=== PATIENT | female | born 1995 | race Caucasian/White ===

== ENCOUNTER → 2017-06-24 09:34 | Outpatient (CLI) | payer MEDICAID, SELFPAY ==
--- NOTE | 2017-06-24 09:39 | US_ITS ---
STUDY: SECOND AND THIRD TRIMESTER OBSTETRICAL ULTRASOUND REASON FOR EXAM: Female, 22 years old. Routine survey. LMP: February 10, 2017. TECHNIQUE: Transabdominal PRIOR ULTRASOUND: Comparison is made with prior study dated May 23, 2017. FINDINGS: There is a single intrauterine fetus. The fetus is in a variable presentation. There is demonstrated cardiac activity with a heart rate of 155 bpm. There is a normal amniotic fluid volume. The largest amniotic fluid pocket measures 5.5 cm x 5.4 cm. The placenta is anterior and fundal in location and is not low lying. There are Grade 0 placental changes. The cervix measures 3.4 cm in length. The adnexal regions are not visualized. BIOMETRY: BPD: 4.26 cm: 19 weeks, 0 days HC: 15.86 cm: 18 weeks, 6 days AC: 13.62 cm: 19 weeks, 1 days FL: 2.62 cm: 8 weeks, 0 days CI: 80% FL/BPD: 62% FL/HC: FL/AC: 19% HC/AC: 1.16 age by current US: 18 weeks, 6 days. DARCIE by current US: November 19, 2017. Estimated weight: 247 grams, +/- 36 grams, 17 %. age by prior US: 18 weeks, 6 days. DARCIE by prior US: November 19, 2017. Age by LMP: 19 weeks, 1 days. DARCIE by LMP: November 17, 2017. ANATOMY: Gender: Male Cranium: Normal lateral ventricles. Normal choroid plexus. Normal cerebellum. Normal cisterna magna. Normal face, nose and lips. Chest: Normal 4-chamber heart. Abdomen/Pelvis: Normal diaphragm. Normal stomach. Normal abdominal wall. Normal cord insertion. Normal 3 vessel cord. Normal kidneys. Normal bladder. Spine: Normal cervical spine. Normal thoracic spine. Normal lumbar spine. Normal sacrum. Extremities: Normal bilateral upper extremities. Normal bilateral lower extremities. US/OB Anatomy Scan IMPRESSION: There is a single live intrauterine gestation with a mean gestational age of 18 weeks and 6 days. The measurements obtained today fall within the normal expected range. Electronically Signed: Chas Covarrubias MD at 12:35 EST Tel [phone], Service support ,
== END ==
PROVIDERS: Visit Provider Nurse Practitioner Women's Health
DX: Z34.02 Encounter for supervision of normal first pregnancy, second trimester (principal)
CPT/HCPCS: 76805

== ENCOUNTER 2017-07-06 23:41 | Emergency (ER) | payer MEDICAID, SELFPAY ==
[2017-07-06 23:42] VITALS: BP 116/63; PULSE 103; RESP 15; TEMP 35.9; BMI 27.3
[2017-07-07] MEDS: 0.9% Normal Saline 1,000 ML 1000 ML IV (00:12)
[2017-07-07] MEDS: Ondansetron 4 MG/2 ML Vial IV (00:13)
[2017-07-07 00:36] LABS: Anion Gap 9 (5-15); BUN 8 mg/dL (7-18); BUN/Creat Ratio 16.5 RATIO (10-20); Calcium,Total 8.5 mg/dL (8.5-10.1); Chloride 107 mmol/L (98-107); Creatinine, Serum 0.48 mg/dL (0.55-1.02); EST Glomerular Filtration Rate 170 mL/min (>60); Est Glom Filt Rate - Afr Amer 206 mL/min (>60); Estimated Creatinine Clearance 178.49 ml/min; Glucose 93 mg/dL (74-106); Potassium 3.4 mmol/L (3.5-5.1); Sodium Level 140 mmol/L (136-145)
--- NOTE | 2017-07-07 01:35 | ED.DCSUM_ITS ---
- ER Visit Summary Date of Service: 07/07/17 Chief Complaint: Vomiting and diarrhea History of Present Illness: The patient is a [address] Adrian Avalos and Dr. Kim. She is a at 21 weeks and 0 days . She reports she has vomiting and diarrhea that began yesterday. Said 7-8 episodes of diarrhea. She had 2 episodes of emesis. There is been no blood in either. No black stools. She reports that she has cramping lower abdominal pain is 8 out of 10 at worst and 510 currently. Is worsened by nothing relieved by nothing. She does reports that decreased movement. She denies any vaginal bleeding discharge. Patient denies sick contacts. Has not been camping out of the country. No possible bad food exposure. Does not drink well water. Patient reports that she is on antibiotic last month for a facial abscess. She does not remember the name of this. Physical Examination: Vitals: Stable. Afebrile. General: Well-nourished and well-developed. Head: Normocephalic atraumatic. Neck: Supple, no lymphadenopathy. No JVD. Nontender. Cardiovascular: Regular rate and rhythm. No murmurs. Respiratory: No respiratory distress. Clear to auscultation bilaterally. Abdominal: Soft, mild left lower quadrant tenderness to palpation, nondistended , normal bowel sounds. No guarding, rebound, or peritoneal signs. Gravid uterus. Back: Nontender. Extremities: Nontender, no edema. Skin: Normal color, no rash. Neurologic: Alert and oriented ?3. Cranial nerves II through XII are intact. Normal strength and sensation. Psych: Normal affect. Test Results: Chem-7 is marked for potassium at 3.4 and creatinine 0.48. Emergency Department Course and Treatment: The heart tones were 167. The patient was treated with Zofran IV. She was given a liter normal saline. She has had no vomiting or diarrhea while here. Treatment Plan: Patient was discussed with Dr. Cain. At this time there is no need for her to go to OB for monitoring. She will be discharged with Zofran instructed follow-up her primary care physician 1-2 days not improving. Disposition: To home in improved and stable condition. Impression: 1. Vomiting/diarrhea. 2. Second trimester . This note was generated with [employer] software. It may contain incorrect words, spelling, and punctuation that were not noted in review of the chart prior to signing ED Disposition - Plan for ED Patient: Disposition: Home or Assisted Living Chief Complaint: Nausea/Vomiting/Diarrhea Instructions: ED Vomiting Diarrhea Nonspecific Ad Prescriptions: Ondansetron [Zofran Odt] 4 mg PO Q8H PRN PRN #10 tablet PRN Reason: Nausea Referrals: Doctor,Your [STAFF PHYSICIAN] - 1-2 Days if not improving
[2017-07-07] MEDS: Ondansetron ODT 4 MG Tablet PO (01:45)
[2017-07-07 01:46] VITALS: BP 106/69; PULSE 110; RESP 15; O2SAT 100
== END 2017-07-07 01:54 | disposition home or self-care (01) ==
PROVIDERS: Emergency Provider Emergency Medicine; PCP Nurse Practitioner Family
DX: O21.9 Vomiting of pregnancy, unspecified (principal); O99.89 Other specified diseases and conditions complicating pregnancy, childbirth and the puerperium; R19.7 Diarrhea, unspecified; O99.332 Smoking (tobacco) complicating pregnancy, second trimester; Z3A.21 21 weeks gestation of pregnancy
CPT/HCPCS: 80048; 96361; 96374; 99283; J7030; J2405

== ENCOUNTER → 2017-08-27 14:33 | Outpatient (CLI) | payer MEDICAID, SELFPAY ==
[2017-08-27 15:34] LABS: Absolute Lymphocyte Count 1.65 X10^3/ul (0.83-4.51); Absolute Neutrophil Count 10.3 X10^3/uL (2.0-7.7); Basophil# 0.01 X10^3/uL; Basophil% 0.1 % (0-1); Eosinophils% 0.8 % (0-5); Hemoglobin 9.6 g/dl (12.0-15.0); Lymphocyte # 1.65 X10^3/ul (4.0); Lymphocyte % 12.9 % (19-41); Mean Corp Hgb Conc 33.1 g/gl (32-36); Mean Corpuscular Hgb 31.4 pg (27.0-32.0); Mean Corpuscular Volume 94.8 fL (81-99); Mean Platelet Vol. 9.8 fl (6.2-12.0); Monocyte# 0.71 X10^3/uL; Monocyte% 5.5 % (0-10); Neutrophil # 10.31 X10^3/uL (2.7-7.7); Neutrophil % 80.3 % (47-70); Platelet Count 307 K/mm3 (150-450); RBC Distribution Width CV 13.9 % (11.6-14.6); Red Blood Count 3.06 M/mm3 (4.2-5.4); White Blood Count 12.8 K/mm3 (4.4-11.0)
[2017-08-27 15:54] LABS: Glucose Challenge Gest 1H 50g 126 mg/dL (70-140)
[2017-08-27 16:11] LABS: POSITIVE COUNT NO; POSITIVE DIFFERENTIAL NO; POSITIVE MORPHOLOGY NO
[2017-08-28 09:25] LABS: HIV - WCH Non-Reactive (Nonreactive)
== END ==
PROVIDERS: Visit Provider Nurse Practitioner Women's Health
DX: O09.91 Supervision of high risk pregnancy, unspecified, first trimester (principal); Z3A.00 Weeks of gestation of pregnancy not specified
CPT/HCPCS: 36415; 82950; 85025; 86703; 86850; 86900

== ENCOUNTER → 2017-09-12 17:18 | Outpatient (CLI) | payer MEDICAID, SELFPAY ==
[2017-09-12 17:53] LABS: Amphetamine Urine VISTA NEGATIVE (<1000 ng/mL); Barbiturate Urine VISTA NEGATIVE (< 200 ng/mL); Benzodiazepine Urine VISTA NEGATIVE (< 200 ng/mL); Cocaine Urine VISTA NEGATIVE (< 300 ng/mL); Ecstacy Urine VISTA NEGATIVE (< 500 ng/mL); Methadone Urine VISTA NEGATIVE (< 300 ng/mL); PCP Urine VISTA NEGATIVE (< 25 ng/mL); THC Urine VISTA NEGATIVE (< 50 ng/mL); Vista UDS pH Range 7
== END ==
PROVIDERS: Visit Provider Nurse Practitioner Women's Health
DX: Z87.898 Personal history of other specified conditions (principal)
CPT/HCPCS: 80307

== ENCOUNTER → 2017-09-24 13:38 | Outpatient (CLI) | payer MEDICAID, SELFPAY | PROVIDERS: Visit Provider Obstetrics & Gynecology | DX: O99.019 Anemia complicating pregnancy, unspecified trimester (principal); Z3A.00 Weeks of gestation of pregnancy not specified | CPT/HCPCS: 36415 ==

== ENCOUNTER → 2017-09-26 15:10 | Outpatient (CLI) | payer MEDICAID, SELFPAY ==
[2017-09-26 16:34] LABS: Absolute Lymphocyte Count 2.04 X10^3/ul (0.83-4.51); Absolute Neutrophil Count 9.5 X10^3/uL (2.0-7.7); Basophil# 0.01 X10^3/uL; Basophil% 0.1 % (0-1); Eosinophil# 0.15 X10^3/uL; Eosinophils% 1.2 % (0-5); Hematocrit 30.1 % (37-47); Hemoglobin 9.8 g/dl (12.0-15.0); Lymphocyte # 2.04 X10^3/ul (4.0); Lymphocyte % 16.6 % (19-41); Mean Corp Hgb Conc 32.6 g/gl (32-36); Mean Corpuscular Hgb 30.8 pg (27.0-32.0); Mean Corpuscular Volume 94.7 fL (81-99); Monocyte# 0.58 X10^3/uL; Monocyte% 4.7 % (0-10); Neutrophil # 9.47 X10^3/uL (2.7-7.7); Neutrophil % 76.8 % (47-70); POSITIVE COUNT NO; POSITIVE DIFFERENTIAL NO; POSITIVE MORPHOLOGY NO; Platelet Count 317 K/mm3 (150-450); RBC Distribution Width CV 14.1 % (11.6-14.6); RBC Distribution Width SD 48.6 fl (35.1-43.9); Red Blood Count 3.18 M/mm3 (4.2-5.4); White Blood Count 12.3 K/mm3 (4.4-11.0)
== END ==
PROVIDERS: Visit Provider Nurse Practitioner Women's Health
DX: O99.019 Anemia complicating pregnancy, unspecified trimester (principal); Z3A.00 Weeks of gestation of pregnancy not specified
CPT/HCPCS: 85025

== ENCOUNTER → 2017-10-22 15:13 | Outpatient (CLI) | payer MEDICAID, SELFPAY ==
[2017-10-22 16:23] LABS: Group B Strep DNA By PCR Negative (Negative); Internal Control PASS; Probe Check PASS; Specimen Processing Control PASS
== END ==
PROVIDERS: Visit Provider Nurse Practitioner Women's Health
DX: Z34.90 Encounter for supervision of normal pregnancy, unspecified, unspecified trimester (principal); Z3A.36 36 weeks gestation of pregnancy
CPT/HCPCS: 87081; 87653

== ENCOUNTER 2017-10-24 21:52 | Outpatient (CLI) | payer MEDICAID, SELFPAY ==
[2017-10-24 22:29] VITALS: BMI 31.4
[2017-10-24 22:56] LABS: ROM Internal Control Test YES-OK TO RESULT pt. (Internal QC); ROM Patient Test Negative (Negative)
--- NOTE | 2017-10-25 07:14 | OB.TRI.NOTE ---
- Problem List (1) False labor Status: Acute History of Present Illness Date of Service: 10/24/17 Was patient seen by the physician?: No Reason For Visit: R/O LABOR Date of Service: 10/24/17 History of Present Illness: false labor questionable lof Allergies No Known Allergies Allergy (Verified 10/24/17 22:32) - Pertinent Past Medical History Medical History: Past Medical History (Last Reviewed 10/22/17 @ 13:28 by Carol Dela Cruz) Anxiety and depression Surgical History: Past Surgical History (Last Reviewed 10/22/17 @ 13:28 by Carol Dela Cruz) gallbladder surgery NST - FHR Rate Baby A Baseline: 140-150 Variability:: Moderate Accelerations:: 15 x 15 Decelerations:: None NST Reactive:: Yes FHR Category:: Category I Uterine Activity:: irregular Impression/Plan false labor dc home labor precautions kick counts
== END 2017-10-24 23:18 | disposition home or self-care (01) ==
LOC: WPOUT 22:13 → WP 22:14
PROVIDERS: Visit Provider Obstetrics & Gynecology
DX: O47.9 False labor, unspecified (principal); Z3A.00 Weeks of gestation of pregnancy not specified
CPT/HCPCS: 59025; 59050; 84112; 99218; G0378

== ENCOUNTER 2017-10-25 19:50 | Outpatient (CLI) | payer MEDICAID, SELFPAY ==
[2017-10-25 21:05] VITALS: BMI 31.3
--- NOTE | 2017-10-25 22:40 | OB.TRI.NOTE ---
- Problem List (1) Decreased movement Status: Acute (2) False labor Status: Acute History of Present Illness Date of Service: 10/25/17 Was patient seen by the physician?: Yes Reason For Visit: NST Date of Service: 10/25/17 Final DARCIE: 11/17/17 Gestational age: 36 Weeks and 5 Days History of Present Illness: 22 yo @ 36 weeks presents with decreased movement and follow up from last night, lower pelvic pain. she co some contractions, and feels some movememnt but less. denie sany vaginal bleeding or lof today Allergies No Known Allergies Allergy (Verified 10/25/17 21:26) - Pertinent Past Medical History Medical History: Past Medical History (Last Reviewed 10/22/17 @ 13:28 by Carol Dela Cruz) Anxiety and depression Surgical History: Past Surgical History (Last Reviewed 10/22/17 @ 13:28 by Carol Dela Cruz) gallbladder surgery Physical Exam General: Alert, Cooperative, No apparent distress HEENT: Atraumatic, Normocephalic. Negative for: Thyromegaly, Lymphadenopathy Cardiovascular: Regular rate Lungs: Normal air movement Abdomen: Soft, Non Tender, Gravid Neurological: Deep Tendon Reflexes 2+/4 and Symmetrical, Neuro grossly intact. Negative for: Clonus SOFTWARE QUALITY ASSURANCE SPECIALIST: Normal external genitalia. Negative for: Vulvar lesions Estimated gestational size: Appropriate for gestational size Presentation: Cephalic NST - FHR Rate Baby A Baseline: 150-160 Variability:: Minimal, Moderate Accelerations:: 15 x 15 Decelerations:: Variable NST Reactive:: Yes FHR Category:: Category I Uterine Activity:: irregular Impression/Plan 36 weeks false labor decreased movement limited US doen at bedside- josué 12 cm and 8/8 bpp. reassuring status, extended monitoring and dc home kick counts
--- NOTE | 2017-10-25 22:43 | OB.TRI.HP_ITS ---
- Problem List (1) Decreased movement Status: Acute (2) False labor Status: Acute History of Present Illness Date of Service: 10/25/17 Was patient seen by the physician?: Yes Reason For Visit: NST Date of Service: 10/25/17 Final DARCIE: 11/17/17 Gestational age: 36 Weeks and 5 Days History of Present Illness: 22 yo @ 36 weeks presents with decreased movement and follow up from last night, lower pelvic pain. she co some contractions, and feels some movememnt but less. denie sany vaginal bleeding or lof today Allergies No Known Allergies Allergy (Verified 10/25/17 21:26) - Pertinent Past Medical History Medical History: Past Medical History (Last Reviewed 10/22/17 @ 13:28 by Carol Dela Cruz) Anxiety and depression Surgical History: Past Surgical History (Last Reviewed 10/22/17 @ 13:28 by Carol Dela Cruz) gallbladder surgery Physical Exam General: Alert, Cooperative, No apparent distress HEENT: Atraumatic, Normocephalic. Negative for: Thyromegaly, Lymphadenopathy Cardiovascular: Regular rate Lungs: Normal air movement Abdomen: Soft, Non Tender, Gravid Neurological: Deep Tendon Reflexes 2+/4 and Symmetrical, Neuro grossly intact. Negative for: Clonus ENTRY ANALYST: Normal external genitalia. Negative for: Vulvar lesions Estimated gestational size: Appropriate for gestational size Presentation: Cephalic NST - FHR Rate Baby A Baseline: 150-160 Variability:: Minimal, Moderate Accelerations:: 15 x 15 Decelerations:: Variable NST Reactive:: Yes FHR Category:: Category I Uterine Activity:: irregular Impression/Plan 36 weeks false labor decreased movement limited US doen at bedside- josué 12 cm and 8/8 bpp. reassuring status, extended monitoring and dc home kick counts
== END 2017-10-25 22:07 | disposition home or self-care (01) ==
LOC: WPOUT 20:29 → WP 20:30
PROVIDERS: Visit Provider Obstetrics & Gynecology
DX: O36.8130 Decreased fetal movements, third trimester, not applicable or unspecified (principal); O47.03 False labor before 37 completed weeks of gestation, third trimester; Z3A.36 36 weeks gestation of pregnancy
CPT/HCPCS: 59025; 59050; 76815; 99218; G0378

== ENCOUNTER → 2017-11-05 14:49 | Outpatient (CLI) | payer MEDICAID, SELFPAY ==
[2017-11-05 15:33] LABS: Amphetamine Urine VISTA NEGATIVE (<1000 ng/mL); Barbiturate Urine VISTA NEGATIVE (< 200 ng/mL); Benzodiazepine Urine VISTA NEGATIVE (< 200 ng/mL); Cocaine Urine VISTA NEGATIVE (< 300 ng/mL); Ecstacy Urine VISTA NEGATIVE (< 500 ng/mL); Methadone Urine VISTA NEGATIVE (< 300 ng/mL); PCP Urine VISTA NEGATIVE (< 25 ng/mL); THC Urine VISTA NEGATIVE (< 50 ng/mL); Vista UDS pH Range 7
[2017-11-05 17:47] LABS: Absolute Lymphocyte Count 1.73 X10^3/ul (0.83-4.51); Absolute Neutrophil Count 10.6 X10^3/uL (2.0-7.7); Basophil# 0.02 X10^3/uL; Basophil% 0.1 % (0-1); Eosinophils% 0.7 % (0-5); Hematocrit 32.1 % (37-47); Hemoglobin 10.4 g/dl (12.0-15.0); Lymphocyte # 1.73 X10^3/ul (4.0); Lymphocyte % 12.8 % (19-41); Mean Corp Hgb Conc 32.4 g/gl (32-36); Mean Corpuscular Hgb 30.1 pg (27.0-32.0); Mean Corpuscular Volume 92.8 fL (81-99); Mean Platelet Vol. 10.3 fl (6.2-12.0); Monocyte# 0.97 X10^3/uL; Monocyte% 7.2 % (0-10); Neutrophil # 10.64 X10^3/uL (2.7-7.7); Neutrophil % 78.6 % (47-70); Platelet Count 405 K/mm3 (150-450); RBC Distribution Width CV 14.6 % (11.6-14.6); RBC Distribution Width SD 48.6 fl (35.1-43.9); Red Blood Count 3.46 M/mm3 (4.2-5.4); White Blood Count 13.5 K/mm3 (4.4-11.0)
[2017-11-05 18:00] LABS: Differential Comment SCANNED; Differential Indicated SCAN CRITERIA MET; POSITIVE COUNT NO; POSITIVE DIFFERENTIAL NO; POSITIVE MORPHOLOGY YES
== END ==
PROVIDERS: Visit Provider Obstetrics & Gynecology
DX: O99.019 Anemia complicating pregnancy, unspecified trimester (principal); Z87.898 Personal history of other specified conditions; Z3A.00 Weeks of gestation of pregnancy not specified
CPT/HCPCS: 36415; 80307; 85025

== ENCOUNTER 2017-11-10 02:10 | Outpatient (CLI) | payer MEDICAID, SELFPAY ==
[2017-11-10 02:33] VITALS: BMI 32.3
[2017-11-10 03:49] LABS: ROM Internal Control Test YES-OK TO RESULT pt. (Internal QC); ROM Patient Test Negative (Negative)
--- NOTE | 2017-11-10 13:04 | OB.TRI.NOTE ---
History of Present Illness Date of Service: 11/10/17 Was patient seen by the physician?: No Reason For Visit: R/O LABOR Date of Service: 11/10/17 History of Present Illness: co ctx Allergies No Known Allergies Allergy (Verified 11/10/17 03:07) - Pertinent Past Medical History Medical History: Past Medical History (Last Reviewed 11/05/17 @ 13:32 by Vijyaa Ellison) Anxiety and depression Surgical History: Past Surgical History (Last Reviewed 11/05/17 @ 13:32 by Vijaya Ellison) gallbladder surgery NST - FHR Rate Baby A Baseline: 150 Variability:: Moderate Accelerations:: 15 x 15 Decelerations:: None NST Reactive:: Yes FHR Category:: Category I Uterine Activity:: q2-5 minutes but irregular, no cervical change Impression/Plan no cervical change, false labor, dc home precautions
== END 2017-11-10 04:35 | disposition home or self-care (01) ==
LOC: WPOUT 02:46 → WP 02:57
PROVIDERS: Visit Provider Obstetrics & Gynecology
DX: O47.9 False labor, unspecified (principal); O99.340 Other mental disorders complicating pregnancy, unspecified trimester; F32.9 Major depressive disorder, single episode, unspecified; F41.9 Anxiety disorder, unspecified; Z3A.00 Weeks of gestation of pregnancy not specified
CPT/HCPCS: 59025; 59050; 84112; 99218; G0378

== ENCOUNTER 2017-11-13 05:30 | Inpatient (IN) | payer MEDICAID, SELFPAY ==
[2017-11-13 06:00] VITALS: BMI 32.5
[2017-11-13] MEDS: Lactated Ringers 1,000 ML 50 ML IV ×4 (06:05→10:51)
[2017-11-13 06:23] LABS: Hematocrit 30.4 % (37-47); Mean Corp Hgb Conc 32.9 g/gl (32-36); Mean Corpuscular Hgb 29.9 pg (27.0-32.0); Mean Platelet Vol. 9.7 fl (6.2-12.0); Platelet Count 343 K/mm3 (150-450); RBC Distribution Width CV 14.6 % (11.6-14.6); RBC Distribution Width SD 48.3 fl (35.1-43.9); Red Blood Count 3.34 M/mm3 (4.2-5.4); White Blood Count 16.4 K/mm3 (4.4-11.0)
[2017-11-13 06:25] LABS: Scan Indicated on CBC? Y/N NO
[2017-11-13] MEDS: Ondansetron 4 MG/2 ML Vial IV (08:12)
[2017-11-13] MEDS: Amnioinfusion- 0.9% NS 1,000 ML IV.SOLN. 200 ML INTRA-UTER (10:00)
[2017-11-13] MEDS: Oxytocin 30 units/NS 500 ml 30 UNITS/500 ML IV.SOLN 334 UNITS IV (11:20)
[2017-11-13] MEDS: Oxytocin 30 units/NS 500 ml 30 UNITS/500 ML IV.SOLN 167 UNITS IV (11:50)
[2017-11-13 17:09] VITALS: BP 108/66; PULSE 105; RESP 16; TEMP 38.1; O2SAT 98
[2017-11-13] MEDS: Acetaminophen 500 MG Tablet 1000 MG PO (17:17)
--- NOTE | 2017-11-13 20:05 | PCM.HP.OB ---
- Problem List (1) Anemia affecting Status: Acute Qualifiers: Comment: Fe started. 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 recommend random drug screening. History Date of Admission: 11/13/17 Final DARCIE: 11/17/17 Gestational age: 39 Weeks and 3 Days History of this : This is a 22 year-old, at 39 weeks gestational age presents IAL 5 cm dilated. she has had an uncomplicated Medical History: Medical History (Last Reviewed 11/12/17 @ 14:24 by Carol Dela Cruz) Anxiety and depression F41.8 Surgical History: Surgical History (Last Reviewed 11/12/17 @ 14:24 by Carol Dela Cruz) gallbladder surgery Allergies No Known Allergies Allergy (Verified 11/13/17 06:02) Home Medications: Home Medications vitamin,calcium,ohqkamnx-xiud-fmcfh acid tablet 1 tab PO QDAY 06/17/17 ferrous sulfate 325 mg (65 mg iron) tablet 325 mg PO QDAY tab 09/12/17 Citalopram Hydrobromide [Citalopram HBr] 20 mg PO QDAY 10/24/17 Smoking Status: Light Smoker (<10/day) Alcohol: None Number of Fetus(es): 1 Heart Tracin-160 moderate viarbaility reactive no decels TOCO Analysis: q2-3 History Past Pregnancies: Past Pregnancies Delivery Date Name GA/Weeks Outcome Route Weight Infant Gender Labor Length Anesthesia Delivery Location Provider FOB frida 39 Labs: Mom's Labs & Results 11/13/17 11/13/17 06:05 06:05 WBC 16.4 H RBC 3.34 L Hgb 10.0 L Hct 30.4 L MCV 91.0 MCH 29.9 MCHC 32.9 RDW 14.6 RDW Differential 48.3 H Plt Count 343 MPV 9.7 Blood Type O POSITIVE Antibody Screen NEGATIVE Course Did the patient receive Yes care? Labs Blood Type: O RH: POSITIVE RPR/VDRL/Syphilis Nonreactive Rubella status Immune HbSAg Negative Date Done: 06/20/17 Chlamydia Negative Gonorrhea Negative HIV/AIDS Non-Reactive Group B Strep: Negative Current Obstetrical History Gestational Diabetes No Incompetent Cervix No Infertility No IUGR No Macrosomia No Hypertension/Pre-eclampsia No Placenta Previa/Abruption No PTL/PROM No Uterine anomaly No Oligohydramnios No Polyhydramnios No Multiple gestation No Past Medical History Asthma No Diabetes No Hypertension No Heart disease No Mitral valve prolapse No Neurologic/Seizure disorder/ No Migraines Kidney disease No Liver disease No Varicosities No Clotting disorders/Hx of DVT No Thyroid Dysfunction No Other medical diseases No Psychiatric disorders Yes: anxiety, depression Major trauma No Abnormal PAP smear No Sleep apnea No Mammogram in the last 2 years No Social History Marital Status: SINGLE Alleged father Richard Glass Hx Smoking Yes Smoking Status Light Smoker (<10/day) How long have you used n/a substances (years)? What date/time did you last n/a use any of the above? Have you had any previous n/a inpatient or outpatient treatment Expected Delivery Method: Spontaneous Vaginal Review of Systems Constitutional: Denies: Fever, Malaise Eyes: Denies: Blurred vision, Vision Change HEENT: Denies: Head Aches, Visual Changes Cardiovascular: Denies: Chest Pain, Palpitations Respiratory: Denies: Cough, Shortness of Breath, Wheezing Gastrointestinal: Denies: Abdominal Pain, Diarrhea, Nausea, Vomiting Genitourinary: Denies: Dysuria, Hematuria Musculoskeletal: Denies: Joint Pain, Muscle pain Skin: Denies: Lesions, Rash Neurological: Denies: Blurred vision, Focal weakness, Headaches Psychiatric: Denies: Anxiety, Depression Endocrine: Denies: Heat/ Cold Intolerance Hematologic/ Lymphatic: Denies: Easy Bruising, Easy Bleeding Physical Exam Vitals: Vital Signs Temp Pulse Resp BP Pulse Ox 100.6 F H 105 H 16 108/66 98 11/13/17 17:09 11/13/17 17:09 11/13/17 17:09 11/13/17 17:09 11/13/17 17:09 General: Alert, Cooperative, No apparent distress HEENT: Atraumatic, Normocephalic. Negative for: Thyromegaly, Lymphadenopathy Cardiovascular: Regular rate Lungs: Normal air movement Abdomen: Soft, Non Tender, Gravid Neurological: Deep Tendon Reflexes 2+/4 and Symmetrical, Neuro grossly intact. Negative for: Clonus DRAWING IN MACHINE TENDER HELPER: Normal external genitalia. Negative for: Vulvar lesions Estimated gestational size: Appropriate for gestational size Presentation: Cephalic Cervix Dilation (cm): 3 Assessment/Plan All Active Problems (Last Reviewed 11/12/17 @ 14:24 by Carol Dela Cruz) False labor (Acute) Decreased movement (Acute) Anemia affecting (Acute) Tobacco use affecting in second trimester, antepartum (Acute) Anxiety with depression (Acute) Supervision of high risk in first trimester (Acute) History of drug abuse in remission (Acute) This is a 22 year-old, at 39 weeks gestational age presetns IAL epidural exp management gbs neg
--- NOTE | 2017-11-13 20:08 | PCM.OB.VAG ---
- Problem List (1) Anemia affecting Status: Acute Qualifiers: Comment: Fe started. 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 recommend random drug screening. Vaginal Delivery Maternal Presentation: Active Labor 22 yo @ 39w3d IAL Amniotic Membrane Rupture Type: Artificial Amniotic Fluid Description: Clear Final DARCIE: 11/17/17 Gestational age: 39 Weeks and 3 Days Date of Procedure: 11/13/17 Pre-Operative Diagnosis: ial Post-Operative Diagnosis: ial Surgery/ Procedure Performed: Spontaneous Vaginal Delivery Type of Anesthesia: Epidural Description of Procedure: Patient began pushing and delivered the head in the DAYANA presentation. The head was delivered atraumatically and a loose nuchal cord ?1 was identified and easily reduced over the infant's head. The anterior and posterior shoulders delivered without complication followed by the rest of the and the infant was placed on the maternal abdomen. Delayed cord clamping was employed for approximately 60 seconds. Cord was clamped and cut and gentle traction was applied to the cord and the placenta delivered spontaneously immediately following it was noted to be intact with three-vessel cord. The perineum and vagina were inspected and noted to have no laceration. EBL was 200 cc. Patient and tolerated delivery well. Presentation: DAYANA Placental Delivery Description: Spontaneous Placenta Disposition: [facility] Cord Vessel Description: 3 Vessels Nuchal Cord Compression: With compression Cord Entanglement: Around neck x 1, loose Estimated Blood Loss: 200 A gender: Male Episiotomy Description: None Laceration: None Medications given after delivery: IV Pitocin Complications: None
[2017-11-13 20:12] VITALS: BP 113/54; PULSE 84; RESP 16; TEMP 36.8; O2SAT 99
[2017-11-13] MEDS: Naproxen 250 MG Tablet PO (20:20)
[2017-11-14 00:15] VITALS: BP 113/60; PULSE 92; RESP 18; TEMP 36.7; O2SAT 99
[2017-11-14 04:10] VITALS: BP 110/56; PULSE 78; RESP 16; TEMP 37
[2017-11-14 08:00] VITALS: BP 109/48; PULSE 70; RESP 16; TEMP 36.5
[2017-11-14 14:00] VITALS: BP 104/62; PULSE 66; RESP 16; TEMP 36.8; O2SAT 99
--- NOTE | 2017-11-14 14:02 | CASEMGMT ---
Social Work Note Labor and Delivery Unit Consult received per the ambulance mechanic and noted for maternal history of depression, anxiety; remote history of drug abuse 3 years ago. Medical record has been reviewed. Plan: Will see patient/mother of baby for assessment and provision of resources as indicated in the morning, tomorrow 11-15-17. -OSIEL Boateng, OCCUPATIONAL THERAPY DEPARTMENT CHAIR
[2017-11-14 20:10] VITALS: BP 112/66; PULSE 73; RESP 16; TEMP 37.2
[2017-11-15 02:15] VITALS: BP 111/51; PULSE 73; RESP 16; TEMP 37.1
[2017-11-15 08:45] VITALS: BP 113/59; PULSE 74; RESP 16; TEMP 37.1; O2SAT 99
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
--- NOTE | 2017-11-15 12:30 | CASEMGMT ---
Social Work Note Labor and Delivery Spoke with patient/mother of baby (MOB) primary nurse Eder today. Let RN know that MOB is interested in restarting Celexa at discharge. RN agrees to let OBGYN know when discharge rounds are made. Spoke with Raina in [facility] of MOB having some question about nicotine and how this is passed through breast milk, whether MOB can pump and dump similarly to alcohol. Raina will talk with MOB questions. No other services requested or indicated. See social work assessment documented earlier this date for details of social work interactions with MOB and resources provided. -OSIEL Boateng, PLAY THERAPIST
--- NOTE | 2017-11-15 12:47 | PCM.PN.OB ---
Subjective: doing well no complaints - Physical Exam General: Alert, Oriented x3 Vital Signs Temp Pulse Resp BP Pulse Ox 98.8 F 74 16 113/59 L 99 11/15/17 08:45 11/15/17 08:45 11/15/17 08:45 11/15/17 08:45 11/15/17 08:45 Oxygen Delivery Method Room Air Weight: 161 lb 6.4 oz Body Mass Index (BMI) 32.5 Intake and Output for Last 24 Hours 11/13/17 11/14/17 11/15/17 23:59 23:59 23:59 Intake Total 500 / 500 Balance 500 / 500 Medical Necessity - Tobacco Use Smoking Status: Light Smoker (<10/day) Assessment/Plan All Active Problems (Last Reviewed 11/12/17 @ 14:24 by Carol Dela Cruz) False labor (Acute) Decreased movement (Acute) Anemia affecting (Acute) Tobacco use affecting in second trimester, antepartum (Acute) Anxiety with depression (Acute) Supervision of high risk in first trimester (Acute) 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
--- NOTE | 2017-11-15 12:50 | PCM.DCVAG ---
Discharge Diet: No Restrictions Discharge Activity: Return to Normal Activity, May not drive while taking narcotic pain medications., May Shower May resume sexual activity in: 4-6 weeks Call your doctor if your incision/area has: Continuous Slow Oozing, Sudden Increased Bleeding, Increased Pain/ Swelling, Increased Redness, Foul Smelling Discharge Additional Instructions: If you experience any of the following, contact your healthcare provider. Bleeding that soaks a pad every hour for 2 hours Fever 100.4 or higher Unrelieved incision or abdominal pain Swelling, redness, discharge or bleeding from your incision or episiotomy site Your incision begins to separate Problems urinating (including inability to urinate or burning while urinating). Visual changes Severe headache Flu-like symptoms Pain or redness in one of both of your breasts Pain, warmth, tenderness or swelling in your legs, especially the calf area Frequent nausea and vomiting Symptoms of depression or anxiety If you experience any of the following, call 911 or go to the nearest Emergency Room. Chest pain Problems breathing Seizure activity Partial or complete paralysis of a body part, slurred speech, weakness or drooping of the face, or a sudden inability to walk or hold your balance Allergies/Adverse Reactions: Allergies No Known Allergies Allergy (Verified 11/13/17 06:02) Medications to take at Discharge vitamin,calcium,uodjuqjc-fflr-kbfaw acid tablet 1 tab PO QDAY 06/17/17 ferrous sulfate 325 mg (65 mg iron) tablet 325 mg PO QDAY tab 09/12/17 Citalopram Hydrobromide [Citalopram HBr] 20 mg PO QDAY 10/24/17 Please Follow Up With: Padmini Cain MD - [phone] When: Call to make an appointment with your doctor in 6 weeks. If you had elevated Blood pressure or 4th degree laceration you will need to be seen in 2 weeks. Primary Care Physician: Care Physician,No Primary [Primary Care Provider] -
--- NOTE | 2017-11-15 12:51 | DCINST_ITS ---
Discharge Diet: No Restrictions Discharge Activity: Return to Normal Activity, May not drive while taking narcotic pain medications., May Shower May resume sexual activity in: 4-6 weeks Call your doctor if your incision/area has: Continuous Slow Oozing, Sudden Increased Bleeding, Increased Pain/ Swelling, Increased Redness, Foul Smelling Discharge Additional Instructions: If you experience any of the following, contact your healthcare provider. * Bleeding that soaks a pad every hour for 2 hours * Fever 100.4 or higher * Unrelieved incision or abdominal pain * Swelling, redness, discharge or bleeding from your incision or episiotomy site * Your incision begins to separate * Problems urinating (including inability to urinate or burning while urinating) . * Visual changes * Severe headache * Flu-like symptoms * Pain or redness in one of both of your breasts * Pain, warmth, tenderness or swelling in your legs, especially the calf area * Frequent nausea and vomiting * Symptoms of depression or anxiety If you experience any of the following, call 911 or go to the nearest Emergency Room. * Chest pain * Problems breathing * Seizure activity * Partial or complete paralysis of a body part, slurred speech, weakness or drooping of the face, or a sudden inability to walk or hold your balance Allergies/Adverse Reactions: Allergies No Known Allergies Allergy (Verified 11/13/17 06:02) Medications to take at Discharge vitamin,calcium,tpjsrkdh-aosg-izwuo acid tablet 1 tab PO QDAY 06/17/17 ferrous sulfate 325 mg (65 mg iron) tablet 325 mg PO QDAY tab 09/12/17 Citalopram Hydrobromide [Citalopram HBr] 20 mg PO QDAY 10/24/17 Please Follow Up With: Padmini Cain MD - [phone] When: Call to make an appointment with your doctor in 6 weeks. If you had elevated Blood pressure or 4th degree laceration you will need to be seen in 2 weeks. Primary Care Physician: Care Physician,No Primary [Primary Care Provider] -
[2017-11-15 13:03] VITALS: BP 124/85; PULSE 78; RESP 16; TEMP 37.1; O2SAT 99
== END 2017-11-15 14:40 | disposition home or self-care (01) | DRG 373 ==
PROVIDERS: Admitting Provider Obstetrics & Gynecology; Visit Provider Obstetrics & Gynecology
DX: O69.1XX0 Labor and delivery complicated by cord around neck, with compression, not applicable or unspecified (principal); O99.02 Anemia complicating childbirth; D64.9 Anemia, unspecified; O99.334 Smoking (tobacco) complicating childbirth; F17.210 Nicotine dependence, cigarettes, uncomplicated; O99.344 Other mental disorders complicating childbirth; F11.21 Opioid dependence, in remission; F32.9 Major depressive disorder, single episode, unspecified; F41.8 Other specified anxiety disorders; Z3A.39 39 weeks gestation of pregnancy; Z37.0 Single live birth
CPT/HCPCS: 59025; 59050; 84112; 85027; 86850; 86900; 99218; J7030; J7120; G0378; J2405

== ENCOUNTER 2017-11-18 18:35 | Outpatient (CLI) | payer MEDICAID, SELFPAY | END 2017-11-18 19:40 | disposition home or self-care (01) | LOC: WPOUT 18:41 → WP 18:41 | PROVIDERS: Visit Provider Obstetrics & Gynecology | DX: Z39.1 Encounter for care and examination of lactating mother (principal) | CPT/HCPCS: 96152 ==

== ENCOUNTER → 2017-12-25 17:05 | Outpatient (CLI) | payer MEDICAID, SELFPAY ==
[2017-12-25 18:45] LABS: Chlamydia Trachomatis by PCR Negative (Negative); Neisserai gonorrhoeae by PCR Negative (Negative); Probe Check PASS; Sample Adequacy Control PASS; Specimen Processing Control PASS
[2018-01-01 11:44] LABS: HPV APTIMA, High Risk Negative (Negative)
[2018-01-03 14:07] LABS: HPV Reflexed? NOT INDICATED
== END ==
PROVIDERS: Visit Provider Nurse Practitioner Women's Health
DX: Z11.3 Encounter for screening for infections with a predominantly sexual mode of transmission (principal); Z12.4 Encounter for screening for malignant neoplasm of cervix
CPT/HCPCS: 87491; 87591; 88175; G0145

== ENCOUNTER 2019-02-11 10:33 | Emergency (ER) | payer MEDICAID, SELFPAY ==
[2019-02-11 10:34] VITALS: BP 124/74; PULSE 106; RESP 17; TEMP 36.8; O2SAT 98; BMI 29.0
--- NOTE | 2019-02-11 10:42 | NURSING ---
NO OLD EKGS
--- NOTE | 2019-02-11 11:03 | CT_ITS ---
STUDY: CT BRAIN WITHOUT CONTRAST REASON FOR EXAM: Female, 23 years old. Headaches, syncope and nausea. RADIATION DOSAGE (If Supplied By Facility): CTDIvol = ( 44.99 ) mGy, DLP = ( 694.87 ) mGycm TECHNIQUE: Transaxial CT imaging of the brain was performed without administration of intravenous contrast material. Individualized dose optimization techniques were used for this CT. COMPARISON: No relevant priors. FINDINGS: Normal soft tissue structures. Normal calvarium. Normal size ventricles and extra-axial spaces for the patient's age. Normal white matter tracts of the cerebral hemispheres. Normal basal ganglia and thalami. Normal brainstem. Normal cerebellum. There is no intracranial hemorrhage. There are no findings of an acute ischemic infarction. Normal visualized paranasal sinuses. CT/Brain/Head without Contrast IMPRESSION: Normal unenhanced CT scan of the brain. Electronically Signed: Chas Covarrubias, at 12:29 EDT , Service support ,
[2019-02-11 11:12] VITALS: BP 110/78; PULSE 71; RESP 14; O2SAT 99
[2019-02-11] MEDS: 0.9% Normal Saline 1,000 ML 1000 ML IV (11:22)
[2019-02-11] MEDS: Ketorolac 30 MG/ML Syringe IV (11:23)
[2019-02-11] MEDS: Metoclopramide 10 MG/2 ML Vial IV (11:23)
[2019-02-11] MEDS: DiphenhydrAMINE 50 MG/ML Syringe 25 MG IV (11:24)
[2019-02-11 11:44] LABS: Internal QC Validated? YES +Cl - CLEAR BKGD; Pregnancy, Serum, hCG Quali. NEGATIVE Negative
--- NOTE | 2019-02-11 11:59 | ED.DCSUM_ITS ---
- ER Visit Summary Date of Service: 02/11/19 Chief Complaint: [Syncope,headache] History of Present Illness: The patient is a 23 F [presents to the emergency department with complaint of a syncopal episode that occurred yesterday around 1 PM. Patient remembers being in the kitchen cleaning up and then the next thing she remembered was she was on the floor and her young child was crawling over her. Patient does not have a history of syncope. She denies any chest pain or palpitations. Patient states that subsequently around 1 AM she developed a headache while at work because she works third shift. She complained of photophobia and nausea. Patient states that she gets migraine headaches intermittently. Patient states that she did not have a headache immediately after the syncope or prior to the syncope. Her headache only developed about 12 hours later. She denies any significant neck pain although she is had some mild soreness in her right shoulder and right trapezius.] Patient takes the Depakote shot as a contraceptive. She cannot remember when her last menstrual period was. Physical Examination: [HEENT-PERRLA, EOMI. Cranial nerves II through XII grossly intact. TMs clear. Mucous membranes moist. No adenopathy. No C-spine tenderness on palpation. Patient has some mild tenderness over the right cervical paraspinal musculature into the right trapezius. Cardiovascular-regular rate and rhythm without murmur or ectopy Lungs-clear to auscultation, chest wall stable without crepitus or subcu emphysema Abdomen-normoactive bowel sounds, soft, nontender, no rebound or rigidity, no peritoneal signs. Neuro ezzq-kdruvu-azsd and heel fuentes testing within normal limits, negative Romberg, negative pronator, fundi benign. Extremities-intact ?4, normal range of motion, normal pulses, atraumatic] Test Results: [CT scan of the brain without contrast was unremarkable. hCG was negative.] Emergency Department Course and Treatment: [Was given Reglan, Benadryl, Toradol as well as a liter normal same fluid bolus. Patient's headache mostly resolved.] Treatment Plan: [Follow-up with primary care physician as needed.] Disposition: [Discharged home in stable condition.] Impression: [Syncope-suspect vasovagal Migrainous cephalgia-resolved] This note was generated with [employer] software. It may contain incorrect words, spelling, and punctuation that were not noted in review of the chart prior to signing ED Disposition - Plan for ED Patient: Referrals: Care Physician,No Primary [Primary Care Provider] -
--- NOTE | 2019-02-11 12:03 | ED.DEP ---
ED Disposition - Plan for ED Patient: Instructions: SYNCOPE, Vasovagal, ED, Migraine (Classical) Referrals: Care Physician,No Primary [Primary Care Provider] - Miranda Hobbs MD [STAFF PHYSICIAN] - 3-5 Days
== END 2019-02-11 13:05 | disposition home or self-care (01) ==
PROVIDERS: Emergency Provider Emergency Medicine
DX: R55 Syncope and collapse (principal); G43.909 Migraine, unspecified, not intractable, without status migrainosus; M25.511 Pain in right shoulder; R05 Cough; Z72.0 Tobacco use
CPT/HCPCS: 70450; 84703; 96361; 96374; 96375; 99282; J7030; A4216

== ENCOUNTER 2019-04-28 21:56 | Emergency (ER) | payer MEDICAID, SELFPAY ==
[2019-04-28 21:56] VITALS: BP 114/85; PULSE 127; RESP 20; TEMP 37.1; O2SAT 97; BMI 30.1
--- NOTE | 2019-04-28 22:37 | ED.VISSUMM ---
- ER Visit Summary Date of Service: 04/28/19 Chief Complaint: Cough History of Present Illness: The patient is a 23 F who presents emergency department with a cough that began 5 days ago. She notes associated rhinorrhea. She denies any fevers. She notes her son has the same type of illness but with fevers and her daughter had similar symptoms last week but lasted a couple days and she got over it. No rashes. No vomiting diarrhea. Physical Examination: Afebrile vital signs are stable Gen: Well-nourished well-developed Head: Normocephalic atraumatic Eyes: Perrl EOMI ENT: TMs clear + rhinorrhea moist mucous membranes Neck: Supple no lymphadenopathy no JVD nontender CVS: Regular rate rhythm no murmurs normal S1-S2 Respiratory: No distress clear to auscultation bilaterally chest nontender Abdomen: Soft nontender nondistended normal bowel sounds no masses Back: Nontender Extremity: Nontender no edema Skin: Normal color no rash Neuro: alert orientated ?3 CN II-XII intact normal strength sensation reflexes gait cerebellar Psych: Normal affect normal mood Emergency Department Course and Treatment: Patient was seen at the same time her son was seen. I believe they both have viral upper respiratory infection. Supportive care indicated at this time. Impression: 1. Upper respiratory infection This note was generated with [employer] dictation software. It may contain incorrect words, spelling, and punctuation that were not noted in review of the chart prior to signing ED Disposition - Plan for ED Patient: Disposition: Home or Assisted Living Instructions: URI, Viral, No Abx (Adult)
== END 2019-04-28 23:06 | disposition home or self-care (01) ==
LOC: ED 22:40
PROVIDERS: Emergency Provider Emergency Medicine
DX: J06.9 Acute upper respiratory infection, unspecified (principal)
CPT/HCPCS: 99282

== ENCOUNTER 2019-12-07 10:20 | Emergency (ER) | payer MEDICAID, SELFPAY ==
[2019-12-07 10:21] VITALS: BP 144/86; PULSE 113; RESP 18; TEMP 36.6; O2SAT 100; BMI 30.2
--- NOTE | 2019-12-07 10:27 | NURSING ---
NO OLD EKGS
--- NOTE | 2019-12-07 10:40 | EKG12_ITS ---
Test Reason : Blood Pressure : / mmHG Vent. Rate : 095 BPM Atrial Rate : 095 BPM P-R Int : 142 ms QRS Dur : 082 ms QT Int : 328 ms P-R-T Axes : 022 050 015 degrees QTc Int : 412 ms Normal sinus rhythm Normal ECG Confirmed by SHAKA SMITH, VALE ([id number]), non linear editor SILVIA JONES ([id number]) on 12/09/2019 1:09:28 PM Referred By: JUANITA Confirmed By:VALE MATT MD
--- NOTE | 2019-12-07 10:42 | ED.DCSUM_ITS ---
- ER Visit Summary Date of Service: 12/07/19 Chief Complaint: [Dizziness, headache, chest pain] History of Present Illness: The patient is a 24 F [presents to the emergency department with multiple complaints that started for 5 days ago. Patient states that she initially started with a headache that did not respond to ibuprofen. She describes as throbbing in the frontal portion of her head. Patient had episodes at work yesterday of feeling lightheaded and dizzy and feeling like she might pass out but did not actually pass out. She does complain of some nausea and some intermittent photophobia. She does have history of migraines. Patient also has history of frequent urinary tract infections however she is not have any symptoms at this time. She is had no fever or cough or body aches. She denies sore throat. She denies any exposures to known COVID-19 patients. Patient does work as an EMT. Patient has had similar symptoms in the past. She does have history of anemia as related to prior . She has had prior cholecystectomy. She has no primary care physician currently. Patient states that earlier this morning she started having some chest discomfort as well that she describes as some pressure over her left chest.] No family history of brain tumors or aneurysms. No family history of sudden cardiac . Physical Examination: [HEENT-PERRLA, EOMI. Cranial nerves II through XII grossly intact. TMs clear. Mucous membranes moist. No adenopathy. Cardiovascular-regular rate and rhythm without murmur or ectopy Lungs-clear to auscultation, chest wall stable without crepitus or subcu emphysema Abdomen-normoactive bowel sounds, soft, nontender, no rebound or rigidity, no peritoneal signs. Neuro gxup-qpajvp-bmfc and heel fuentes testing within normal limits, negative Romberg, negative for drift, fundi benign. Extremities-intact ?4, normal range of motion, normal pulses, atraumatic] Test Results: [EKG obtained arrival shows sinus rhythm with a ventricular rate of 95 bpm with no acute segment changes. CBC with differential was normal. Chemistries normal. hCG was negative. Chest x-ray showed nothing acute.] Emergency Department Course and Treatment: [IV line was established and patient was given a liter normal same fluid bolus. Patient given Reglan, Benadryl, and Toradol and her headache is now mostly resolved. Patient denies any chest pain currently.] Treatment Plan: [Patient advised to follow-up with her primary care physician within next 3 to 5 days. Patient advised to push fluids.] Disposition: [Discharged home in stable condition] Impression: [Dizziness Chest pain-etiology uncertain Cephalgia-suspect migraine] This note was generated with [employer] dictation software. It may contain incorrect words, spelling, and punctuation that were not noted in review of the chart prior to signing ED Disposition - Plan for ED Patient: Referrals: Care Physician,No Primary [Primary Care Provider] -
[2019-12-07 10:50] LABS: Absolute Neutrophil Count 6.2 X10^3/uL (2.0-7.7); Basophil# 0.02 X10^3/uL; Basophil% 0.2 % (0-1); Eosinophil# 0.35 X10^3/uL; Eosinophils% 3.8 % (0-5); Hemoglobin 13.6 g/dL (12.0-15.0); Lymphocyte % 23.6 % (19-41); Mean Corp Hgb Conc 33.2 g/dL (32-36); Mean Corpuscular Hgb 30.7 pg (27.0-32.0); Mean Corpuscular Volume 92.6 fL (81-99); Mean Platelet Vol. 10.2 fl (6.2-12.0); Monocyte% 5.4 % (0-10); NRBC Flagged by Analyzer 0 % (0-5); Neutrophil # 6.22 X10^3/uL (2.7-7.7); Neutrophil % 66.8 % (47-70); Platelet Count 329 K/mm3 (150-450); RBC Distribution Width CV 12.2 % (11.6-14.6); RBC Distribution Width SD 41.1 fl (35.1-43.9); Red Blood Count 4.43 M/mm3 (4.2-5.4); White Blood Count 9.3 K/mm3 (4.4-11.0)
[2019-12-07 10:58] LABS: Internal QC Validated? YES +Cl - CLEAR BKGD; Pregnancy, Serum, hCG Quali. NEGATIVE Negative
[2019-12-07 11:03] LABS: Anion Gap 4 (5-15); BUN 6 mg/dL (7-18); BUN/Creat Ratio 7.6 RATIO (10-20); Calcium,Total 8.8 mg/dL (8.5-10.1); Chloride 109 mmol/L (98-107); Creatinine, Serum 0.79 mg/dL (0.55-1.02); EST Glomerular Filtration Rate 95 mL/min (>60); Est Glom Filt Rate - Afr Amer 115 mL/min (>60); Estimated Creatinine Clearance 117.94 ml/min; Glucose 152 mg/dL (74-106); Potassium 3.6 mmol/L (3.5-5.1); Sodium Level 139 mmol/L (136-145)
--- NOTE | 2019-12-07 11:05 | RAD_ITS ---
STUDY: X-RAY CHEST REASON FOR EXAM: Female, 24 years old. PT WITH HEADACHE, Cough, chest TIGHTNESS, DIZZINESS STARTING SATURDAY, , HX DRUG ABUSE TECHNIQUE: Single AP portable view of the chest. COMPARISON: None. FINDINGS: EKG electrodes are seen. The lungs are clear and expanded. There is no demonstrated pleural abnormality. Normal size heart. Normal mediastinum and lyn. Normal visualized pulmonary arteries. Normal visualized aortic arch and descending thoracic aorta. Normal visualized thoracic spine. Normal visualized ribs, clavicles, and shoulders. There is no demonstrated abnormality of the visualized soft tissue structures of the upper abdomen. RAD/Chest 1 View (Portable) IMPRESSION: Normal x-ray examination of the chest. Electronically Signed: Chas Covarrubias, at 11:54 EDT , Service support ,
[2019-12-07] MEDS: DiphenhydrAMINE 50 MG/ML Syringe 25 MG IV (11:11)
[2019-12-07] MEDS: Metoclopramide 10 MG/2 ML Vial IV (11:12)
[2019-12-07] MEDS: 0.9% Normal Saline 1,000 ML 1000 ML IV (11:12)
[2019-12-07] MEDS: Ketorolac 30 MG/ML Syringe IV (11:12)
[2019-12-07 11:21] VITALS: BP 112/71; PULSE 91; RESP 20; TEMP 37.3; O2SAT 98
[2019-12-07 11:27] LABS: Mucous, Urine 0 SEEN /hpf (<or=2+); Red Blood Cells-Urine 0 SEEN /hpf (0-5)
[2019-12-07 11:29] LABS: Color, Urine Yellow (Yellow); Glucose, Dipstick Normal (Normal); Ketone-Dipstick Negative (Negative); Leukocyte Esterase-Dipstick 25 /ul (Negative); Nitrite-Dipstick Negative (Negative); Occult Blood-Urine Negative /ul (Negative); Protein-Dipstick Negative (Negative); Specific Gravity, Urine 1.005 (1.002-1.030); Urine Bilirubin Dipstick Negative (Negative); Urine Clarity Sl. Cloudy (Clear); Urine Urobilinogen Normal (Normal)
[2019-12-07 11:35] LABS: Bacteria 1+ /hpf (None Seen); Squamous Epithelial Cells - UA 0-5 SEEN /hpf (5-10); White Blood Cells 0-5 SEEN /hpf (0-5)
--- NOTE | 2019-12-07 11:53 | ED.DEP ---
ED Disposition - Plan for ED Patient: Instructions: ED Headache Unspecified, ED Dizziness UKO, ED Chest Pain Atypical Unkn Cause Referrals: Care Physician,No Primary [Primary Care Provider] - Washington Cross MD [STAFF PHYSICIAN] - 3-5 Days
[2019-12-07 12:18] VITALS: BP 102/74; PULSE 72; RESP 16; O2SAT 98
--- NOTE | 2019-12-07 12:18 | ED.RN ---
THIS NURSE REVIEWED D/C INSTRUCTIONS WITH PT. PT VERBALIZED UNDERSTANDING OF INSTRUCTIONS. IV D/C. IV CATHETER INTACT. PT TOLERATED WELL. PT DENIES FURTHER NEEDS OR QUESTIONS AT THIS TIME. PT AMBULATES FROM ROOM ON OWN WITHOUT ASSISTANCE FROM STAFF
== END 2019-12-07 12:20 | disposition home or self-care (01) ==
PROVIDERS: Emergency Provider Emergency Medicine
DX: R42 Dizziness and giddiness (principal); R51 Headache; R07.89 Other chest pain; Z72.0 Tobacco use
CPT/HCPCS: 71045; 80048; 81001; 84703; 85025; 93005; 96361; 96374; 96375; 99284; J7030; A4216

== ENCOUNTER → 2020-11-29 10:32 | Outpatient (CLI) | payer MEDICAID, SELFPAY ==
[2020-11-29 12:08] LABS: hCG Titer Quant., Serum < 1 mIU/mL (1-3)
== END ==
PROVIDERS: Visit Provider Nurse Practitioner Women's Health
DX: N91.2 Amenorrhea, unspecified (principal)
CPT/HCPCS: 36415; 84702

== ENCOUNTER → 2021-03-02 10:08 | Outpatient (CLI) | payer MEDICAID, SELFPAY ==
[2021-03-02 10:59] LABS: hCG Titer Quant., Serum 21 mIU/mL (1-3)
== END ==
PROVIDERS: Referring Provider Obstetrics & Gynecology; Visit Provider Obstetrics & Gynecology
DX: N91.2 Amenorrhea, unspecified (principal)
CPT/HCPCS: 36415; 84702

== ENCOUNTER → 2021-03-04 10:49 | Outpatient (CLI) | payer MEDICAID, SELFPAY ==
[2021-03-04 11:33] LABS: hCG Titer Quant., Serum 73 mIU/mL (1-3)
== END ==
PROVIDERS: Referring Provider Obstetrics & Gynecology; Visit Provider Obstetrics & Gynecology
DX: N91.2 Amenorrhea, unspecified (principal)
CPT/HCPCS: 36415; 84702

== ENCOUNTER → 2021-03-31 | Outpatient (CLI) | payer MEDICAID, SELFPAY ==
[2021-03-31 13:41] LABS: Amphetamine Urine VISTA NEGATIVE (<1000 ng/mL); Barbiturate Urine VISTA NEGATIVE (< 200 ng/mL); Benzodiazepine Urine VISTA NEGATIVE (< 200 ng/mL); Cocaine Urine VISTA NEGATIVE (< 300 ng/mL); Ecstacy Urine VISTA NEGATIVE (< 500 ng/mL); Methadone Urine VISTA NEGATIVE (< 300 ng/mL); PCP Urine VISTA NEGATIVE (< 25 ng/mL); THC Urine VISTA NEGATIVE (< 50 ng/mL); Vista UDS pH Range 5
[2021-04-02 07:07] LABS: Chlamydia By Nucleic Acid AMP Negative (Negative)
[2021-04-02 08:07] LABS: Gonococcus By Nucleic Acid AMP Negative (Negative)
[2021-04-05 14:48] LABS: HPV Reflexed? NOT INDICATED
== END | disposition home or self-care (01) ==
LOC: LABSPEC 12:32
PROVIDERS: Visit Provider Obstetrics & Gynecology
DX: O09.90 Supervision of high risk pregnancy, unspecified, unspecified trimester (principal); Z3A.00 Weeks of gestation of pregnancy not specified
CPT/HCPCS: 80307; 87086; 87088; 87491; 87591; 88175; G0145

== ENCOUNTER → 2021-04-26 11:44 | Outpatient (CLI) | payer MEDICAID, SELFPAY ==
[2021-04-26 12:44] LABS: Absolute Neutrophil Count 7.9 X10^3/uL (2.0-7.7); Basophil# 0.02 X10^3/uL; Basophil% 0.2 % (0-1); Eosinophil# 0.28 X10^3/uL; Eosinophils% 2.7 % (0-5); Hematocrit 36.1 % (37-47); Hemoglobin 12.2 g/dL (12.0-15.0); Lymphocyte % 16.5 % (19-41); Mean Corp Hgb Conc 33.8 g/dL (32-36); Mean Corpuscular Hgb 30.9 pg (27.0-32.0); Mean Corpuscular Volume 91.4 fL (81-99); Mean Platelet Vol. 10.4 fl (6.2-12.0); Monocyte# 0.43 X10^3/uL; Monocyte% 4.2 % (0-10); NRBC Flagged by Analyzer 0 % (0-5); Neutrophil # 7.85 X10^3/uL (2.7-7.7); Platelet Count 330 K/mm3 (150-450); RBC Distribution Width CV 12.4 % (11.6-14.6); RBC Distribution Width SD 41.2 fl (35.1-43.9); Red Blood Count 3.95 M/mm3 (4.2-5.4); White Blood Count 10.3 K/mm3 (4.4-11.0)
[2021-04-26 12:59] LABS: NATERA MAILED SPECIMEN
[2021-04-26 13:01] LABS: Glucose Challenge Gest 1H 50g 111 mg/dL (70-140)
[2021-04-26 13:44] LABS: HIV - WCH Non-Reactive (Nonreactive); Hepatitis B Surface Antigen Non-Reactive (Nonreactive); Hepatitis C Antibody Non-Reactive (Nonreactive); Rubella IgG Reactive (Nonreactive); Syphilis Antibodies Non-reactive
== END ==
PROVIDERS: Referring Provider Obstetrics & Gynecology; Visit Provider Obstetrics & Gynecology
DX: O09.90 Supervision of high risk pregnancy, unspecified, unspecified trimester (principal); Z3A.00 Weeks of gestation of pregnancy not specified
CPT/HCPCS: 82950; 85025; 86703; 86762; 86780; 86803; 86850; 86900; 86901; 87340

== ENCOUNTER → 2021-05-12 | Outpatient (CLI) | payer MEDICAID, SELFPAY | END | disposition home or self-care (01) | LOC: LABSPEC 16:56 | PROVIDERS: Visit Provider Obstetrics & Gynecology | DX: O26.899 Other specified pregnancy related conditions, unspecified trimester (principal); R10.2 Pelvic and perineal pain; Z3A.00 Weeks of gestation of pregnancy not specified | CPT/HCPCS: 87086; 87088 ==

== ENCOUNTER 2021-06-20 08:30 | Outpatient (RCR) | payer MEDICAID, SELFPAY ==
--- NOTE | 2021-06-20 09:10 | BH.SGPN.GN ---
Behaviors/Verbalizations/Mental Status: [] Eye contact is good. Motor activity is appropriate. Appearance is casual. Speech is Appropriate. Mood is anxious. Affect is congruent. Thoughts are linear and logical. No evidence of psychosis. Reviewed daily check in sheet and no reports of suicidal ideations or intent Client Response/Progress/Benefit: [] Pt participated at times during group discussion on on connection between thoughts, feelings, and behaviors. Pt shared that today is her first day in IOP. Introduced her self and stated that she has been struggling with significant depression, isolation, crying spells, and irritability. States that she cries all the time. Discussed recent stressors and being 17 weeks . No progress noted as this was her first day in IOP. Beneifted from group support, encouragement, and feedback. Will continue in IOP to maintain safety, increase healthy coping, and improve functioning. Narrative Note: []
--- NOTE | 2021-06-20 09:15 | BH.COMM ---
Communication Note - Communication with Client Communication Note: Consultation with Dr. Awad with order to admit to IOP level of care with dx of MDD F33.2
--- NOTE | 2021-06-20 10:10 | BH.SGPN.GN ---
Behaviors/Verbalizations/Mental Status: []Eye contact is good. Motor activity is appropriate. Appearance is neat. Speech is Appropriate. Mood is anxious and depressed. Affect is constricted. Thoughts are linear and logical. No evidence of psychosis. Client Response/Progress/Benefit: []Pt was an active participant in group discussion AEB taking notes and providing input throughout. Attentive during psychoeducation reviewing internal and external obstacles and provided examples throughout. Participated in the reflection activity in which clients radha pictures depicting their current and desired reality and shared with the group. Pt shared in current reality she feels like she's stuck in a deep hole with water filling the hole and [place] all around her. Pt stated when depressed she pushes all her support away which results in her being lonely, feeling stuck and overwhelmed. Pt reported desired reality is to have the tools to manage life stressors, allow people in her life and feel enjoyment out of life. Benefited from group by increasing current awareness and expectations for progress. Pt to continue IOP to improve daily functioning, increase healthy coping and prevent decompensation.
--- NOTE | 2021-06-20 11:08 | BH.SGPN.GN ---
Behaviors/Verbalizations/Mental Status: []Client alert and oriented, casually dressed and groomed. Eye contact good. Motor activity appropriate. Speech within normal limits. Affect congruent, mood anxious and depressed. Thoughts linear, logical, no signs of hallucinations or delusions. Client Response/Progress/Benefit: []Client first day in IOP program, reports being anxious but did well to adjust to group environment. Client was engaged during activity AEB taking on an active participant role as well as providing group with some ideas on how to cope with internal barriers that keep clients stuck from moving towards goals. Client able to identify own personal barriers to her desired reality, which included: insecurities/comparing herself to others, lack of motivation, unrealistic expectations for herself, isolation, and negative self-talk. Client reports wanting to work on reducing self-comparison by practicing reframing negative thoughts and working on focusing on her own personal positives. Reports this will aid in further improving self-esteem. Benefited from group by identifying personal obstacles and potential solutions to desired reality. Client will continue IOP tx to improve insight and ability to cope with anxiety and depression, increase healthy coping repertoire, as well as prevent decompensation. Narrative Note: []
--- NOTE | 2021-06-21 09:05 | BH.SGPN.GN ---
Behaviors/Verbalizations/Mental Status: [] Eye contact is good. Motor activity is appropriate. Appearance is disheveled. Speech is Appropriate. Mood is depressed. Affect is flat. Thoughts are linear and logical. No evidence of psychosis. Reviewed daily check in sheet and no reports of suicidal ideations or intent. Client Response/Progress/Benefit: [] Pt was an active participant in group discussion. Attentive. Provided appropriate feedback. Emotion for today is frustrated. Shared feel like I don't know what I'm doing... All I do is think and its always negative. Isolating. Was able to identify mental health wins which included increased self-care which did seem to benefit mental health. Group provided feedback on the importance on self-care and challenged common misconceptions that it is selfish which was beneficial. Limited progress noted per pt. Reports that she does benefit from group support and feeling like she is not alone. Will continue in IOP to maintain safety, increase health coping skills, and to stabilize mood. Narrative Note: []
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
[2021-06-21 12:01] VITALS: BP 146/89; PULSE 108
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
--- NOTE | 2021-06-21 12:34 | BH.DR.ITP ---
Initial Treatment Plan Patient Information Visit Information: ADMISSION DATE: EXPECTED LOS: 4-6 weeks Problems/Symptoms Problem #1:: Depression Symptom:: Sadness, crying, anhedonia, biological disruption of sleep, low energy, decreased concentration, guilt, passive thoughts of Problem #2:: Anxiety Symptom:: Worry, rumination, panic attacks, nightmares, flashbacks, avoidance
--- NOTE | 2021-06-22 09:10 | BH.SGPN.GN ---
Behaviors/Verbalizations/Mental Status: [] Eye contact is good. Motor activity is appropriate. Appearance is neat. Speech is Appropriate. Mood is depressed. Affect is flat. Thoughts are linear and logical. No evidence of psychosis. Reviewed daily check in sheet and no reports of suicidal ideations or intent. Client Response/Progress/Benefit: [] Pt was an active participant in group discussion. Attentive. Provided appropriate feedback. Mental health wins included spending quality time with her kids. Reports that her mood is stabilizing with less erratic swings. Feels that she is less frustrated and angry. Utilizing new skills to help manage anger such as stepping back and reframing thoughts. Has also seen the benefits of self-care and time spent for herself which if done consistently decreases her stress. Stressor is that her mother disclosed to her that her step-father has cancer and that it may be terminal. Tearful as step-father has been very important in her life. Her mother asked her to not disclose to step-father that she is aware which is causing anxiety as pt has to see him tomorrow. I don't know how I won't cry or break down when I see him. Overall progress noted per pt report. Benefited from group support, encouragement, and feedback. Will continue in IOP to maintain safety, increase healthy coping, and stabilize mood. Narrative Note: []
--- NOTE | 2021-06-22 10:15 | BH.SGPN.GN ---
Behaviors/Verbalizations/Mental Status: []Client alert and oriented, casually dressed and groomed. Eye contact good. Motor activity appropriate. Speech within normal limits. Affect constricted, mood anxious. Thoughts linear, logical, no signs of hallucinations or delusions. Client Response/Progress/Benefit: []Client engaged during session AEB client contributing thoughts throughout discussion and completing worksheet. Connected with discussion on crisis and how coping with external crises by using unhealthy coping skills could result in a personal crisis. Group reflected on the importance of having awareness of personal warning signs in order to prevent reaching crisis point. Group identified potential warning signs for crisis and client completed the personal warning signs worksheet. Client identified personal crisis warning signs to include: isolation, lack of motivation to do chores, lashing out and shutting down. Client benefited by increasing awareness of what leads to crisis and personal warning signs. Client will continue IOP to increase healthy coping skills, improve daily functioning, increase positive thinking and prevent decompensation.
--- NOTE | 2021-06-22 11:15 | BH.SGPN.GN ---
Behaviors/Verbalizations/Mental Status: []Client alert and oriented, casually dressed and groomed. Eye contact good. Motor activity appropriate. Speech within normal limits. Affect congruent, mood anxious. Thoughts linear, logical, no signs of hallucinations or delusions Client Response/Progress/Benefit: []Client responded well to session as evidenced by client listening attentively to others and providing strategies during discussion. Client identified warning signs for crisis and gained further awareness of earliest warning signs. Client created a crisis action plan to help client better manage warning signs for crisis. Client?s action plan for isolation, lack of motivation to do chores, lashing out and shutting down included coping skills such as: calling a friend, making small to do list, clean room by room, belly breathing, and change environment. Client appeared to benefit from creating a crisis action plan and increasing self-awareness. Client to continue IOP tx to improve daily functioning, increase emotion regulation, increase healthy coping skills and prevent decompensation.
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
--- NOTE | 2021-06-22 14:50 | BH.MTP ---
Master Treatment Plan - Patient Information Program Physician:: Dr. Awad Primary Therapist:: Carol Swartz, [facility] - Psychiatric Diagnoses Psychiatric Diagnoses:: 1. Major depressive disorder, recurrent, severe without psychosis. 2. PTSD. 3. History of polysubstance abuse disorder in full remission since age 18. 4. Alcohol use disorder in full remission for 6 months. 5. Nicotine dependence. 6. Primary support and work issues Diagnosis Code(s):: F33.2 - Estimated LOS Estimated LOS (in weeks):: 6 Problem/Goal #1 - Problem/Goal #1 Stated Goal:: Client will reduce depression and worthlessness due to Major Depressive Disorder through IOP Services. Description of Barriers: Pt's low self-esteem, negative thought patterns, limited social support, low motivation, apathy, and difficulty following through with goals could be barriers to treatment. Functional Impact: Pt has hx of depression and anxiety. Endorses feelings of depression with crying spells, irritability, mildly hopeless, feelings of worthlessness, anhedonia, low energy, low motivation, and poor concentration. Pt reports panic attacks 1-5 days per week. Pt?s mental health symptoms impacting relationship with boyfriend due to increased irritability which has caused more conflict. 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 - Objectives Objective #1 Stated Objective: Client will learn and utilize 2-3 healthy coping strategies to manage depressive symptoms. Interventions: Group and individual therapy will utilize CBT techniques to assist client with understanding the connection between thoughts, feelings and behaviors. Education will be provided on behavioral activation. Therapist will assist client in learning internal coping strategies to manage depressive symptoms, along with helping client identify triggers. Discharge Criteria: Client will have achieved this goal when can verbalize and practiced at least 2 healthy coping strategies that successfully manage depressive symptoms. Target Date: 08/01/21 Review Date: 07/18/21 Objective #2 Stated Objective: Pt will decrease depressive symptoms AEB pt?s score on the DSM 5 cross-cutting measure and improve pt?s daily functioning. Interventions: Through groups and individual therapy, pt will be provided with education on cognitive distortions, mistaken beliefs, and identifying and combating negative self-talk. Therapist will assist pt with getting back into the activities she once enjoyed as well as increasing healthy coping strategies. Discharge Criteria: Pt will have met this goal when pt?s score on the DSM 5 cross cutting measure for depression has been decreased and per pt?s report daily functioning has improved. Target Date: 08/01/21 Review Date: 07/18/21 Problem/Goal #2 - Problem/Goal #2 Stated Goal:: Client will reduce overall frequency, intensity, and duration of anxiety to improve functioning. Description of Barriers: Pt's low self-esteem, negative thought patterns, limited social support, low motivation, apathy, and difficulty following through with goals could be barriers to treatment. Functional Impact: Pt has hx of depression and anxiety. Endorses feelings of depression with crying spells, irritability, mildly hopeless, feelings of worthlessness, anhedonia, low energy, low motivation, and poor concentration. Pt reports panic attacks 1-5 days per week. Pt?s mental health symptoms impacting relationship with boyfriend due to increased irritability which has caused more conflict. 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 - Objectives Objective #1 Stated Objective: Client will learn and implement 2-3 calming skills to reduce overall anxiety and manage anxiety. Interventions: Group and individual therapy will help client increase awareness of anxiety triggers and educate client on the ways anxiety impacts overall health. Therapist will teach client various calming and mindfulness strategies to promote emotional regulation and reduction of anxiety. Therapist will encourage client to implement healthy coping skills on a regular basis. Discharge Criteria: Client will have met this goal when reports consistent utilization of at least 2 calming skills that successfully manage anxious symptoms. Target Date: 08/01/21 Review Date: 07/18/21 Objective #2 Stated Objective: Pt will decrease anxious symptoms AEB pt?s score on the DSM 5 cross-cutting measure improve pt?s daily functioning. Interventions: Through groups and individual therapy, pt will be provided education about anxiety?s impact on body and common physiological reaction to anxiety. Therapist will teach pt appropriate breathing techniques and build healthy coping skills to manage daily anxieties. Discharge Criteria: Pt will have met this goal when pt?s score on the DSM 5 cross cutting measure for anxiety has been decreased and per pt?s report daily functioning has improved. Target Date: 08/01/21 Review Date: 07/18/21
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
--- NOTE | 2021-06-26 09:00 | BH.SGPN.GN ---
Behaviors/Verbalizations/Mental Status: []Eye contact is good. Motor activity is appropriate. Appearance is casual. Speech is appropriate. Mood is anxious. Affect is congruent. Thoughts are linear and logical. No evidence of psychosis. Reviewed daily symptom tracker sheet with no reports of suicidal ideations, plan, or intent. Client Response/Progress/Benefit: []Client was engaged throughout group session. Client reported her emotion as ?hopeful?. Client discussed noticing small changes in herself since starting the program. Client reported working on housework, and that her daughter refused to clean her room, which caused her to feel frustrated. Client was able to talk with her significant other about her frustration, which helped her feel better. Client stated that she feels like she is ?letting hewitt down? with her significant other, and that their communication has improved. Client discussed her ultrasound appointment, which made her nervous for what is to come. Client appeared to benefit from group discussion of self care. Progress noted AEB client reporting improved communication with significant other. Will continue IOP treatment to increase application of self care and increase anxiety management skills. Narrative Note: []
--- NOTE | 2021-06-26 10:05 | BH.SGPN.GN ---
Behaviors/Verbalizations/Mental Status: []Client alert and oriented, casually dressed and groomed. Eye contact good. Motor activity appropriate. Speech within normal limits. Affect constricted, mood depressed. Thoughts linear, logical, no signs of hallucinations or delusions. Client Response/Progress/Benefit: []Pt was an engaged participant AEB pt listening attentively to others and providing input throughout. Attentive during psychoeducation on communication styles. Assisted group with identifying benefits of effective communication on mental health which included: getting needs met, improves relationships, maintains boundaries, and prevents additional conflict. Pt identified she most often uses passive-aggressive and aggressive communication styles. Pt stated her styles of communication she learned from her upbringing and she doesn't know how else to get her boyfriends attention. Benefited from increased awareness of different communication barriers, styles, and the importance of communicating effectively to improve mental wellness. Will continue IOP tx to improve emotion regulation, increase healthy coping and prevent decompensation.
--- NOTE | 2021-06-26 11:05 | BH.SGPN.GN ---
Behaviors/Verbalizations/Mental Status: []Client alert and oriented, casually dressed and groomed. Eye contact good. Motor activity appropriate. Speech within normal limits. Affect constricted, mood dysthymic. Thoughts linear, logical, no signs of hallucinations or delusions. Client Response/Progress/Benefit: []Pt was an active participant in group discussion. Attentive during psychoeducation on communication styles (Passive, Passive-Aggressive, Aggressive, and Assertive) and benefits/disadvantages to each style. Pt reflected on how her passive-aggressive and aggressive communication styles have impacted her mental health and relationships. Participated in the group activity and learned DEAR MAN skill. Pt reports wanting to work on the mindfulness component of this skill by focusing on one issue at a time and not getting side-tracked. Benefited from learning DEAR MAN and setting a goal to improve communication. Will continue IOP tx to prevent decompensation, increase self-awareness, and improve mood stability. Narrative Note: []
== END 2021-06-26 23:59 | disposition home or self-care (01) ==
LOC: BHIOP 08:30
PROVIDERS: Visit Provider Psychiatry & Neurology Psychiatry
DX: F33.2 Major depressive disorder, recurrent severe without psychotic features (principal); F43.10 Post-traumatic stress disorder, unspecified; Z72.89 Other problems related to lifestyle; F17.210 Nicotine dependence, cigarettes, uncomplicated; Z79.899 Other long term (current) drug therapy
CPT/HCPCS: 90792; H2012; H2020; T1002

== ENCOUNTER 2021-06-27 07:31 | Outpatient (RCR) | payer MEDICAID, SELFPAY ==
[2021-06-27 00:50] VITALS: BP 146/89; PULSE 108
--- NOTE | 2021-06-27 09:00 | BH.SGPN.GN ---
Behaviors/Verbalizations/Mental Status: []Eye contact is good. Motor activity is appropriate. Appearance is casual. Speech is Appropriate. Mood is anxious. Affect is congruent. Thoughts are linear and logical. No evidence of psychosis. Reviewed daily check in sheet and no reports of suicidal ideations or intent. Client Response/Progress/Benefit: []Pt was an active participant in group discussion. Attentive. Provided appropriate feedback. Pt identified she was stressed yesterday when her family wanted her to make the decision for dinner. Pt stated this decision makes her anxious because her daughter becomes easily upset when doesn't like the food options. Pt reported she did ask for help from her boyfriend to manage the stress. Pt stated mental health positive as engaging in self-care by having boyfriend watch the kids while she took a bath. Pt stated additional mental health win as getting some of the dishes done. Identified current stressor as not knowing the state of her house when she gets home. Benefited from group support and encouragement. Pt to continue IOP to increase self-care, increase healthy coping skills and prevent decompensation. Narrative Note: []
--- NOTE | 2021-06-27 10:07 | BH.SGPN.GN ---
Behaviors/Verbalizations/Mental Status: [] Client alert and oriented, casually dressed and groomed. Eye contact good. Motor activity appropriate. Speech within normal limits, quiet. Affect constricted, mood anxious and depressed. Thoughts linear, logical, no signs of hallucinations or delusions. Client Response/Progress/Benefit: [] Pt continues to appear anxious about being in the group setting, however is displaying progress with increased engagement. Pt was taking notes, listening attentively, and providing some input when prompted throughout. Attentive during psychoeducation and discussed the importance of goal-setting with the group. Pt indicated ?Goals cause you to have to step outside your comfort zone?. Group identified potential benefits of having goals to include: they motivate, increase self-esteem, provide a sense of accomplishment, help feel more positive, lead to personal growth, and provide a sense of purpose. Group also worked together to identify barriers to goal-setting which included; negative self-talk, lack of motivation, fear of failure, unrealistic expectation, and past negative experiences. Pt identified personal barrier to include lack of motivation and self-doubt. Benefited from increased awareness of benefits and barriers to goal-setting. Pt will continue in IOP to prevent decompensation, increase self-care and mood management, as well as further improve daily functioning. Narrative Note: []
--- NOTE | 2021-06-27 11:13 | BH.SGPN.GN ---
Behaviors/Verbalizations/Mental Status:[] Client alert, oriented, casually dressed and groomed. Eye contact good. Motor activity appropriate. Speech within normal limits. Affect constricted, mood depressed and anxious. Thoughts linear, logical, no signs of hallucinations or delusions. Client Response/Progress/Benefit: [] Pt was a active participant in group discussions and activities. Engaged in activity. Was willing to complete the goal setting worksheet provided. Pt identified a SMART goal for the next week is: Take 10 minutes for self-care each night before bed daily for the next week. Pt reported this would benefit her by improving self-esteem, feeling less exhausted, and improve her thinking patterns. Identified her children?s needs/schedules and lack of motivation as potential barriers. Pt able to identify several solutions that can help overcome identified barriers such as: thought challenging, using her significant other for accountability, and opposite action. Benefited from group by being able to utilize SMART formula to create a goal. Pt to continue IOP to stabilize moods, increase healthy coping skills and self-care, challenge negative core beliefs, and prevent decompensation. Narrative Note: []
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
--- NOTE | 2021-06-28 10:10 | BH.SGPN.GN ---
Behaviors/Verbalizations/Mental Status: []Eye contact is good. Motor activity is appropriate. Appearance is casual. Speech is Appropriate. Mood is dysthymic. Affect is constricted. Thoughts are linear and logical. No evidence of psychosis. Client Response/Progress/Benefit: []Engaged in experiential activity with peers. Attentive during psychoeducation on what is social support, the benefits of social support, and the things that keep us from utilizing social support for mental wellness. Attentive during interaction discussion and feedback from peers on these subjects AEB head nodding and note-taking. Pt identified social support can provide a healthy distraction at times. Able to see connection between experiential activity and group topic. Benefited from increased awareness of the benefits of social support in maintain mental health. Will continue in IOP to continue use of healthy coping skills, challenge negative thinking, continue use of behavioral activation to decrease depressive symptoms and prevent decompensation. Narrative Note: []
--- NOTE | 2021-06-28 11:10 | BH.SGPN.GN ---
Behaviors/Verbalizations/Mental Status: []Client alert and oriented, casually dressed and groomed. Eye contact good. Motor activity appropriate. Speech within normal limits. Affect congruent, mood euthymic. Thoughts linear, logical, no signs of hallucinations or delusions. Client Response/Progress/Benefit: []Client was an active participant throughout AEB contributing to discussion, providing personal examples, and taking notes. Client did well to relate group topic and activity back to own experiences. Client provided input during discussion on the types of support our supports can provide. Client reports wanting to work on increasing social supports, noting this will help improve motivation, reduce isolation, and help client feel more connected to life. Client plans to improve this support area by scheduling a date night with her boyfriend once a month and reaching out to other moms to schedule play dates. Client seemed to benefit from identifying the type of support and how this support will aid in promoting overall mental wellness. Will continue IOP tx to prevent decompensation, improve emotional regulation skills, and improve functioning. Narrative Note: []
--- NOTE | 2021-06-28 11:47 | PCM.BH.PN_ITS ---
Progress Note Progress Note: History of Present Illness/Interim History: [] The patient is a 26-year-old single female who is seen in follow-up at the [facility] behavioral health IOP program. She is 20 weeks intrauterine and is being treated for depression, anxiety and PTSD. She has a history of polysubstance abuse disorder but has been sober from all drugs and alcohol for over 6 months now. I last saw the patient 1 week ago and at that time we started Effexor XR 37.5 mg. She has been taking the medication for 6 days now and is tolerating it well except she has noticed some mild nausea. She is taking it with dinner. She had an ultrasound in her infant is already engaged and she feels this may have started some mild uterine cramping. No vaginal bleeding. Patient remains somewhat depressed but states that after taking Effexor for 1 week she feels she is having less crying spells now. She is still having panic attacks but now only once a week. She denies any passive thoughts of . She denies suicidal or homicidal ideation. She denies feeling hopeless now. She denies hallucinations, delusions or symptoms of nina. Current Psychiatric Medications: [] Effexor XR 37.5 mg daily (x6 days). Vistaril up to 3 times a day but does not take it often. Mental Status Examination: [] The patient is a 26-year-old female with a 5-month intrauterine which is consistent with her appearance. She is casually dressed and groomed with good hygiene. She has no psychomotor agitation or retardation. Eye contact is good and speech is normal rate and rhythm and fluent with no pressure. Mood is depressed. Affect is constricted to full at times. Thought process is goal-directed and organized. Thought content: There is no evidence of passive thoughts of , suicidal ideation, homicidal ideation, delusions or hallucinations. She is mildly worried about her but not inordinately so. Reality testing is intact. Judgment is intact. Insight is fair. Impulsivity is moderate. Diagnoses: [] 1. Major depressive disorder, recurrent, severe without psychosis 2. PTSD 3. History of polysubstance abuse disorder in full remission since age 18 4. Alcohol use disorder in full remission for 6 months 5. Nicotine dependence Plan: [] The patient will continue the IOP program at [facility] as the structure, support, education and group therapy will hopefully prevent worsening of the patient's symptoms which might require hospitalization. She felt safe during the interview but if it anytime she does not feel safe she will let us know or go to the emergency room. The risks, options, possible complications and side effects of the medications including in and breast-feeding were again discussed with the patient and she understands and accepts these. She understands that she should continue to try to eliminate smoking cigarettes. She agrees to stay sober from all drugs. She will continue the Effexor and does not wish to increase the dose of Effexor because in the past when any dose was increased she started to feel like a zombie. So no medication changes were made today. The patient will continue to follow-up with her outpatient providers and I will see the patient in follow-up in 2 to 3 weeks or as needed.
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
--- NOTE | 2021-07-03 09:00 | BH.SGPN.GN ---
Behaviors/Verbalizations/Mental Status: []Eye contact is good. Motor activity is appropriate. Appearance is casual. Speech is appropriate. Mood is euthymic. Affect is congruent. Thoughts are linear and logical. No evidence of psychosis. Reviewed daily symptom tracker sheet with no reports of suicidal ideations, plan, or intent. Client Response/Progress/Benefit: []Client was engaged throughout group session, sharing and listening attentively to others. Client reported her emotion as ?optimistic and happy?. Discussed that she spent a lot of time with her children this weekend and was able to step back when she felt frustrated and communicate calmly with her children. Client stated that her daughter opened up to her, something that usually does not happen. Reports that her house is ?less hectic? than it had been. Appeared to benefit from supportive group environment and reflecting on skills used. Client set a goal to spend more quality time with her family this week. Progress noted AEB client report of taking a step back to allow for healthier communication with her children. Will continue IOP treatment to continue increasing emotion regulation and healthy communication skills to improve functioning. Narrative Note: []
--- NOTE | 2021-07-03 10:00 | BH.SGPN.GN ---
Behaviors/Verbalizations/Mental Status: []Eye contact is fair. Motor activity is appropriate. Appearance is casual and grooming tended to. Speech is Appropriate. Mood is dysthymic. Affect is constricted. Thoughts are linear and logical. No evidence of psychosis Client Response/Progress/Benefit: []Pt was an engaged participant AEB providing input at times during group discussion and was attentive to others comments. Pt appeared attentive AEB taking notes during psychoeducation about cognitive distortions. Pt seemed to benefit from increased awareness of cognitive distortions and the role that they play on our behaviors and emotions. Shared top three personal distortions uses the most includes: overgeneralization, personalization, and jumping to conclusions. Will continue IOP tx to increase healthy coping, improve self-confidence and prevent decompensation. Narrative Note: []
--- NOTE | 2021-07-03 10:44 | BH.COMM ---
Communication Note - Communication with Client Communication Note: Pt reported medication side effects of vomiting to IOP staff this morning. Pt has tried taking medication with food and at night and still has side effects. This therapist spoke with IOP nurse and it was recommended that pt stop her Effexor at this time. Pt will continue taking Visatril prn. Pt unable to come Saturday to see psychiatry due to issues with childcare. Suggested telehealth and pt was receptive to this. Therapist will schedule a time for pt to see psychiatry virtually on Saturday07/05/21.
--- NOTE | 2021-07-03 11:15 | BH.SGPN.GN ---
Behaviors/Verbalizations/Mental Status: []Client alert and oriented, casually dressed and groomed. Eye contact good. Motor activity appropriate. Speech within normal limits. Affect congruent, mood euthymic. Thoughts linear, logical, no signs of hallucinations or delusions. Client Response/Progress/Benefit: []Pt active throughout session. Pt was an actively engaged participant in Cognitive Distortions Jeopardy and utilized notes from psychoeducation on cognitive distortions to assist peers in correctly answering questions. Experiential activity was beneficial as it provided a way for pt to review notes and handouts during psychoeducation to answer questions for the game. Pt reflected on today?s topic and wrote that ?no matter which cognitive distortions you have you can challenge it in different ways? was her biggest take away from session. Pt was given a thought log to complete for homework. Will continue in [facility] tx to improve emotional regulation skills to improve functioning and relationships. Narrative Note: []
--- NOTE | 2021-07-04 09:05 | BH.SGPN.GN ---
Behaviors/Verbalizations/Mental Status: [] Eye contact is good. Motor activity is appropriate. Appearance is casual. Speech is Appropriate. Mood is euthymic. Affect is full. Thoughts are linear and logical. No evidence of psychosis. Reviewed daily check in sheet and no reports of suicidal ideations or intent. Client Response/Progress/Benefit: [] Pt was an active participant in group discussion. Attentive. Provided appropriate feedback. Emotion for today is happy. Mental health win includes managing her emotions at home more effectively. She shared some events that in the past would have led to overwhelming thoughts, distress, and possible outbursts however currently utilizing skills and able to manage. Asking for help from support continues to utilize self-care which have both been helpful. I'm not lashing out or holding things in. Progress noted per pt report. Benefited from group support, encouragement, and feedback. Will continue in IOP to prevent decompensation, stabilize mood, and maintain safety. Narrative Note: []
--- NOTE | 2021-07-04 10:00 | BH.SGPN.GN ---
Behaviors/Verbalizations/Mental Status: [] Eye contact is good. Motor activity is appropriate. Appearance is casual. Speech is Appropriate. Mood is dysthymic. Mood is congruent. Thoughts are linear and logical. No evidence of psychosis. Client Response/Progress/Benefit: []Pt was an engaged participant AEB pt attentively listening to others and added contributions at times to discussion.Pt was an active participant in group discussion and activity. Attentive during psychoeducation. Pt participated in group discussion in which group defined fixed mindset and provided insight on how a fixed mindset could impact mental health and result in. Engaged in group discussion about growth mindset, helping group identify impact grown mindset can have on mental health. Pt shared his fixed mindset thoughts include: I'm a mistake and no one will ever love me. Pt reported these fixed thoughts contribute to her fearing judgement and avoid challenges. Benefited from increased awareness on the role of fixed mindset on mental health. Will continue in IOP to improve self confidence, improve daily functioning and prevent decompensation.
--- NOTE | 2021-07-04 11:05 | BH.SGPN.GN ---
Behaviors/Verbalizations/Mental Status: []Client alert and oriented, casually dressed and groomed. Eye contact good. Motor activity appropriate. Speech within normal limits. Affect congruent, mood euthymic. Thoughts linear, logical, no signs of hallucinations or delusions. Client Response/Progress/Benefit: []Client engaged during activity and discussion. Client worked in small group to apply skills learned to reframe own personal fixed thoughts. Appeared to benefit from suggestions provided by peers and from providing ideas to peers in return. Client identified fixed thoughts including ?I?m a mistake? and ?I will never be successful.? Client practiced reframing these fixed thoughts using growth-mindset strategies and identifying the distortions. Reframed her thoughts and shared ?my mistakes don?t define me, and someone else?s opinion doesn?t have to define me.? Benefitted from discussing benefits of growth mindset and brainstorming strategies for prompting growth-mindset. Will continue IOP tx to combat distortions, improve emotional regulation skills, and increase self-care. Narrative Note: []
--- NOTE | 2021-07-05 11:46 | BH.COMM_ITS ---
Communication Note - Communication with Client Communication Note: Called and spoke with client at this time. Discussed that client's intolerance of Effexor was discussed with Dr. Awad and Lexapro 5mg daily was ordered instead and sent to [facility] in [place]. Client voices understanding of same and denies questions.
--- NOTE | 2021-07-06 09:05 | BH.SGPN.GN ---
Behaviors/Verbalizations/Mental Status: [] Eye contact is good. Motor activity is appropriate. Appearance is casual. Speech is Appropriate. Mood is euthymic. Affect is full. Thoughts are linear and logical. No evidence of psychosis. Reviewed daily check in sheet and no reports of suicidal ideations or intent. Client Response/Progress/Benefit: [] Pt was an active participant in group discussion. Attentive. Provided feedback when appropriate. Emotion for today is hopeful. Mental health wins included spending quality time with her children, reaching out to support, and spending time with support. She is more engaged in self-care throughout the day which is improving her relationships and decreased anger/stress. He check in was very short however mostly positive. Learning both internal and external coping skills. Benefited from group support, encouragement, and feedback. Will continue in IOP to maintain safety, prevent decompensation, and increase functioning. Narrative Note: []
--- NOTE | 2021-07-06 10:00 | BH.SGPN.GN ---
Behaviors/Verbalizations/Mental Status: Client alert and oriented, casually dressed and groomed. Eye contact good. Motor activity appropriate. Speech within normal limits. Affect congruent, mood euthymic. Thoughts linear, logical, no signs of hallucinations or delusions. Client Response/Progress/Benefit: []Client responded well to group session AEB taking notes and listening attentively to others. Group members worked together to define and provide personal examples of pitfalls. Client was a passive participant in discussion, taking notes and nodding throughout. Client participated in experiential activity, voicing her needs and aiding others in problem solving. Client appeared to benefit from increased knowledge of pitfalls and how they affect mental health. Will continue IOP treatment to continue improving application of anxiety management skills and increase boundary setting to improve daily functioning. Narrative Note: []
--- NOTE | 2021-07-06 15:07 | BH.MDN ---
Multi-Disciplinary Note - Note 30-min Individual Time Started:: 11:40 Date: 07/06/21 Purpose of session/treatment goals addressed:: Purpose of session was to address goals 1 and 2 from MTP. Eye Contact:: Good Motor Activity:: Appropriate Appearance:: Casual Speech:: Appropriate Mood:: Euthymic, Anxious Affect:: Congruent Thoughts:: Linear, Logical, No evidence of hallucinations/delusions noted Staff Interventions:: thought challenging, CBT techniques, rapport building, strengths perspective, goal setting Client Response:: Pt reported she did not complete goal from last session of identifying daily wins, however she did notice she put forth more effort to be more positive. Pt stated over the weekend she changed her approach with her daughter of talking to her daughter when she is not listening versus yelling right away. Pt reported her daughter seemed to respond well to this change in approach. Pt reported she continues to struggle with getting things done around her house. pt stated she has made a list of what needs completed but is having a hard time getting started on the list. Pt reported this weekend she might have two days without her kids so she plans to spend that time cleaning her house. Pt worked with therapist to identify strategies to help her follow through with goal. Pt stated asking her boyfriend to keep her accountable as being the most helpful strategy. Pt identified for self-care she will take a quiet bath and allow herself to sleep in. Pt reported she will continue goal she had set last week of identifying things she does get done. pt stated she thinks this will help improve confidence and challenge her typical focus on the negatives. Risks/Concerns:: Pt denies suicidal ideation, plan or intention to date. Future focused. Progress Toward Goals/Plan:: Progress noted with pt reporting being able to see more positives throughout her day. Pt stated she has always went straight to the negative and now is putting forth more effort to look at the positives. Progress noted with pt changing her parenting approach with her daughter by trying to listen versus going straight to yelling. Pt continuing to struggle with following through on her household chore goals. Pt knows what she needs to do but can't get started on the tasks. Pt to continue IOP to increase self-care, improve follow through on goals, improve daily functioning and prevent decompensation. Time Stopped:: 12:15
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
--- NOTE | 2021-07-10 10:08 | BH.SGPN.GN ---
Behaviors/Verbalizations/Mental Status: Client alert and oriented, casually dressed and groomed. Eye contact good. Motor activity appropriate. Speech within normal limits. Affect flat, mood euthymic. Thoughts linear, logical, no signs of hallucinations or delusions. [] Client Response/Progress/Benefit: [] Client responded well to session AEB listening attentively to others. Client participated in experiential activity illustrating resilience, providing feedback throughout. Client was a passive participant throughout group processing of the activity, discussion of where resilience comes from, its benefits and the barriers to building resilience. Client nodded and took notes throughout group session. Clinician provided psychoeducation on ten strategies to increase resilience. Appeared to benefit from increased knowledge of strategies to build resilience. Will continue IOP treatment to increase application of healthy coping skills to prevent decompensation. Narrative Note: []
--- NOTE | 2021-07-10 11:07 | BH.SGPN.GN ---
Behaviors/Verbalizations/Mental Status: []Client alert and oriented, casually dressed and grooming appearing disheveled. Eye contact avoidant. Motor activity appropriate. Speech within normal limits, limited input provided. Affect constricted, mood depressed and irritable. Thoughts linear, logical, no signs of hallucinations or delusions Client Response/Progress/Benefit: []Client receptive to session, though struggle to actively engaged and often appeared distracted by her own thoughts. Limited input provided, thought willing to complete the resilience worksheet provided. Client listened when prompted during the discussion of how each resiliency component can help increase personal resiliency. Client identified doing well with the resilience components of: nurture a positive view of self and take care of yourself. Went on to reflect wanting to improve in the personal resilience component of ?move toward your goals?. Client stated she wants to work on this by setting more realistic goals as well as breaking them down into small steps. Client seemed to benefit from discussing strategies for improving personal resilience. Will continue IOP tx to prevent decompensation, continue to promote application of healthy coping skills, and further improve self-care. Narrative Note: []
--- NOTE | 2021-07-11 09:10 | BH.SGPN.GN ---
Behaviors/Verbalizations/Mental Status: [] Eye contact is good. Motor activity is appropriate. Appearance is casual. Speech is Appropriate. Mood is depressed. Affect is flat. Thoughts are linear and logical. No evidence of psychosis. Reviewed daily check in sheet and no reports of suicidal ideations or intent. Client Response/Progress/Benefit: [] Pt was an active participant in group discussion. Attentive. Provided appropriate feedback. Emotion for today is nervous. Daily symptom tracker notes 2/5 for depression and 1/5 for anxiety and irritability. Mental health wins include continuing with self-care and coping skills while managing recent stressor. I have reverted back to old behaviors. Shared with the group her recent stressor involving her daughter and her daughter's father (who has been estranged for several years). Shared how this is impacting her mental health and her concerns. She asked the group for feedback on the stressor. She feels pressure to make the right decisions. Group encouraged her to consult and seek some guidance from healthy support. Group also encouraged communication and not keeping secrets from others. Group also shared that it may be an unrealistic demand to expect oneself to make the right decision every time. Sometimes we can change our minds and decisions when new information is presented. She responded well to feedback which was beneficial. Progress noted. Will continue in IOP to improve functioning, increase healthy coping, and stabilize mood. Narrative Note: []
--- NOTE | 2021-07-11 10:15 | BH.SGPN.GN ---
Behaviors/Verbalizations/Mental Status: []Client alert and oriented, casually dressed and fairly groomed. Eye contact fair. Motor activity appropriate. Speech within normal limits. Affect constricted, mood anxious. Thoughts linear, logical, no signs of hallucinations or delusions Client Response/Progress/Benefit: []Client was an engaged participant AEB providing input to discussion and taking notes throughout. Connected with group topic of perspective and the impacts of one?s perspective on mental health. Client worked with the group to identify impact of a negative perspective. Client appeared to benefit from increasing understanding of mental health benefits of a positive perspective. Client stated she is working on having a more positive perspective towards life despite the numerous stressors in her life. Client reported her kids help keep her hopeful, looking at bad moments/good moments vs bad day/good day, and reminding self she is doing the best she can. Will continue IOP tx to improve communication skills, increase self-care, and prevent decompensation.
--- NOTE | 2021-07-11 15:43 | BH.MDN_ITS ---
Multi-Disciplinary Note - Note 45-min Individual Time Started:: 11:45 Date: 07/11/21 Purpose of session/treatment goals addressed:: Purpose of session was to address goal 1 from MTP. Eye Contact:: Fair Motor Activity:: Appropriate Appearance:: Casual Speech:: Appropriate Mood:: Anxious Affect:: Congruent Thoughts:: Linear, Logical, No evidence of hallucinations/delusions noted Staff Interventions:: psychoeducation on: - healthy communication and rela tionships, CBT techniques, strengths perspective, goal setting Client Response:: Pt reported she had a difficult weekend. Pt stated she got into a fight with her boyfriend because she found out he was messaging several women behind pt's back. Pt reported her boyfriend had agreed to not talk with other women while pt was getting help trying to improve confidence and work th rough trust issues. Pt stated her boyfriend showed her the text messages and allowed her to reach out to all the women to shut the conversations down. Pt reported her boyfriend was very angry with her initially and wouldn't let her wait until he was off work on Saturday to talk about the situation. pt stated she told her boyfriend that he needs to get help with being able to manage his anger before their child is born. Pt stated she realizes they need to work on improving communication and be in a healthy place before their child is born. Pt reported she was proud of herself for not immediately blowing up when she say the messages from the other women. Pt stated in the past she would have started freaking out on her boyfriend. Pt reported she is making effort to improve the way she handles situations but recognizes if he doesn't work on his reactions then things between them won't go well. Pt reported additional stressor as her daughter's biological father reaching out this weekend asking to be involved in his daughter's life. Pt stated it seems that he has made lots of positive changes and is clean from drugs now. pt reported her daughter is open to building a relationship with her dad. Pt reported feeling anxious about daughter's reaction once has first phone call meeting today. Pt stated her focus this week will be on supporting her daughter and son with this change. Addit ional goal is to spend at least one hour everyday doing one form of self-care whether that be a bath, having alone time time, or watching a show she likes. Pt agreed with therapist she struggles with putting herself last which in the end impacts her mental health negatively. Risks/Concerns:: denies suicidal ideation, plan or intention to date. future focused. Progress Toward Goals/Plan:: Progress noted with pt reporting improved emotion regulation, coping with recent relationship stressor, and communicating more directly with her boyfriend about her needs. Pt continues to struggle with low self-esteem, inconsistent motivation levels, personal hygiene and getting chores done around the house. Pt to continue IOP to improve communication skills, increase self esteem, challenge negative thoughts and prevent decompensation. Time Stopped:: 12:35
--- NOTE | 2021-07-12 12:24 | PCM.BH.PN ---
Progress Note Progress Note: History of Present Illness/Interim History: [] The patient is a 26-year-old female who is seen in follow-up at the [facility] behavioral health IOP program. She has a 22-week intrauterine and is being treated for depression, anxiety and PTSD. She also has a history of polysubstance abuse disorder but has been sober from all drugs and alcohol for over 6 months now. I last saw the patient 2 weeks ago. 1 week ago the patient stated that she began to vomit anytime she took her Effexor XR so we discontinued this medication 1 week ago and she was changed to Lexapro 5 mg p.o. daily. She has been taking the Lexapro for 1 week and is tolerating it well. She tends to look up side effects and we discussed side effects again with particular emphasis on Lexapro and discussed the risks in and breast-feeding which are minimal. Her mood is slightly better. Her panic attacks are less severe but still are occurring once a week. She is having less crying spells now. She has been stressed recently by an argument with her boyfriend and then on the same day her daughters father contacted her after not speaking with him for 6 years and he wants to see his daughter now. He has been paying financial support. This has been stressful for the patient although she realizes that this father of her daughter is in a better place now on may be okay to see her daughter. Myah was seen by telehealth today. She denies passive thoughts of , suicidal ideation, homicidal ideation, hopelessness, hallucinations, delusions or symptoms of nina. Current Psychiatric Medications: [] Effexor XR discontinued 1 week ago. Lexapro 5 mg p.o. daily (started 1 week ago). Vistaril up to 3 times a day but does not take it often. Mental Status Examination: [] The patient is a 26-year-old female with a 22-week intrauterine who appears normal for stated age and is seen wearing a mask due to the pandemic. She is casually dressed and groomed with good hygiene. She has no psychomotor agitation or retardation. Eye contact is good and speech is normal rate and rhythm and fluent with no pressure. Mood is depressed. Affect is affect is full. Thought process is goal-directed and organized. Thought content: There is no evidence of passive thoughts of , suicidal ideation, homicidal ideation, delusions or hallucinations. She is tentative about taking medications and admits that she looks up side effects and worries about them. Judgment is intact. Insight is fair. Impulsivity is moderate. Diagnoses: [] 1. Major depressive disorder, recurrent, severe without psychosis 2. PTSD 3. History of polysubstance abuse disorder and alcohol abuse disorder. Sober from alcohol for over 6 months. Sober from other substances since age 18. 4. Nicotine dependence 5. 22-week intrauterine Plan: [] The patient will continue the IOP program at [facility] as the structure, support, education and group therapy will hopefully prevent worsening of the patient's symptoms which might require hospitalization. She felt safe during the interview but if it anytime she does not feel safe she agrees to let us know or go to the emergency room. The risks, options, possible complications and side effects of the medications were again discussed with the patient especially regarding Lexapro in and breast-feeding and she understands and accepts these. She also understands that any mild to minimal side effects of the Lexapro are less than the need for the benefit that she will obtain if she can avoid depression during . She agrees to try to eliminate smoking cigarettes and she agrees to stay sober from all drugs. The patient will continue to follow-up with her outpatient providers and I will see the patient in follow-up in 2 weeks and consider increasing Lexapro if the patient is willing and if she needs it.
--- NOTE | 2021-07-13 09:08 | BH.SGPN.GN ---
Behaviors/Verbalizations/Mental Status: []Client alert and oriented, casually dressed and groomed. Eye contact good. Motor activity appropriate. Speech within normal limits. Affect congruent, mood euthymic. Thoughts linear, logical, no signs of hallucinations or delusions. Reviewed client?s symptom tracker, client reports 2/5 for thoughts of suicided and 0/5 for risk. Client Response/Progress/Benefit: []Client responded well to session, attentive to others. Client reported feeling positive today. Client stated yesterday was the first phone call client's daughter had with her daughter's biological father. Client reported she is feeling relieved the phone call is easy and glad the interaction appeared to go very well. Client identified additional mental health positives as her children helping clean the house and this morning boyfriend gave her a compliment. Client identified current stressor is her sunroof is leaking, however reported she handled this stressor more effectively this morning compared to how she would have handled the stressor a few weeks ago. Client stated she has been being intentional to focus on the positives more often. Seemed to benefit from support from peers. Client to continue IOP to continue practicing open communication, continue use of healthy coping skills and prevent decompensation.
--- NOTE | 2021-07-13 10:05 | BH.SGPN.GN ---
Behaviors/Verbalizations/Mental Status: []Client alert and oriented, casually dressed and groomed. Eye contact good. Motor activity appropriate. Speech within normal limits. Affect congruent, mood euthymic. Thoughts linear, logical, no signs of hallucinations or delusions. Client Response/Progress/Benefit: []Client responded well to session AEB listening attentively and engaging with group members. Client was engaged throughout group discussion identifying myths about self care, with group reporting self care is selfish, has to be pampering, and is too expensive as myths. Client nodded and took notes throughout group discussion of the benefits of self care and barriers that get in the way of practicing it. Client participated in experiential activity illustrating the importance of utilizing self care. Client problem solved and provided supportive feedback to group members throughout activity. Appeared to benefit from increased knowledge of self care strategies and the importance of self care. Will continue IOP treatment to continue increasing application of self care and mood stability to increase daily functioning. Narrative Note: []
--- NOTE | 2021-07-13 11:16 | BH.SGPN.GN ---
Behaviors/Verbalizations/Mental Status: []Client alert and oriented, casually dressed and groomed. Eye contact good. Motor activity appropriate. Speech within normal limits. Affect congruent, mood euthymic and anxious. Thoughts linear, logical, no signs of hallucinations or delusions. Client Response/Progress/Benefit: []Client engaged participant AEB taking notes and providing some input throughout. Attentive during group discussion on the various areas of self-care and made connections with the activity. Client completed worksheet which identified current self-care practices and what self-care activities client wants to start using. Client shared currently doing well in self-care areas of financial and physical self-care. Client selected professional self-care as the area of self-care client would like to improve. Noted she could do so by making more connections with other parents and increasing her supports. Appeared to benefit from completing the self-care evaluation and gaining insights into current self-care practices, as well as identifying areas in which she would like to improve upon. Will continue IOP tx to increase application of healthy coping and self-care skills, further improve mood stability and distress tolerance skills, as well as prevent decompensation. Narrative Note: []
--- NOTE | 2021-07-18 09:00 | BH.SGPN.GN ---
Behaviors/Verbalizations/Mental Status: []Client alert and oriented, disheveled appearance. Eye contact good. Motor activity appropriate. Speech within normal limits. Affect congruent, mood euthymic. Thoughts linear, logical, no signs of hallucinations or delusions. Reviewed client?s symptom tracker, no risk for suicidal ideation, plan, or intent as of 07/18/21 Client Response/Progress/Benefit: []Client responded well to session, attentive and receptive to feedback. Client reports feeling tired and calm this morning. Client shared her only stressor today is that her belly has finally popped and client is unable to fit into her old clothes now. Client stated the weekend went well and she and her boyfriend have been communicating better. Client reported her boyfriend has been taking more childcare responsibility and he is being more open in communication. Client self-reported on the daily symptom tracker that her mood and functioning have been better than previous sessions. Appeared to benefit from connecting with peers and reflecting on positives. Will continue IOP tx to promote mood stability, set healthy boundaries, and increase emotional regulation skills. Narrative Note: []
--- NOTE | 2021-07-18 10:08 | BH.SGPN.GN ---
Client alert and oriented, casually dressed and groomed. Eye contact good. Motor activity appropriate. Speech within normal limits. Affect congruent, mood anxious and depressed. Thoughts linear, logical, no signs of hallucinations or delusions. Behaviors/Verbalizations/Mental Status: [] Client responded well to session AEB client taking notes, listening attentively to others, and providing input throughout. Group discussed the origin of coping skills, examples of unhealthy coping, and why we utilize them. Client identified shutting down or not asking for help, ignoring the problem, and procrastination as personal barriers to using healthy coping skills. Participated in experiential activity, providing possible solutions and strategies to peers. Client was attentive throughout group processing, shared that willingness to try new skills is garcia to healthy coping. Client took notes and provided input at times throughout discussion of the importance of external supports and a strong variety of internal coping skills. Appeared to benefit from increased knowledge of internal coping skills and identifying personal barriers to consistent skill application. Progress inconsistent as client has been struggling to manage several external stressors. Client will continue IOP treatment to promote mood stability, improve communication with supports, as well as prevent decompensation. Client Response/Progress/Benefit: [] Narrative Note: []
--- NOTE | 2021-07-18 11:10 | BH.SGPN.GN ---
Behaviors/Verbalizations/Mental Status: []Client alert and oriented, casually dressed and groomed. Eye contact good. Motor activity appropriate. Speech within normal limits. Affect congruent, mood euthymic. Thoughts linear, logical, no signs of hallucinations or delusions. Client Response/Progress/Benefit: []Client responded well to session, taking notes and nodding frequently. Group discussed the different categories of coping skills which included distraction, emotional release, grounding, self-love, and thought challenging. Client's coping skill menu included:journaling, walking, talk to someone for emotional release, identify daily wins, plan something to do for self, and saying negative thoughts out loud. Appeared to benefit from increasing repertoire of healthy coping skills. Will continue tx to prevent decompensation, continue use of healthy coping skills, and continue practicing setting boundaries.
--- NOTE | 2021-07-19 09:48 | BH.TPR ---
Treatment Plan Review Date of Admission:: 06/20/21 Date of Treatment Plan Review:: 07/19/21 Admitting Diagnoses:: 1. F33.2 Major depressive disorder, recurrent, severe without psychosis. 2. PTSD. 3. History of polysubstance abuse disorder in full remission since age 18. 4. Alcohol use disorder in full remission for 6 months. 5. Nicotine dependence. Current Diagnoses:: 1. F33.2 Major depressive disorder, recurrent, severe without psychosis. 2. PTSD. 3. History of polysubstance abuse disorder in full remission since age 18. 4. Alcohol use disorder in full remission for 6 months. 5. Nicotine dependence. Patient's Response to Treatment:: Pt has responded well to IOP AEB consistent attendance, contributions to group therapy, and engaged in individual therapy. Pt does struggle at times with following through on her individual goals set in therapy. Status of Current Problems and Symptoms: Client reporting significant treatment progress in the last week after she started setting boundaries and improving communicating with her boyfriend. Prior to the last week client had been showing variable progress. Client's mood was often connected to how things were going at home with her boyfriend. Client was struggling initially with using skills learned in IOP, but has shown improvement in the last week with utilization of skills. Per client's DSM 5 cross cutting measure at review her overall symptoms have decreased by 80% compared to intake DSM 5 scores. Problem #1 Problem Name:: Depression Status of Goals:: Obj 1 - met with ongoing work encouraged. Pt is able to identify healthy coping skills like opposite action, asking for help, setting boundaries, and engaging in self-care. Pt showing increased use of skills in last week but could benefit from continued work to show consistency of skills. obj 2 - met with ongoing work encouraged. Per pt's DSM 5 scores pt's depressive symptoms have decreased by 50%. Team Recommendations:: Team recommends continued work on current goal and objectives to demonstrate pt's ability to maintain progress. Problem #2 Status of Goals:: Obj 1 - met with ongoing work encouraged. Pt is able to identify calming skills like belly breathing, engaging 5 senses and grounding skills. Pt showing increased use of skills in last week but could benefit from continued work to show consistency of skills. obj 2 - met with ongoing work encouraged. Per pt's DSM 5 scores pt's anxious symptoms have decreased by 87.5%. Team Recommendations:: Team recommends continued work on current goal and objectives to demonstrate pt's ability to maintain progress.
--- NOTE | 2021-07-20 09:00 | BH.SGPN.GN ---
Behaviors/Verbalizations/Mental Status: Eye contact is good. Motor activity is appropriate. Appearance is casual. Speech is appropriate. Mood is anxious. Affect is congruent. Thoughts are linear and logical. No evidence of psychosis. Reviewed daily symptom tracker sheet with no reports of suicidal ideations, plan, or intent.[] Client Response/Progress/Benefit: [] Client was engaged AEB pt openly sharing thoughts and feelings and appeared attentive to others. Client reported current stressor is her daughter's biological dad hasn't followed through with calling their daughter like he had promised. Client stated she doesn't want her daughter to get her hopes up that her biological dad will be in her life but then he doesn't follow through. Client reported mental health positive as laughing with her son for half hour last night. 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 Client stated she realizes she doesn't like she is in the right mental health place to be exposed to potentially traumatic calls. Client seemed to benefit from support from peers. Will continue IOP treatment to continue engaging in self care, continue working on assertive communication and prevent decompensation.
--- NOTE | 2021-07-20 10:10 | BH.SGPN.GN ---
Behaviors/Verbalizations/Mental Status: [] Eye contact is good. Motor activity is appropriate. Appearance is casual. Speech is Appropriate. Mood is euthymic. Affect is full. Thoughts are linear and logical. No evidence of psychosis Client Response/Progress/Benefit: [] Pt was an active participant in group discussion. Engaged in activity. Attentive during psychoeducation on the 4 stages of change. Pt participated and shared insight during interactive discussion regarding the obstacles to making changes which included; anxiety, fear of the unknown, what if it doesn't go well?, makes us leave comfort zone, expects things to go bad, FOF, past experiences with change were negative, and shame. Pt participated in activity which led to discussion on emotions commonly associated with change ( confused, cautious, guilty, overwhelmed, happy, anxious, confident, hopeful, and frightened. Benefited from increased insight and awareness of obstacles to change, common emotions associated with change, and the stages of change. Will continue in IOP to prevent decompensation, increase healthy coping, and stabilize mood. Narrative Note: []
--- NOTE | 2021-07-20 11:15 | BH.SGPN.GN ---
Behaviors/Verbalizations/Mental Status: []Client alert and oriented, casually dressed and groomed. Eye contact good. Motor activity appropriate. Speech within normal limits. Affect congruent, mood stressed. Thoughts linear, logical, no signs of hallucinations or delusions. Client Response/Progress/Benefit: []Client responded well to session, attentive. Did well to process activity and work with group to relate the strategies used to overcome barriers in the activity to managing change in own life. Client identified a change they would like to make as ?I want to love myself again.? Client reports barriers to change as fear of seeming selfish and fear of focusing on only herself and ?not all my priorities?. Client set a goal of creating a self-care routine and using 1-2 affirmations a day. Appeared to benefit from identifying a small goal to work towards. Client will continue IOP tx to prevent decompensation, improve emotional regulation skills, and improve self-confidence. Narrative Note: []
--- NOTE | 2021-07-21 09:00 | BH.SGPN.GN ---
Behaviors/Verbalizations/Mental Status: [] Eye contact is good. Motor activity is appropriate. Appearance is disheveled. Speech is Appropriate. Mood is depressed. Affect is flat. Thoughts are linear and logical. No evidence of psychosis. Reviewed daily check in sheet and no reports of suicidal ideations or intent. Client Response/Progress/Benefit: [] Pt was an active participant in group discussion. Attentive. Daily symptom tracker notes 05/31 for depression, anxiety, and anger. Shared that she had some bad moments last night. Verbal argument and struggles with current relationship are impacting mental health. Pt is unsure on her future as BF threatened to leave last evening. Significant distress as pt is currently and unemployed. This stressor along with her the father of her daughter not following through with communicate with daughter has also caused stress. Per pt her daughter was upset due to bio-father not calling her as he was suppose too. Per pt her daughter was crying and was blaming herself for her father not calling. Group was empathetic and provided positive encouragement. Pt was being supportive with daughter, not bashing her dad, and answering her questions as best she could. Limited progress due to psychosocial stressors. Benefited from group support, encouragement, and feedback. Will continue in IOP to prevent decompensation, stabilize mood, and increase healthy coping. Narrative Note: []
--- NOTE | 2021-07-21 10:08 | BH.SGPN.GN ---
Behaviors/Verbalizations/Mental Status: [] Client alert and oriented, casually dressed and groomed. Eye contact good. Motor activity appropriate. Speech within normal limits. Affect congruent, mood dysthymic and anxious. Thoughts linear, logical, no signs of hallucinations or delusions. Client Response/Progress/Benefit: []Client receptive to session, listening attentively to others and providing input. Actively listening and taking notes as the group brainstormed the positive and negative aspects of stress on physical and mental health, discussed stress as a motivator. Group worked together to define stress and provided input during discussion about eustress vs distress. Client identified personal stressors which included: family issues, , finances, and loneliness. Client reports belief that her stress jar is 75-80% full which can result in client shutting down or getting irritable. Seemed to benefit from increased awareness of current stressors and impact of too much stress on the mind and body. Will continue IOP tx to prevent decompensation, improve mood stability, and promote consistent use of healthy coping skills. Narrative Note: []
--- NOTE | 2021-07-24 09:03 | BH.SGPN.GN ---
Behaviors/Verbalizations/Mental Status: []Client alert and oriented, casually dressed and groomed. Eye contact good, tearful. Motor activity appropriate. Speech within normal limits. Affect full, mood anxious and overwhelmed. Thoughts linear, logical, no signs of hallucinations or delusions. Reviewed client?s symptom tracker denies any suicidal ideation, plan, or intent as of 07/18/21. Client Response/Progress/Benefit: [] Client responded well to session, attentive and willing to process with group. Client reports feeling mixed emotions this morning as she had a stressful previous day. Explained that she had taken her daughter to meet her biological father for the first time. Shared that this had gone better than she had expected and that she was glad to have her partner for support, however her daughter had struggled with processing her emotions afterwards. Expressed trying to be patient and reaching out to her daughter?s therapist for additional support as well but is feeling emotionally overwhelmed this morning. Receptive of and appeared to benefit from group support and suggestions. Progress noted in client overall ability to address current stressor and maintain mood stability in doing so. Client will continue IOP tx to promote healthy communication with supports, continue to encourage stress management, and maintain mood stability. Narrative Note: []
--- NOTE | 2021-07-24 10:15 | BH.SGPN.GN ---
Behaviors/Verbalizations/Mental Status: []Client alert and oriented, casually dressed and groomed. Eye contact good. Motor activity appropriate. Speech within normal limits. Affect congruent, mood euthymic. Thoughts linear, logical, no signs of hallucinations or delusions. Client Response/Progress/Benefit: []Client responded well to session AEB taking notes and listening attentively to others. Client was engaged throughout group activity identifying famous individuals and how they overcame failure to be successful. Group defined fear of failure and discussed its impact on their mental health and relationships. Client participated in experiential activity, providing supportive feedback throughout. Appeared to benefit from increased knowledge of fear of failure. Will continue IOP treatment to continue increasing application of healthy coping skills and decrease negative self-talk to improve overall functioning. Narrative Note: []
--- NOTE | 2021-07-24 11:15 | BH.SGPN.GN ---
Behaviors/Verbalizations/Mental Status: []Client alert and oriented, casually dressed and groomed. Eye contact good. Motor activity appropriate. Speech within normal limits. Affect constricted, mood dysthymic. Thoughts linear, logical, no signs of hallucinations or delusions. Client Response/Progress/Benefit: []Client responded well to session, engaged in the experiential activity and attentive throughout group processing. Client completed fear of failure worksheet and was able to identify thoughts and behaviors that reinforce personal fear of failure including: fear of fully expressing herself, self-sabotage, and believing ?I?m not good enough.? Client also reported that fear of failure has kept client from experiencing michelle, dancing and singing with her kids, and getting a degree. Client participated in small group discussion regarding strategies to overcome fear of failure. Identified wanting to work on challenging fear of failing by meeting with her therapist to set small goals. Appeared to benefit from increased knowledge of strategies to combat fear of failure and gaining self-awareness. Client will continue IOP tx to improve mood stability, increase interpersonal effectiveness skills, and improve daily functioning. Narrative Note: []
--- NOTE | 2021-07-24 15:49 | BH.MDN ---
Multi-Disciplinary Note - Note 45-min Individual Time Started:: 11:20 Date: 07/21/21 Purpose of session/treatment goals addressed:: Purpose of session was to address goals 1 and 2 from MTP. Eye Contact:: Good Motor Activity:: Appropriate Appearance:: Casual Speech:: Appropriate Mood:: Anxious, Dysthymic Affect:: Constricted Thoughts:: Linear, Logical, No evidence of hallucinations/delusions noted Staff Interventions:: thought challenging, CBT techniques, strengths perspective, reviewed DSM-5, goal setting, other - improving communication in relationship Client Response:: Client reported feeling frustrated with her daughter's biological dad because he didn't call her daughter when he said he would. Client stated she had to deal with a very disappointed and sad girl all night. Client reported she's worried daughter's biological dad won't step up like he told client he wanted to do. Client stated she was feeling down herself about the situation and expressed to her boyfriend that she needed more attention from him right now. Client reported her boyfriend blew up telling her that she only cares about getting her needs met. Client stated she really felt like she had communicated effectively with her boyfriend by not yelling and asking directly for what she needs. However, she stated her boyfriend took what she said defensively and did not respond well. Client stated her boyfriend threatened to leave her and said he would take custody of their unborn child. Client reported her boyfriend has threatened this before and although it makes her anxious, she doesn't think he could actually take custody away from her. Client reported she ignored her boyfriend the rest of the night because didn't want to keep fighting. Client stated she is feeling hopeless/numb about her relationship. Client connected with discussion about fair fighting rules and client agreed going to couples counseling before the new baby comes would be ideal. Client stated her boyfriend often gives excuses as to why couples counseling can't happen yet. Reviewed DSM 5 cross cutting measure scores since this is client's 4th week in the program. Client stated despite having some stressors today she can note progress with decreased depression, increased motivation, taking time for self-care, improved communication, and improved emotional regulation. Client stated she does need to establish with a counselor and PCP. Client reported her goal for the weekend is to finish organizing her house and to spend quality time with her kids. Risks/Concerns:: Denies suicidal/homicidal ideation, plan or intention to date. Progress Toward Goals/Plan:: Client progress noted with decreased depression, decreased anxious symptoms, improved emotional regulation, increased self-care, and decreased irritability. Client notes doing better with addressing behavioral issues with her kids. Client has shown improved communication skills. Client at times has struggled with consistent application of skills. Client trying to cope with two significant stressors that appear to be negatively impacting her mood. Client's relationship discord could be barrier to maintaining treatment progress. Client to continue IOP to continue use of healthy coping skills, challenge negative thoughts, and prevent decompensation. Time Stopped:: 12:00
== END 2021-07-24 23:59 | disposition home or self-care (01) ==
LOC: BHIOP 07:31
PROVIDERS: Visit Provider Psychiatry & Neurology Psychiatry
DX: O99.342 Other mental disorders complicating pregnancy, second trimester (principal); F33.2 Major depressive disorder, recurrent severe without psychotic features; F43.10 Post-traumatic stress disorder, unspecified; F17.210 Nicotine dependence, cigarettes, uncomplicated; Z3A.22 22 weeks gestation of pregnancy
CPT/HCPCS: 99213; 99214; H2012; H2020; S9480; 90832; 90834

== ENCOUNTER 2021-07-17 09:48 | Outpatient (CLI) | payer MEDICAID, SELFPAY ==
[2021-07-17 12:03] LABS: Amphetamine Urine VISTA NEGATIVE (<1000 ng/mL); Barbiturate Urine VISTA NEGATIVE (< 200 ng/mL); Benzodiazepine Urine VISTA NEGATIVE (< 200 ng/mL); Cocaine Urine VISTA NEGATIVE (< 300 ng/mL); Ecstacy Urine VISTA NEGATIVE (< 500 ng/mL); Methadone Urine VISTA NEGATIVE (< 300 ng/mL); PCP Urine VISTA NEGATIVE (< 25 ng/mL); THC Urine VISTA NEGATIVE (< 50 ng/mL)
[2021-07-17 14:17] LABS: Vista UDS pH Range 6
== END 2021-07-17 23:59 | disposition home or self-care (01) ==
LOC: LABSPEC 07-18 09:49
PROVIDERS: Visit Provider Nurse Practitioner Women's Health
DX: Z04.89 Encounter for examination and observation for other specified reasons (principal); Z87.898 Personal history of other specified conditions
CPT/HCPCS: 80307

== ENCOUNTER 2021-07-25 07:39 | Outpatient (RCR) | payer MEDICAID, SELFPAY ==
[2021-07-25 00:38] VITALS: BP 146/89; PULSE 108
--- NOTE | 2021-07-25 09:05 | BH.SGPN.GN ---
Behaviors/Verbalizations/Mental Status: [] Eye contact is good. Motor activity is appropriate. Appearance is casual. Speech is Appropriate. Mood is euthymic. Affect is full. Thoughts are linear and logical. No evidence of psychosis. Reviewed daily check in sheet and no reports of suicidal ideations or intent. Client Response/Progress/Benefit: [] Pt was an active participant in group discussion. Attentive. Provided appropriate feedback. Emotion for today is hopeful. Shared that she is feeling much better today than yesterday. Reviewed with group her stressors over the weekend regarding her daughter. Pt played an active role in communicating with her daughter and ensuring that she had access to school counseling to help daughter with recent significant change (visiting with bio-dad). Pt blamed herself as she believed that daughter initially struggled with change, however currently is adjusting well. Able to see through her healthy communication and reliance on support she was able to making good decisions which impacted her daughter. Proud of herself for how she helped her daughter through this change in her life. Progress noted per pt report. Benefited from group support, encouragment, and feedback. Will continue in IOP to maintain gains, prevent decompensation, and increase healthy coping. Narrative Note: []
--- NOTE | 2021-07-25 10:05 | BH.SGPN.GN ---
Behaviors/Verbalizations/Mental Status: []Eye contact is good. Motor activity is appropriate. Appearance is casual. Speech is Appropriate. Mood is anxious and euthymic. Affect is congruent. Thoughts are linear and logical. No evidence of psychosis. Client Response/Progress/Benefit: [] Pt was an active participant in group discussion AEB taking notes and providing input throughout. Attentive during psychoeducation reviewing internal and external obstacles and provided examples throughout. Participated in the reflection activity in which clients radha pictures depicting their current and desired reality and shared with the group. Pt shared in current reality she is working with her supports to build a house with a more stable foundation and although it isn?t always easy and sometimes the weather doesn?t cooperate, they continue to work on it. Shared this is a huge improvement as in the past she would not have allowed supports to help her and she would have felt trapped by her mental health. Desired reality is to have the house build with the tools to make repairs as needed. Acknowledged the likelihood she faces setbacks along the way but feels she now has the skills to better manage them as they arise. Pt to continue IOP to further improve daily functioning, and promote healthy coping, as well as prevent decompensation. Narrative Note: []
--- NOTE | 2021-07-25 11:10 | BH.SGPN.GN ---
Behaviors/Verbalizations/Mental Status: []Client alert and oriented, casually dressed and groomed. Eye contact good. Motor activity appropriate. Speech within normal limits. Affect congruent, mood euthymic. Thoughts linear, logical, no signs of hallucinations or delusions. Client Response/Progress/Benefit: []Client an active participant, encouraging peers and contributed as group brainstormed ideas on how to cope with internal barriers that keep clients stuck from moving towards goals. Able to identify barriers to desired reality. Identified barriers to current reality to include: negative self-talk, self-doubt, and blaming self for things out of her control. Client wants to work on overcoming the barrier of self-blame by challenging personalization and looking at the facts rather than placing blame on herself. Benefited from group by identifying obstacles and solutions to desired reality. Client?s first day of IOP tx. Will continue IOP tx to improve emotional regulation skills, reduce negative thought patterns, and improve daily functioning. Narrative Note: []
--- NOTE | 2021-07-27 10:15 | BH.SGPN.GN ---
Behaviors/Verbalizations/Mental Status: []Client alert and oriented, casually dressed and groomed. Eye contact good. Motor activity appropriate. Speech within normal limits. Affect congruent, mood anxious. Thoughts linear, logical, no signs of hallucinations or delusions. Client Response/Progress/Benefit: []Pt engaged throughout AEB taking notes, listening attentively, and providing some input throughout, though more quiet than in prior sessions. Attentive during psychoeducation and discussed the importance of goal-setting with the group. Pt indicated that goals are ?something you strive for to better yourself?. Group identified potential benefits of having goals to include: they motivate, increase self-confidence, provide a sense of accomplishment, help hold you accountable, and provide a sense of purpose. Group also worked together to identify barriers to goal-setting which included; negative self-talk, lack of motivation, fear of other?s reactions, unrealistic expectations, and procrastination/excuses. Pt identified personal barriers to include low motivation, excuses, and negative self-talk. Benefited from increased awareness of benefits and barriers to goal-setting. Pt will continue in IOP to prevent decompensation, increase healthy boundaries with supports, as well as further improve daily functioning. Narrative Note: []
--- NOTE | 2021-07-27 11:15 | BH.SGPN.GN ---
Behaviors/Verbalizations/Mental Status: []Client alert and oriented, casually dressed and groomed. Eye contact good. Motor activity appropriate. Speech within normal limits. Affect congruent, mood euthymic. Thoughts linear, logical, no signs of hallucinations or delusions. Client Response/Progress/Benefit: []Pt was an active participant in group discussions and activities. Engaged in activity. Pt identified a SMART goal for the next week is to: practice self-care for 5-10 minutes every morning and night. Pt reported this would benefit her by having a few minutes to herself and change perspective in the morning and evening. Identified kids not giving her time, exhaustion, and feeling she didn't earn self-care as potential barriers to completing this goal. Pt able to identify several solutions, such as asking for help and identifying accomplishments, that can help overcome identified barriers. Benefited from group by being able to utilize SMART educate to create a goal. Pt to continue IOP to continue use of healthy coping skills, challenge distorted thoughts and prevent decompensation.
--- NOTE | 2021-07-27 13:31 | BH.MDN_ITS ---
Multi-Disciplinary Note - Note 30-min Individual Time Started:: 10:12 Date: 07/27/21 Purpose of session/treatment goals addressed:: Purpose of session was to address goals 1 and 2 from MTP. Eye Contact:: Fair Motor Activity:: Appropriate Appearance:: Casual Speech:: Appropriate Mood:: Euthymic, Anxious Affect:: Congruent Thoughts:: Linear, Logical, No evidence of hallucinations/delusions noted Staff Interventions:: thought challenging, CBT techniques, discharge planning - Gave number for patient to call to schedule appointment for outpatient counseling, taught coping skills - reviewed skills, discussed healthy communication and self-care strategies Client Response:: Client reported she took her family to meet her daughter's biological father and grandmother at a [employer] play restaurant. Client stated the hangout went really well, watching her daughter have a lot of fun with her biological dad. Client reported her boyfriend became frustrated with her daughter and he made unhelpful comments to client's daughter. Client stated it seems her boyfriend might have some jealousy about biological dad wanting to be in her daughter's life. Client reported she was able to communicate more effectively with her boyfriend the last couple days without big blowups. Client stated feeling some stress that her daughter has been having wetting accidents at school the last two days and showing some behavioral issues. Client reported she is taking daughter to the doctors this week to see if there is a cause of the accidents. Client able to recognize that her daughter might be having some anxiety about all the changes that have recently occured with meeting her biological dad for the first time. Client stated despite having several different stressors recently she has been overall managing her emotions more effectively. Client reported mood has been more stable and can use skills to manage anxiety. Client stated showing improvement with getting things done around the house. 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 Client stated she has been missing work so excited to get back out there for a shift. Risks/Concerns:: Client denies suicidal ideation, plan or intention to date. future focused. Progress Toward Goals/Plan:: Progress noted with client reporting improved mood, more effective communication skills, using healthy coping skills to manage anxiety, and improved motivation. Client has experienced several psychosocial stressors recently that she has coped with in a more healthy manner. Client continues to struggle with current relationship. Since she has started program her relationship has fluctuated from doing well one week to being a cause of significant distress the next week. Continued relationship issues could be barrier to treatment progress. Plan is for client to discharge from [facility] next week. Client will be joining [facility] aftercare program after discharge from [facility]. Provided client with information to schedule outpatient counseling appointment. Time Stopped:: 10:40
--- NOTE | 2021-07-31 09:00 | BH.SGPN.GN ---
Behaviors/Verbalizations/Mental Status: [] Eye contact is good. Motor activity is appropriate. Appearance is casual. Speech is Appropriate. Mood is euthymic. Affect is full. Thoughts are linear and logical. No evidence of psychosis. Reviewed daily check in sheet and no reports of suicidal ideations or intent. Client Response/Progress/Benefit: [] Pt was an active participant in group discussion. Attentive. Provided appropriate feedback. Identified several mental health wins stating I had a really good weekend. Utilizing skills, setting aside alone time, utilizing self-care, and spending quality time with support. She worked a shift for the first time since 04/2021 and stated It was nice and gave me some purpose. Shared how she was able to help out a stranger who was struggling with a mental health crisis which made me feel good. Progress noted per pt report. Benefited from group support, encouragement, and feedback. Will continue in IOP to maintain gains with plan to discharge this week. Narrative Note: []
--- NOTE | 2021-07-31 10:05 | BH.SGPN.GN ---
Behaviors/Verbalizations/Mental Status: []Client alert and oriented, casually dressed and groomed. Eye contact good. Motor activity appropriate. Speech within normal limits. Affect congruent, mood euthymic. Thoughts linear, logical, no signs of hallucinations or delusions. Client Response/Progress/Benefit: []Pt was an attentive participant AEB taking notes and contributing occasionally. Attentive during psychoeducation on Conflict Styles ( Avoidant, Competing, Accommodating, and Collaborating). Participated in interactive group discussion on benefits of conflict.? Pt along with peers identified several reasons conflict is often avoided as well as why conflict is beneficial to one?s mental health and relationships. Pt reported she tries to start with the collaborating style, but ends up ?falling back? into the accommodating style. Pt shared being accommodating benefits her significant other, but leads to resent for pt. Benefited from increased awareness on conflict styles. Will continue IOP tx to improve emotional regulation skills, combat cognitive distortions, and increase self-care. Narrative Note: []
--- NOTE | 2021-07-31 11:15 | BH.SGPN.GN ---
Behaviors/Verbalizations/Mental Status: []Client alert and oriented, casually dressed and appropriately groomed. Eye contact good. Motor activity appropriate. Speech within normal limits. Affect congruent, mood euthymic. Thoughts linear, logical, no signs of hallucinations or delusions. Client Response/Progress/Benefit: []Client engaged in session AEB contributing to discussion and taking notes. Client did well to participate during the activity in which participants were challenged to eliminate various items through group consensus. Client contributed to discussion of the barriers that occurred during the activity as well as the conflict resolution strategies. Client reported when she gets upset she tends to express everything she feels without giving the other person a chance to talk. Client stated she knows this can escalate the conflict and doesn't allow the other person to work with her on coming up with a compromise. Client reported she'd like to work on taking turns with speaking so she can hear the other person's perspective and the other person will feel heard. Appeared to benefit from learning strategies to better manage conflict. Will continue IOP tx to continue use of healthy coping skills, challenge negative thinking and prevent decompensation.
--- NOTE | 2021-08-01 09:06 | BH.SGPN.GN ---
Behaviors/Verbalizations/Mental Status: []Client alert and oriented, casually dressed and groomed. Eye contact good. Motor activity appropriate. Speech within normal limits. Affect congruent, mood anxious, dysthymic. Thoughts linear, logical, no signs of hallucinations or delusions. Reviewed client?s symptom tracker, no risk for suicidal ideation, plan, or intent as of 08/01/21 Client Response/Progress/Benefit: [] Client responded well to session, attentive and receptive to feedback on how to best advocate for her own mental health needs through healthy boundary setting. Client reports feeling hopeful but frustrated this morning as client is able to identify several areas in which she has made progress but had a frustrating experience with others talking about her behind her back. Shared successfully returning to work for a day to help with coverage and discovering that several of her colleagues had been making negative comments about her taking time off from work. Expressed feeling frustrated as her boyfriend had not stood up for her despite being present during these discussions. Shared not wanting to follow through with plans to spend time with him and his friends this evening as a result; however, reminded herself that not isolating is also an important aspect of continuing to improve her mental health as well. Appeared to benefit from reflecting on her options and skills she can use to cope with current stressors, as well as supportive suggestions from the group. Client will continue IOP tx to promote mood stability, continue to improve healthy boundary setting, and reduce isolation. Narrative Note: []
--- NOTE | 2021-08-01 10:10 | BH.SGPN.GN ---
Behaviors/Verbalizations/Mental Status: []Client alert and oriented, casually dressed and groomed. Eye contact good. Motor activity appropriate. Speech within normal limits. Affect congruent, mood euthymic. Thoughts linear, logical, no signs of hallucinations or delusions. Client Response/Progress/Benefit: []Client responded well to session AEB sharing and listening attentively to others. Client participated in group discussion defining boundaries and their importance. Clinician provided psychoeducation on types of boundaries, including physical, material, and emotional. Client participated in group discussion, providing a personal example and stating that enforcing physical boundaries can include moving away from others when they have violated them. Client appeared to benefit from increased knowledge of types of boundaries and self- awareness. Will continue IOP treatment to increase healthy coping skills and decrease negative self talk to improve daily functioning. Narrative Note: []
--- NOTE | 2021-08-01 15:36 | BH.MDN_ITS ---
Multi-Disciplinary Note - Note 30-min Individual Time Started:: 11:40 Date: 08/01/21 Purpose of session/treatment goals addressed:: Client reported in process group struggling with recent stressor. Purpose of session was to process recent stressor and discuss upcoming discharge this week. Eye Contact:: Fair Motor Activity:: Appropriate Appearance:: Casual Speech:: Soft Mood:: Anxious, Dysthymic Affect:: Congruent, Other - tearful Thoughts:: Linear, Logical, No evidence of hallucinations/delusions noted Staff Interventions:: thought challenging, CBT techniques, discharge planning - Reminded client to contact outpatient counselor to establish first appointment., strengths perspective, taught coping skills - reviewed skills Client Response:: Client reported she got into an argument with her boyfriend last night because she asked him about another woman he was messaging. Client tearfully reported he told her that all his co-workers think that she is only with him because he pays the bills. Client stated she was really hurt that he is saying negative things about her to his co-workers that are not true. Client reported her boyfriend towards the end of the fight said that he didn't say any of those things to his co-workers but she doesn't believe him. Client stated she tried using her conflict resolution skills yesterday like taking a break when too emotional but that only made her boyfriend more mad. Client reported she is starting to question this relationship more and more. Client stated her boyfriend won't get help for his own issues and she doesn't know if she can take much more. Therapist helped client challenge the negative thoughts she was having about depending on him for money. Client able to remind self that she isn't working right now because her boyfriend didn't want her to work while she is . Therapist also helped client remember that she has been independent financially as a single mom before with two children. Therapist encouraged client to look at the facts and not the opinions of others. Client stated khoi she is supposed to go on a double date with her boyfriends friends. Client reported anxiety about having to meet new people, especially since it is a co-worker of her boyfriends. Client stated she is worried the boyfriends friend will already of a negative view of her before they even meet. Client receptive to discussing plan for khoi's dinner. Client stated she did not contact the counseling agency that therapist had given her last week. Client stated she will call today and schedule an appointment. Risks/Concerns:: Denies suicidal ideation, plan or intention to date. Future focused. Progress Toward Goals/Plan:: Progress noted with client attempting to apply conflict resolution skills she just learned in group during a conflict with her boyfriend. Client reports she has been working on being more calm in her approach with conflict. Client does report increased anxiety and sadness today due to recent stressor with boyfriend. Client still can note treatment progress she has made since starting IOP. Plan is for client to discharge from [facility] on Saturday08/04/21. Client is to call outpatient counseling agency to get individual counseling established. Client will start [facility] Aftercare program on 08/10/21. Time Stopped:: 12:15
--- NOTE | 2021-08-04 09:06 | BH.SGPN.GN ---
Behaviors/Verbalizations/Mental Status: []Eye contact is good. Motor activity is appropriate. Appearance is casual. Speech is Appropriate. Mood is euthymic. Affect is congruent. Thoughts are linear and logical. No evidence of psychosis. Reviewed daily check in sheet and no reports of suicidal ideations or intent. Client Response/Progress/Benefit: []Pt receptive of session and engaged throughout. Reports current emotion as ?happy? and ?hopeful? today as this is hER last day in IOP tx and She is proud of the progress She has made throughout the time She has attended the program. Discussed areas of improvement including improved ability to PRIORITIZE HER MENTAL HEALTH NEEDS, SET BOUNDARIES, AND PRACTICE MORE CONSISTENT SELF-CARE. Shared small wins which include spending more quality time with her children this morning and accomplishing her goal to complete laundry last night. Discussed skills she can continue to use to maintain gains post discharge as well. Pt appeared to benefit from acknowledging progress and supportive feedback provided by group. Will continue with individual outpatient tx to maintain gains and prevent decompensation post IOP d/c. Narrative Note: []
--- NOTE | 2021-08-04 11:15 | BH.SGPN.GN ---
Behaviors/Verbalizations/Mental Status: []Client alert and oriented, casually dressed and groomed. Eye contact good. Motor activity appropriate. Speech within normal limits. Affect congruent, mood euthymic. Thoughts linear, logical, no signs of hallucinations or delusions Client Response/Progress/Benefit: []Pt did well to remain attentive throughout session, AEB providing input throughout discussion. Engaged as group reviewed the importance of taking a strengths-based approach to foster a healthier perspective and better manage mental health symptoms. Completed strengths exploration worksheet and identified personal strengths to include: creativity, honesty, and resilience. Pt reported these strengths are currently helping pt have a broad spectrum of coping skills. Pt helped group identify strategies to increase acknowledgement of strengths. Benefited from identifying personal strengths and strategies for enhancing use of identified strengths. Pt to discharge from IOP tx today as pt has met tx goals and no longer meets criteria for IOP level of care. Narrative Note: []
--- NOTE | 2021-08-04 15:26 | BH.DS ---
Discharge Summary - Demographics Date of Admission:: 06/20/21 Discharge Date: 08/04/21 Presenting Problems at Admission:: Pt has hx of depression and anxiety. Endorses feelings of depression with crying spells, irritability, mildly hopeless, feelings of worthlessness, anhedonia, low energy, low motivation, and poor concentration. Pt reports panic attacks 1-5 days per week. Pt?s mental health symptoms impacting relationship with boyfriend due to increased irritability which has caused more conflict. 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 Discharge Diagnoses:: 1. F33.2 Major depressive disorder, recurrent, severe without psychosis. 2. PTSD. 3. History of polysubstance abuse disorder in full remission since age 18. 4. Alcohol use disorder in full remission for 6 months. 5. Nicotine dependence. Reason for Discharge:: Pt has made significant treatment progress and no longer meets medical necessity for IOP level of care. - Treatment Progress During Treatment & Response: Per pt's DSM 5 cross cutting measure at discharge scores indicate a 50% reduction in depression, 67% reduction in anger, 75% reduction in anxiety and 73% overall reduction in symptoms when compared to scores at start of IOP. Pt has shown ability to overcome setbacks experienced while in IOP. Pt consistently attended IOP sessions and often was an active participant during discussions. Issues Still to be Addressed:: Could benefit from continued reinforcement of healthy coping skills and assertive communication. Pt stated she had desire to seek couples counseling to improve relationship prior to the new baby due date. Continuing work on emotion regulation, increasing self-care, and stress reduction would be additional issues to be addressed. Discharge Recommendations/Instructions:: Pt is to start [facility] aftercare program on 08/10/21. Pt had been provided resources for individual and psychiatry services but has not reached out. Pt stated she is waiting to hear back from her insurance company. Discharge Handout: Complete Discharge Handout with client on aftercare options and continuity of care.
--- NOTE | 2021-08-04 16:25 | BH.MDN ---
Multi-Disciplinary Note - Note 30-min Individual Time Started:: 10:10 Time Stopped:: 10:40
== END 2021-08-04 12:33 | disposition home or self-care (01) ==
LOC: BHIOP 07:39
PROVIDERS: Visit Provider Psychiatry & Neurology Psychiatry
DX: F33.2 Major depressive disorder, recurrent severe without psychotic features (principal); F43.10 Post-traumatic stress disorder, unspecified; Z72.0 Tobacco use
CPT/HCPCS: H2012; H2020; S9480; 90832

== ENCOUNTER 2021-08-14 10:50 | Outpatient (CLI) | payer MEDICAID, SELFPAY ==
[2021-08-14 11:08] LABS: Absolute Lymphocyte Count 1.18 X10^3/uL (0.83-4.51); Absolute Neutrophil Count 11.9 X10^3/uL (2.0-7.7); Basophil# 0.02 X10^3/uL; Basophil% 0.1 % (0-1); Eosinophil# 0.48 X10^3/uL; Eosinophils% 3.4 % (0-5); Hematocrit 29.6 % (37-47); Hemoglobin 10.1 g/dL (12.0-15.0); Lymphocyte # 1.18 X10^3/ul (0.83-4.51); Lymphocyte % 8.4 % (19-41); Mean Corp Hgb Conc 34.1 g/dL (32-36); Mean Corpuscular Hgb 31.7 pg (27.0-32.0); Mean Corpuscular Volume 92.8 fL (81-99); Mean Platelet Vol. 9.6 fl (6.2-12.0); Monocyte# 0.38 X10^3/uL; Monocyte% 2.7 % (0-10); NRBC Flagged by Analyzer 0 % (0-5); Neutrophil # 11.89 X10^3/uL (2.7-7.7); Platelet Count 314 K/mm3 (150-450); RBC Distribution Width CV 13.6 % (11.6-14.6); RBC Distribution Width SD 45.7 fl (35.1-43.9); Red Blood Count 3.19 M/mm3 (4.2-5.4)
[2021-08-14 11:30] LABS: Glucose Challenge Gest 1H 50g 205 mg/dL (70-140)
== END 2021-08-14 23:59 | disposition home or self-care (01) ==
LOC: PAVLAB 10:50
PROVIDERS: Nurse Practitioner Women's Health; Referring Provider Obstetrics & Gynecology; Visit Provider Obstetrics & Gynecology
DX: R06.02 Shortness of breath (principal)
CPT/HCPCS: 87635; 36415; 82950; 85025; U0003

== ENCOUNTER 2021-08-17 09:00 | Outpatient (RCR) | payer MEDICAID, SELFPAY ==
--- NOTE | 2021-08-17 14:00 | BH.SGPN.GN ---
Behaviors/Verbalizations/Mental Status: []Client alert and oriented, casually dressed and groomed. Eye contact good. Motor activity appropriate. Speech within normal limits. Affect congruent, mood anxious. Thoughts linear, logical, no signs of hallucinations or delusions. Client Response/Progress/Benefit: []Pt receptive of session, engaged throughout. Pt completed her aftercare self-reflection worksheet sharing she has been taking her meds, she has not seen a therapist yet since discharge from [facility], and she has been using communication skills. Receptive of discussion on personal accountability and its importance in maintaining mental health stability. Pt worked cooperatively with group to identify benefits of maintaining personal accountability. Engaged in brainstorming strategies for improving ability to hold themselves accountable. Reported she wants to work on creating challenging or ?games? with herself and her partner to increase motivation and help pt hold herself more accountable. Pt seemed to benefit from support from peers and increasing understanding of personal accountability benefits and strategies. Will continue [facility] aftercare group to maintain gains and prevent decompensation. Narrative Note: []
--- NOTE | 2021-08-17 14:31 | BH.MTP ---
Master Treatment Plan - Patient Information Program Physician:: Dr. Padmini Patel Primary Therapist:: Carol Swartz [facility] - Psychiatric Diagnoses Psychiatric Diagnoses:: F33.2 Major depressive disorder, recurrent, severe without psychosis; PTSD. 3. History of polysubstance abuse disorder in full remission since age 18; Alcohol use disorder in full remission for 6 months; Nicotine dependence. Diagnosis Code(s):: F 33.2 - Estimated LOS Estimated LOS (in weeks):: 10 Problem/Goal #1 - Problem/Goal #1 Stated Goal:: client will maintain or see a reduction in symptoms AEB client score on the DSM 5 cross-cutting measure and improve client's daily functioning. - Objectives Objective #1 Stated Objective: Client will continue to consistently apply healthy coping skills to maintain progress made in IOP tx. Interventions: Through group therapy, client will review warning signs and triggers as well as healthy coping skills learned in IOP tx to successfully maintain gains while transitioning into outpatient therapy. Discharge Criteria: Client will have accomplished this goal when client's score on the DSM-5 cross-cutting measure has either maintained or reduced over a 10 week period. Target Date: 10/26/21 Review Date: 09/14/21 Status: open Objective #2 Stated Objective: Client will learn and utilize 2-3 maintenance strategies to prevent decompensation from original IOP DSM-5 scores. Interventions: Through group therapy, client will be provided with education on healthy maintenance behaviors, relapse prevention techniques, and healthy coping strategies. Discharge Criteria: Client will have accomplished this goal when can report using at least 2 maintenance skills to prevent decompensation compared to original IOP DSM-5 scores Target Date: 10/26/21 Review Date: 09/14/21 Status: open
--- NOTE | 2021-08-24 14:00 | BH.SGPN.GN ---
Behaviors/Verbalizations/Mental Status: []Client alert and oriented, casually dressed and groomed. Eye contact good. Motor activity appropriate. Speech within normal limits. Affect congruent, mood euthymic. Thoughts linear, logical, no signs of hallucinations or delusions. Client Response/Progress/Benefit: []Client responded well to session AEB sharing and listening attentively to others. Client reported using deeping breathing and trying to stay open to communication. Client reported having appointments scheduled with her outpatient individual therapist and psychiatrist and taking her medication consistently. Client participated in group discussion of healthy decision making, including what goes into making a healthy decision and what keeps us from making them. Client participated in experiential small group activity and processing. Client identified physical self-care and finances as areas of life she would like to make healthier decisions. Client?s goal to work toward making healthier decisions this week is to make a list of her hobbies to see which she could turn into passive income. Appeared to benefit from increased knowledge of healthy decision making. Will continue aftercare treatment to reinforce anxiety management skills and promote gains. Narrative Note: []
== END 2021-08-24 23:59 ==
LOC: BHOG 09:00
PROVIDERS: Visit Provider Psychiatry & Neurology Psychiatry
DX: F33.2 Major depressive disorder, recurrent severe without psychotic features (principal); F43.10 Post-traumatic stress disorder, unspecified; F17.210 Nicotine dependence, cigarettes, uncomplicated
CPT/HCPCS: 90853

== ENCOUNTER 2021-08-25 10:34 | Outpatient (RCR) | payer MEDICAID, SELFPAY ==
--- NOTE | 2021-09-07 14:00 | BH.SGPN.GN ---
Behaviors/Verbalizations/Mental Status: []Client alert and oriented, casually dressed and groomed. Eye contact good, at times tearful when sharing. Motor activity appropriate. Speech within normal limits. Affect congruent, mood anxious, dysthymic. Thoughts linear, logical, no signs of hallucinations or delusions. Client Response/Progress/Benefit: [] Pt responded well to session, engaged and remaining attentive and willing to participate in discussion throughout. Pt reported having some difficulty getting established with outpatient counselor and psychiatrist. Therapist offered to provided additional resources if needed, pt declined because stated waiting on her insurance to call her back. 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 Stated she is using communication, deep breathing, setting boundaries, and letting herself cry as strategies to manage emotions. Pt reports connecting with the topic of routine and structure and it?s importance in ongoing mental health maintenance. Pt engaged in brainstorming of various daily routine ideas. Pt completed task of identifying current routine practices as well as important tasks to begin more regularly implementing into a structured daily routine. Pt seemed to benefit from support from peers and learning about benefits of routine. Pt to continue aftercare group to promote ongoing use of healthy coping, continue to use open communication, and prevent decompensation.
--- NOTE | 2021-09-14 14:00 | BH.SGPN.GN ---
Behaviors/Verbalizations/Mental Status: []Client alert and oriented, casual in appearance. Eye contact good. Motor activity appropriate. Speech within normal limits. Affect congruent. Mood euthymic. Thoughts linear, logical, no signs of hallucinations or delusions Client Response/Progress/Benefit: []Pt responded well to session AEB providing input throughout and listening attentively to others. Pt reported current emotion as ?tired? and attributes this in part to needing to adjust her expectations of herself as her physical limitations continue to change during presession in her . Pt reports she has remained consistent with regular outpatient counseling and is working to schedule an appointment for ongoing medication management. Pt identified several coping skills she has been using over the past week to continue to manage mental health sx and maintain mood stability, which included: communicating with supports, taking a second to calm herself before reacting, noting daily positives, and asking for help from her supports. Pt connected with self-reflection discussion. Worked with group to identify the benefits of self-reflection. Seemed to benefit from identifying how to incorporate self-reflection into life more often. Pt completed aftercare specific self-reflection activity and indicated she has seen improvements in overall ability to ?know when to share my load? and communicate for help from my supports. Explained he would like to continue to focus on making improvements in her daily self-care and reminding herself to set more realistic expectations for herself. Willing to complete weekly self-reflection assignment for homework. Pt to continue aftercare to maintain gains and prevent decompensation. Narrative Note: []
--- NOTE | 2021-09-14 16:07 | BH.MTP_ITS ---
Treatment Plan Review Date of Admission:: 08/17/21 Date of Treatment Plan Review:: 09/14/21 Admitting Diagnoses:: F33.2 Major depressive disorder, recurrent, severe without psychosis; PTSD. 3. History of polysubstance abuse disorder in full remission since age 18; Alcohol use disorder in full remission for 6 months; Nicotine dependence. Current Diagnoses:: F33.2 Major depressive disorder, recurrent, severe without psychosis; PTSD. 3. History of polysubstance abuse disorder in full remission since age 18; Alcohol use disorder in full remission for 6 months; Nicotine dependence. Patient's Response to Treatment:: Pt responding well to treatment AEB pt's consistent attendance, active engagement in group discussions. However, pt admits that she did not follow through with scheduling outpatient counseling and psychiatry after discharging from [facility] tx which could be a barrier to prolonged progress. Status of Current Problems and Symptoms: Pt continues to report stressors with her , parenting, and relationship. Pt has not seen an outpatient therapist or psychiatrist yet which could lead to decompensation in symptoms. Problem #1 Problem Name:: Pt will maintain or see a reduction in sx Status of Goals:: Obj 1 ? in progress. Based on pt's self-report, she continues to be able to manage stressors and emotions. Pt reports using skills more consi stently and advocating for herself within her relationship. Obj 2 - complete with ongoing work encouraged. Client has been consistently reporting using boundary setting and calming skills. Team Recommendations:: Recommended client continue IOP aftercare group in addition to attending regular outpatient counseling in order to maintain gains.
== END 2021-09-23 23:59 ==
LOC: BHOG 10:34
PROVIDERS: Visit Provider Psychiatry & Neurology Psychiatry
DX: F33.2 Major depressive disorder, recurrent severe without psychotic features (principal); F43.10 Post-traumatic stress disorder, unspecified; F17.200 Nicotine dependence, unspecified, uncomplicated
CPT/HCPCS: 90853

== ENCOUNTER 2021-09-11 11:30 | Outpatient (RCR) | payer MEDICAID, SELFPAY | END 2021-09-23 23:59 | LOC: DC 11:30 | PROVIDERS: Referring Provider Nurse Practitioner Women's Health; Visit Provider Nurse Practitioner Women's Health | DX: O24.419 Gestational diabetes mellitus in pregnancy, unspecified control (principal) | CPT/HCPCS: 97802 ==

== ENCOUNTER → 2021-09-21 | Outpatient (CLI) | payer MEDICAID, SELFPAY ==
--- NOTE | 2021-09-21 11:11 | US_ITS ---
STUDY: SECOND AND THIRD TRIMESTER OBSTETRICAL ULTRASOUND - LIMITED REASON FOR EXAM: Female, 26 years old growth @ 32 LMP: 02/07/2021. PRIOR ULTRASOUND: None. TECHNIQUE: Transabdominal TECHNICAL QUALITY: Adequate. FINDINGS: There is a single intrauterine fetus. The fetus is in a cephalic presentation. There is demonstrated cardiac activity with a heart rate of 135 bpm. There is a normal amniotic fluid volume. The largest amniotic fluid pocket measures 6.1 cm. The amniotic fluid index (QUINN) is 16.08 cm. The placenta is posterior in location and is not low lying. There are Grade 1 placental changes. The cervix measures 3.03 cm in length. BIOMETRY: BPD: 8.15 cm: 32 weeks, 6 days HC: 30.01 cm: 33 weeks, 2 days AC: 29.28 cm: 33 weeks, 2 days FL: 6.34 cm: 32 weeks, 6 days Age by LMP: 32 weeks, 2 days. DARCIE by LMP: 11/14/2021. age by current US: 33 weeks, 1 days. DARCIE by current US: 11/08/2021. Estimated weight: 2115 grams, +/- 309 grams, 66 percentile. US/OB Limited With Biometrics IMPRESSION: Single live intrauterine gestation with a mean gestational age of 33 weeks and 1 day. Electronically Signed: Chas Covarrubias MD at 14:15 EDT ,
== END | disposition home or self-care (01) ==
LOC: US 11:09
PROVIDERS: Referring Provider Nurse Practitioner Women's Health; Visit Provider Nurse Practitioner Women's Health
DX: O24.419 Gestational diabetes mellitus in pregnancy, unspecified control (principal)
CPT/HCPCS: 76816

== ENCOUNTER 2021-09-25 08:35 | Outpatient (RCR) | payer MEDICAID, SELFPAY ==
--- NOTE | 2021-09-28 17:42 | BH.COMM ---
Communication Note - Communication with Client Communication Note: Pt no showed/no called aftercare today.
--- NOTE | 2021-10-19 13:51 | BH.DS ---
Discharge Summary - Demographics Date of Admission:: 08/10/21 Discharge Date: 10/19/21 Presenting Problems at Admission:: Client discharged from [facility] tx and transitioned to IOP aftercare to maintain gains client made in IOP and to reinforce healthy coping skills. At admission to IOP aftercare, client reported experiencing mild-moderate symptoms of anxiety and depression. Client was reporting ongoing issues with prioritizing self-care and maintaining healthy communication with her supports as well. Client was also experiencing life stressors including returning to current , relationship stress, finances, and parenting. Discharge Diagnoses:: 1. F33.2 Major depressive disorder, recurrent, severe without psychosis. 2. PTSD. 3. History of polysubstance abuse disorder in full remission since age 18. 4. Alcohol use disorder in full remission for 6 months. 5. Nicotine dependence. Reason for Discharge:: Pt has not attended the last several weeks of the aftercare program due to several external stressors, such as childcare, work, and additional medical appointments making consistent attendance difficult. Pt in agreement to transition to traditional outpatient counseling to maintain gains as this will be easier with pt ongoing commitments. - Treatment Progress During Treatment & Response: When in attendance, pt was engaged in IOP aftercare as evidenced by client's participation in group discussions. Pt however struggled with consistent attendance due to multiple external responsibilities and stressors, pt self-reported this contributed to ongoing difficulties with consistently applying coping skills. At discharge from IOP aftercare, client self-reported that she was experiencing less depression and anxiety. Additionally, client was reporting an improved mood, more positive thinking patterns, and healthier boundaries and communication with supports. Pt reports she was able to maintain some of these gains post IOP d/c but continues to struggle with consistency and prioritizing her mental health needs. Issues Still to be Addressed:: Client can benefit from ongoing outpatient counseling and medication management to promote gains and reinforce healthy coping skills. Client can continue to work on increasing self-care, boundaries and communication with supports, as well as ongoing work on emotion regulation. Discharge Recommendations/Instructions:: Pt continues to be encouraged to reach out to individual outpatient providers for both counseling and medication management. Pt continues to struggle with prioritizing her mental health needs in order to do so. She has been given a list of available agencies in the area. Discharge Handout: Complete Discharge Handout with client on aftercare options and continuity of care.
== END 2021-10-19 09:27 | disposition home or self-care (01) ==
LOC: BHOG 08:35
PROVIDERS: Visit Provider Psychiatry & Neurology Psychiatry
DX: Z00.00 Encounter for general adult medical examination without abnormal findings (principal)

== ENCOUNTER 2021-09-25 10:46 | Outpatient (RCR) | payer MEDICAID, SELFPAY | END 2021-10-24 23:59 | LOC: DC 10:46 | PROVIDERS: Referring Provider Nurse Practitioner Women's Health; Visit Provider Nurse Practitioner Women's Health | DX: O24.419 Gestational diabetes mellitus in pregnancy, unspecified control (principal); Z3A.00 Weeks of gestation of pregnancy not specified | CPT/HCPCS: 97803 ==

== ENCOUNTER 2021-09-26 19:43 | Outpatient (CLI) | payer MEDICAID, SELFPAY ==
[2021-09-26] VITALS (47 sets, daily range): BP systolic 98–115; BP diastolic 53–67; PULSE 109–131; TEMP 36.5–36.9; O2SAT 92–97; BMI 34.3
--- NOTE | 2021-09-26 20:43 | US_ITS ---
STUDY: RENAL ULTRASOUND - COMPLETE REASON FOR EXAM: Female, 26 years old. r/o kidney stone TECHNIQUE: Ultrasound evaluation of the kidneys was performed with real-time and static hauser-scale imaging. COMPARISON: None. FINDINGS: RIGHT KIDNEY: Normal location of the right kidney, which is normal in size. The right kidney measures 12.17 x 4.75 cm. There is a normal cortex of the right kidney. There is no right renal mass or cyst. There are no right renal calculi. There is no right hydronephrosis. DISTAL RIGHT URETER: There is non-visualization of the distal right ureter. There is no demonstrated right ureterovesical junction calculus. There is a visualized right ureteral jet. LEFT KIDNEY: Normal location of the left kidney, which is normal in size. The left kidney measures 12.0 x 5.28 cm. There is a normal cortex of the left kidney. The renal cortex measures cm. There is no left renal mass or cyst. There are no left renal calculi. There is no left hydronephrosis. DISTAL LEFT URETER: There is non-visualization of the distal left ureter. There is no demonstrated left ureterovesical junction calculus. There is a visualized left ureteral jet. US/Kidney and Bladder IMPRESSION: Normal ultrasound of the kidneys and urinary bladder. Electronically Signed: Salvador Canela MD at 23:10 EDT ,
[2021-09-26] MEDS: Lactated Ringers 1,000 ML 999 ML IV (20:50)
[2021-09-26 20:52] LABS: Color, Urine Yellow (Yellow); Glucose, Dipstick Normal (Normal); Ketone-Dipstick 15 mg/dl (Negative); Leukocyte Esterase-Dipstick 25 /ul (Negative); Nitrite-Dipstick Negative (Negative); Occult Blood-Urine Negative /ul (Negative); Protein-Dipstick Negative (Negative); Urine Bilirubin Dipstick Negative (Negative); Urine Clarity Clear (Clear); Urine Urobilinogen Normal (Normal); Urine pH 6.5 (5.0 - 8.0)
[2021-09-26 21:11] LABS: Hematocrit 28.5 % (37-47); Hemoglobin 9.6 g/dL (12.0-15.0); Mean Corp Hgb Conc 33.7 g/dL (32-36); Mean Corpuscular Hgb 30.8 pg (27.0-32.0); Mean Corpuscular Volume 91.3 fL (81-99); Platelet Count 259 K/mm3 (150-450); RBC Distribution Width CV 14.1 % (11.6-14.6); RBC Distribution Width SD 46.7 fl (35.1-43.9); Red Blood Count 3.12 M/mm3 (4.2-5.4); White Blood Count 10.1 K/mm3 (4.4-11.0)
[2021-09-26 21:12] LABS: Bacteria 0 SEEN /hpf (None Seen); Mucous, Urine 0 SEEN /hpf (<or=2+); Red Blood Cells-Urine 0 SEEN /hpf (0-5)
[2021-09-26 21:16] LABS: Bedside Glucose 107 mg/dL (74-106)
[2021-09-26 21:28] LABS: Squamous Epithelial Cells - UA 0-5 SEEN /hpf (5-10); White Blood Cells 0-5 SEEN /hpf (0-5)
[2021-09-26] MEDS: Lactated Ringers 1,000 ML 150 ML IV (21:52)
[2021-09-26] MEDS: cycloBENZAPRine HCl 10 MG Tablet PO (21:53)
[2021-09-26] MEDS: Acetaminophen 500 MG Tablet 1000 MG PO (21:53)
--- NOTE | 2021-09-26 23:21 | CT_ITS ---
STUDY: CTA CHEST REASON FOR EXAM: Female, 26 years old. tachycardia, r/o PE/pneumonia RADIATION DOSAGE (If Supplied By Facility): CTDIvol = ( 10.62 ) mGy, DLP = ( 400.38 ) mGycm TECHNIQUE: The examination was performed with the intravenous administration of IV 100mL Isovue-370. Post-processing of the angiographic images was performed, with multiplanar reformation and 3D reconstruction. Individualized dose optimization techniques were used for this CT. COMPARISON: None. FINDINGS: Normal enhancement of the main pulmonary artery and right and left pulmonary arteries. Normal enhancement of the bilateral peripheral pulmonary arteries. There is no demonstrated pulmonary embolism. Normal thoracic aorta and visualized great vessels. There is no demonstrated aortic dissection. Normal heart and pericardium. Normal mediastinum. Normal hilar regions. Normal visualized trachea and bronchi. The lungs are well expanded. Normal pulmonary parenchyma. Normal pleura. Normal chest wall structures. Normal osseous structures. Normal visualized upper abdomen. CT/CTA Chest W/WO Contrast IMPRESSION: Normal CTA chest examination, without a demonstrated pulmonary embolism or arterial dissection. Electronically Signed: Salvador Canela MD at 1:35 EDT ,
[2021-09-27] VITALS (27 sets, daily range): BP systolic 99; BP diastolic 55; PULSE 102–236; TEMP 37; O2SAT 94–97
[2021-09-27] MEDS: Lactated Ringers 1,000 ML 999 ML IV (01:44)
--- NOTE | 2021-09-27 02:31 | OB.TRI.HP_ITS ---
HPI - General HPI Narrative MARC BARTLETT, is a 26 F who presents with low back and upon initial evaluation tachycardia and dehydration. Patient was given some muscle relaxer and IV fluids and had a renal ultrasound that was within normal limits. However after IV fluids she was still tachycardic and noted to be having a pulse ox of 94 to 96% she denied any chest pain or shortness of breath but due to the signs she underwent a CT of the chest which was negative for pathology. Patient denies any vaginal bleeding or loss of fluid admits good movement. Maternal Data Information DARCIE Calculator Estimated Delivery Date Method Current WG Current Estimate 11/14/21 LMP (Certain) 33w 1d PFSH PFSH Medical History Alcohol use disorder, mild, in sustained remission Major depressive disorder, recurrent severe without psychotic features Polysubstance abuse PTSD (post-traumatic stress disorder) Home Medications hydroxyzine pamoate 50 mg capsule 50 mg PO TID-QID PRN #60 cap 06/19/21 [Rx Last Taken Unknown] blood sugar diagnostic #100 ea 08/14/21 [Rx Last Taken Unknown] blood-glucose meter #1 ea 08/14/21 [Rx Last Taken Unknown] iron 1 tab PO DAILY 09/26/21 [History Last Taken 09/25/21] Allergy/AdvReac Type Severity Reaction Status Date / Time bee venom protein (honey bee) Allergy Severe Anaphylaxis Verified 09/26/21 20:15 pine nut Allergy Intermediate Hives Verified 09/26/21 20:15 Family History Mother Hypertension Myocardial infarction Colon cancer Diabetes Father Myocardial infarction Grandmother Myocardial infarction CHF (congestive heart failure) Brother Diabetes Surgical History Hx of cholecystectomy Social History household members: family number of children: 2 current occupational status: employed current occupation: EMS; [employer] Smoking Status: Current every day smoker tobacco type: cigarettes second hand exposure: No alcohol intake: never substance use type: does not use caffeine: Yes what type of physical activity do you participate in: walking seatbelt use: always do you feel safe at home: Yes additional social history: Single History 5 Elective abortions Hx Para 2 Spontaneous abortions Hx # Term Pregnancies Ectopic pregnancies Hx # Pregnancies Multiple births # of living children 2 Past Pregnancies Del. Date Name GA/Weeks Outcome Route Bth Weight Infant Gen Labor Lgth Anesthesia Del Locatn Provider FOBraxton 03/19/14 Frida 37 live - full term 6 lbs 12 oz Fema le 28 hours epidural Pau Tran 11/13/17 Lorenzo 39 live - full term 6 lbs 14 oz Male 8 hours epidural [facility] Visit Details Expected Delivery Route/Plan labor Preferences- CB/BF classes: discussed labor support person: Shimon labor intervention preferences: Shimon would like to assist with the delivery pain management options preferred: epidural planned, but wants to start with nitro cut cord/dad catch: shimon to catch and cut : plans to breast feed PP control planned: discussed discussed possible routes of delivery and associated risks: [] special requests: [] Plans Covid status: vaccine declined Flu vaccine: declined Tdap vaccine: declines Rhogam:na LARC form signed: yes movement and labor precautions reviewed. Problem list reviewed and updated with the most current plan of care details and appropriate orders placed. Relevant counseling for the gestational age provided. Continue routine care and follow up unless otherwise noted in visit notes/problem list details OB Flowsheet Initial Weight: 163 lb Date -?-?-?-?-?-?-?-?-?-?-?-?- EGA Weight BP Urine Prot -?-?-?-?-?-?-?-?-?-?-?-?- Glucose FHR FuHt Pres Dilation -?-?-?-?-?-?-?-?-?-?-?-?- Effaced St Visit Note 03/31/21 -?-?-?-?-?-?-?-?-?-?-?-?- 7w 3d 163 lb (+0 oz) 118/70 -?-?-?-?-?-?-?-?-?-?-?-?- 185 -?-?-?-?-?-?-?-?-?-?-?-?- JV- CRL measurin g 7w6d, consistent enough with LMp, will not change DARCIE. 04/26/21 -?-?-?-?-?-?-?-?-?-?-?-?- 11w 1d 161 lb 8 oz (-1 lb 8 oz) 114/70 Negative -?-?-?-?-?-?-?-?-?-?-?-?- Negative 168 -?-?-?-?-?-?-?-?-?-?-?-?- JV- normal gluco la, normal cbc. bedside ultrasound for heart tones today. 05/12/21 -?-?-?-?-?-?-?-?-?-?-?-?- 13w 3d 159 lb 8 oz (-3 lb 8 oz) 126/72 Negative -?-?-?-?-?-?-?-?-?-?-?-?- Negative 160 -?-?-?-?-?-?-?-?-?-?-?-?- JV- pt is being seen today for lower pelvic pain. she left work today due to the pain. ua shows signs of UTI. macrobid sent to pharmacy. 06/19/21 -?-?-?-?-?-?-?-?-?-?-?-?- 18w 6d 158 lb (-5 lb) 110/80 -?-?-?-?-?-?-?-?-?-?-?-?- 150 -?-?-?-?-?-?-?-?-?-?-?-?- SM- no vb some c ramping, having signficiant anxiety, starting counseling and open to vistaril 07/17/21 -?-?-?-?-?-?-?-?-?-?-?--?- 22w 6d 164 lb 2 oz (+1 lb 2 oz) 126/70 Negative -?-?-?-?-?-?-?-?-?-?-?-?- Negative 142 -?-?-?-?-?-?-?-?-?-?-?-?- MH-NO VB, LOF. G ood FM. Tox screen. Anxiety stable 08/14/21 -?-?-?-?-?-?-?-?-?-?-?-?- 26w 6d 165 lb (+2 lb) 124/86 Negative -?--?-?-?-?-?-?-?-?-?-?-?- Negative 159 -?-?-?-?-?-?-?-?-?-?-?-?- -states has co ugh and is very SOB. Covid swab pending. Some BH and reviewed PL precautions. Anemic and GDM-reviewed and supplies sent. 08/28/21 -?-?-?-?-?-?-?-?-?-?-?-?- 28w 6d 167 lb (+4 lb) 110/64 Negative -?-?-?-?-?-?-?-?-?-?-?-?- Negative 143 28 -?-?-?-?-?-?-?-?-?-?-?-?- -No VB, LOF. G ood FM. States all glucose readings WNL. HAd 1 hr GCT of 205 and 3 hr deferred. She does not feel she is GDM. Appt Dr Snyder 09/14 and told can have her review all readings to decide if can decrease testing. Growth US 32 and 36 wk ordered. 09/11/21 -?-?-?-?-?-?-?-?-?-?-?-?- 30w 6d 168 lb (+5 lb) 114/60 Negative -?-?-?-?-?-?-?-?-?-?-?-?- Negative 140 31 -?-?-?-?-?-?-?-?-?-?-?-?- SM- no vb lof go od fm no reuglar ctx 09/25/21 -?-?-?-?-?-?-?-?-?-?-?-?- 32w 6d 167 lb (+4 lb) 116/68 Negative -?-?-?-?-?-?-?-?-?-?-?-?- Negative 145 32 -?-?-?-?-?-?-?-?-?-?-?-?- MH-NO VB, LOF. G ood FM. Glucose readings wnl. 09/26/21 -?-?-?-?-?-?-?-?-?-?-?-?- 33w 0d 169 lb 15.622 oz (+6 lb 15.622 oz) 115/67 98/53 Negative mg/dl (Nega tive) -?-?-?-?-?-?-?-?-?-?-?-?- -?-?-?-?-?-?-?-?-?-?-?-?- ROS Constitutional Constitutional: Reports systems reviewed and no addt'l complaints, except as documented and as per HPI ENT HEENT: Reports systems reviewed and no addt'l complaints, except as documented Cardiovascular Cardiovascular: Reports systems reviewed and no addt'l complaints, except as documented Respiratory/Chest Respiratory/Chest: Reports systems reviewed and no addt'l complaints, except as documented Gastrointestinal Gastrointestinal: Reports as per HPI Genitourinary Genitourinary: Reports as per HPI Musculoskeletal Musculoskeletal: Reports systems reviewed and no addt'l complaints, except as documented Integumentary Integumentary: Reports systems reviewed and no addt'l complaints, except as documented Neurologic Neurologic: Reports systems reviewed and no addt'l complaints, except as documented Physical Exam Const alert, oriented x3 and no apparent distress HEENT Head and Scalp: normocephalic and atraumatic Neck full ROM and no lymphadenopathy Chest inspection of chest normal Resp normal respiratory effort GI GI Narrative: gravid, abdomen nontender, AGA Manual OB Exam: dilated, effaced and station NST FHR Rate Baby A Baseline: 130 Variability:: Moderate Accelerations:: 15 x 15 Decelerations:: None NST Reactive:: Yes FHR Category:: Category I Uterine Activity:: No regular Assessment & Plan (1) Tachycardia: COMMENT: IVFs given and ct chest done, negative (2) Dehydration: COMMENT: IV fluids given (3) Low back pain: COMMENT: negative renal ultrasound PLAN: fu as scheduled Charges/Coding Multi Select Codes Visit Charges Office Visit/Consults: 52919 OV L3 Est Urinary/Genital Urinary/Genital CPT Codes: 49608-28 non-stress test Interp
== END 2021-09-27 03:15 | disposition home or self-care (01) ==
LOC: WPOUT 19:49 → WP 19:50
PROVIDERS: Visit Provider Obstetrics & Gynecology
DX: O99.891 Other specified diseases and conditions complicating pregnancy (principal); M54.50 Low back pain, unspecified; R00.0 Tachycardia, unspecified; O99.283 Endocrine, nutritional and metabolic diseases complicating pregnancy, third trimester; E86.0 Dehydration; O99.333 Smoking (tobacco) complicating pregnancy, third trimester; F17.210 Nicotine dependence, cigarettes, uncomplicated; Z3A.00 Weeks of gestation of pregnancy not specified
CPT/HCPCS: 96365; 96366 ×5; 36415; 59025; 59050; 71275; 76770; 81001; 82962; 85027; 86850; 86900; 86901; 87086; 87088; 99218; J7120; Q9967; G0378

== ENCOUNTER → 2021-10-19 | Outpatient (CLI) | payer MEDICAID, SELFPAY ==
--- NOTE | 2021-10-19 11:45 | US_ITS ---
STUDY: SECOND AND THIRD TRIMESTER OBSTETRICAL ULTRASOUND REASON FOR EXAM: Female, 26 years old growth LMP: 02/07/2021 TECHNIQUE: Transabdominal TECHNICAL QUALITY: Adequate. PRIOR ULTRASOUND: None. FINDINGS: There is a single intrauterine fetus. The fetus is in a cephalic presentation. There is demonstrated cardiac activity with a heart rate of 157 bpm. There is a normal amniotic fluid volume. The largest amniotic fluid pocket measures 4.2 cm. The amniotic fluid index (QUINN) is 10.4 cm. The placenta is posterior in location and is not low lying. There are Grade 1 placental changes. The cervix measures in length. The adnexal regions are not visualized. BIOMETRY: BPD: 8.9 cm: 35 weeks, 6 days HC: 31.9 cm: 35 weeks, 6 days AC: 32.7 cm: 36 weeks, 3 days FL: 7.1 cm: 36 weeks, 2 days CI: 82.04 FL/BPD: 79.98 FL/HC: 22.29 FL/AC: 21.76 HC/AC: 0.98 age by current US: 35 weeks, 5 days. DARCIE by current US: 11/18/2021. Estimated weight: 2965 grams, +/- 445 grams, 59 %. Age by LMP: 36 weeks, 2 days. DARCIE by LMP: 11/14/2021. US/OB Limited With Biometrics IMPRESSION: Living intrauterine of 35 weeks 5 days as described above. Electronically Signed: Won Carrillo MD at 16:20 EDT ,
== END | disposition home or self-care (01) ==
LOC: OPUS 11:37 → US 11:39
PROVIDERS: Visit Provider Nurse Practitioner Women's Health
DX: O24.410 Gestational diabetes mellitus in pregnancy, diet controlled (principal); Z3A.36 36 weeks gestation of pregnancy
CPT/HCPCS: 76816

== ENCOUNTER → 2021-10-26 | Outpatient (CLI) | payer MEDICAID, SELFPAY | END | disposition home or self-care (01) | LOC: LABSPEC 16:30 | PROVIDERS: Visit Provider Obstetrics & Gynecology | DX: Z36.85 Encounter for antenatal screening for Streptococcus B (principal) | CPT/HCPCS: 87081 ==

== ENCOUNTER 2021-11-06 22:35 | Inpatient (IN) | payer MEDICAID, SELFPAY ==
[2021-11-06 22:16] VITALS: PULSE 103; O2SAT 96
[2021-11-06 22:17] VITALS: O2SAT 93
[2021-11-06 22:18] VITALS: BP 126/82; PULSE 109; TEMP 36.5
[2021-11-06 22:24] VITALS: BMI 34.5
[2021-11-06] MEDS: Lactated Ringers 1,000 ML 50 ML IV (22:55)
[2021-11-06 23:31] LABS: Bedside Glucose 105 mg/dL (74-106)
[2021-11-06] MEDS: LACTATED RINGERS 500 ML 999 ML IV (23:46)
[2021-11-06 23:51] LABS: Absolute Lymphocyte Count 1.53 X10^3/uL (0.83-4.51); Absolute Neutrophil Count 13.5 X10^3/uL (2.0-7.7); Basophil# 0.04 X10^3/uL; Basophil% 0.2 % (0-1); Eosinophil# 0.14 X10^3/uL; Eosinophils% 0.8 % (0-5); Hematocrit 31.2 % (37-47); Hemoglobin 10.3 g/dL (12.0-15.0); Lymphocyte # 1.53 X10^3/ul (0.83-4.51); Lymphocyte % 9.2 % (19-41); Mean Corpuscular Hgb 29.4 pg (27.0-32.0); Mean Corpuscular Volume 89.1 fL (81-99); Mean Platelet Vol. 10.3 fl (6.2-12.0); Monocyte# 1.09 X10^3/uL; Monocyte% 6.6 % (0-10); NRBC Flagged by Analyzer 0 % (0-5); Neutrophil # 13.52 X10^3/uL (2.7-7.7); Neutrophil % 81.5 % (47-70); Platelet Count 376 K/mm3 (150-450); RBC Distribution Width CV 14.9 % (11.6-14.6); RBC Distribution Width SD 47.9 fl (35.1-43.9); White Blood Count 16.6 K/mm3 (4.4-11.0)
[2021-11-07] VITALS (37 sets, daily range): BP systolic 106–146; BP diastolic 57–78; PULSE 86–116; RESP 15–18; TEMP 36.1–37.2; O2SAT 94–100
[2021-11-07 00:21] LABS: Amphetamine Urine VISTA NEGATIVE (<1000 ng/mL); Barbiturate Urine VISTA NEGATIVE (< 200 ng/mL); Benzodiazepine Urine VISTA NEGATIVE (< 200 ng/mL); Cocaine Urine VISTA NEGATIVE (< 300 ng/mL); Ecstacy Urine VISTA NEGATIVE (< 500 ng/mL); Methadone Urine VISTA NEGATIVE (< 300 ng/mL); PCP Urine VISTA NEGATIVE (< 25 ng/mL); THC Urine VISTA NEGATIVE (< 50 ng/mL); Vista UDS pH Range 6
[2021-11-07] MEDS: fentaNYL-bupivacaine (epidural) 100 ML BAG EPIDURAL (00:49)
[2021-11-07 01:16] LABS: Bedside Glucose 105 mg/dL (74-106)
[2021-11-07] MEDS: 0.9% Saline Lock 10 ML Syringe IV (02:06)
[2021-11-07] MEDS: Ondansetron 4 MG/2 ML Vial IV (02:06)
[2021-11-07] MEDS: LACTATED RINGERS 500 ML 999 ML IV (03:27)
--- NOTE | 2021-11-07 04:09 | HP.PCM.OB_ITS ---
HPI - General General Date of Admission: 11/06/21 HPI Narrative MARC BARTLETT, is a 26 F who presents IAL 5 cm dilated made cervical change since office, regular ctx no vb lof admits good fm. BS controlled. Maternal Data Information DARCIE Calculator Estimated Delivery Date Method Current WG Current Estimate 11/14/21 LMP (Certain) 39w 0d PFSH PFSH Medical History (Updated 11/07/21 @ 04:[address] Padmini Cain MD) Alcohol use disorder, mild, in sustained remission Anxiety Depression Major depressive disorder, recurrent severe without psychotic features Polysubstance abuse PTSD (post-traumatic stress disorder) Home Medications hydroxyzine pamoate 50 mg capsule 50 mg PO TID-QID PRN #60 cap 06/19/21 [Rx Last Taken Unknown] blood sugar diagnostic #100 ea 08/14/21 [Rx Last Taken Unknown] blood-glucose meter #1 ea 08/14/21 [Rx Last Taken Unknown] iron 1 tab PO DAILY 09/26/21 [History Last Taken 09/25/21] Allergy/AdvReac Type Severity Reaction Status Date / Time bee venom protein (honey bee) Allergy Severe Anaphylaxis Verified 11/06/21 22:23 pine nut Allergy Intermediate Hives Verified 11/06/21 22:23 Family History Mother Hypertension Myocardial infarction Colon cancer Diabetes Father Myocardial infarction Grandmother Myocardial infarction CHF (congestive heart failure) Brother Diabetes Surgical History Hx of cholecystectomy Social History household members: family number of children: 2 current occupational status: employed current occupation: EMS; Component Technician Smoking Status: Former smoker second hand exposure: No alcohol intake: never substance use type: does not use caffeine: Yes what type of physical activity do you participate in: walking seatbelt use: always do you feel safe at home: Yes additional social history: Single History 5 Elective abortions Hx Para 2 Spontaneous abortions Hx # Term Pregnancies Ectopic pregnancies Hx # Pregnancies Multiple births # of living children 2 Past Pregnancies Del. Date Name GA/Weeks Outcome Route Bth Weight Infant Gen Labor Lgth Anesthesia Del Locatn Provider FOB 03/19/14 Frida 37 live - full term 6 lbs 12 oz Fema le 28 hours epidural Pau Tran 11/13/17 Lorenzo 39 live - full term 6 lbs 14 oz Male 8 hours epidural [facility] TIFFANIE Richard Visit Details Expected Delivery Route/Plan IOL by 39 labor Preferences- CB/BF classes: discussed labor support person: Shimon labor intervention preferences: Shimon would like to assist with the delivery pain management options preferred: epidural planned, but wants to start with nit ro cut cord/dad catch: shimon to catch and cut : plans to breast feed PP control planned: discussed discussed possible routes of delivery and associated risks: [] special requests: [] Plans Covid status: vaccine declined Flu vaccine: declined Tdap vaccine: declines Rhogam:na LARC form signed: yes movement and labor precautions reviewed. Problem list reviewed and updated with the most current plan of care details and appropriate orders placed. Relevant counseling for the gestational age provided. Continue routine care and follow up unless otherwise noted in visit notes/problem list details OB Flowsheet Initial Weight: 163 lb Date -?-?-?-?-?-?-?-?-?-?-?-?- EGA Weight BP Urine Prot -?-?-?-?-?--?-?-?-?-?-?-?- Glucose FHR FuHt Pres Dilation -?-?-?-?-?-?-?-?-?-?-?--?- Effaced St Visit Note 03/31/21 -?-?-?-?-?-?-?-?-?-?-?-?- 7w 3d 163 lb (+0 oz) 118/70 -?-?-?-?-?-?-?-?-?-?-?-?- 185 -?-?-?-?-?-?-?-?-?-?-?-?- JV- CRL measurin g 7w6d, consistent enough with LMp, will not change DARCIE. 04/26/21 -?-?-?-?-?-?-?-?-?-?-?-?- 11w 1d 161 lb 8 oz (-1 lb 8 oz) 114/70 Negative -?-?-?-?-?-?-?-?-?-?-?-?- Negative 168 -?-?-?-?-?-?-?-?-?-?-?-?- JV- normal gluco la, normal cbc. bedside ultrasound for heart tones today. 05/12/21 -?-?-?-?-?-?-?-?-?-?-?-?- 13w 3d 159 lb 8 oz (-3 lb 8 oz) 126/72 Negative -?-?-?-?-?-?-?-?-?-?-?-?- Negative 160 -?-?-?-?-?-?-?-?-?-?-?-?- JV- pt is being seen today for lower pelvic pain. she left work today due to the pain. ua shows signs of UTI. macrobid sent to pharmacy. 06/19/21 -?-?-?-?-?-?-?-?-?-?-?-?- 18w 6d 158 lb (-5 lb) 110/80 -?-?-?-?-?-?-?-?-?-?-?-?- 150 -?-?-?-?-?-?-?-?-?-?-?-?- SM- no vb some c ramping, having signficiant anxiety, starting counseling and open to vistaril 07/17/21 -?-?-?-?-?-?-?-?-?-?-?-?- 22w 6d 164 lb 2 oz (+1 lb 2 oz) 126/70 Negative -?-?-?-?-?-?-?-?-?-?-?-?- Negative 142 -?-?-?-?-?-?-?-?-?-?-?-?- MH-NO VB, LOF. G ood FM. Tox screen. Anxiety stable 08/14/21 -?-?-?-?-?-?-?-?-?-?-?-?- 26w 6d 165 lb (+2 lb) 124/86 Negative -?-?-?-?-?-?-?-?-?-?-?-?- Negative 159 -?-?-?-?-?-?-?-?-?-?-?-?- -states has co ugh and is very SOB. Covid swab pending. Some BH and reviewed PL precautions. Anemic and GDM-reviewed and supplies sent. 08/28/21 -?-?-?-?-?-?-?-?-?-?-?-?- 28w 6d 167 lb (+4 lb) 110/64 Negative -?-?-?-?-?-?-?-?-?-?-?-?- Negative 143 28 -?-?-?-?-?-?-?-?-?-?-?-?- -No VB, LOF. G ood FM. States all glucose readings WNL. HAd 1 hr GCT of 205 and 3 hr deferred. She does not feel she is GDM. Appt Dr Snyder 09/14 and told can have her review all readings to decide if can decrease testing. Growth US 32 and 36 wk ordered. 09/11/21 -?-?-?-?-?-?-?-?-?-?-?-?- 30w 6d 168 lb (+5 lb) 114/60 Negative -?-?-?-?-?-?-?-?-?-?-?-?- Negative 140 31 -?-?-?-?-?-?-?-?-?-?-?-?- SM- no vb lof go od fm no reuglar ctx 09/25/21 -?-?-?-?-?-?-?-?-?-?-?-?- 32w 6d 167 lb (+4 lb) 116/68 Negative -?-?-?-?-?-?-?-?-?-?-?-?- Negative 145 32 -?-?-?-?-?-?-?-?-?-?-?-?- -NO VB, LOF. G ood FM. Glucose readings wnl. 09/26/21 -?-?-?-?-?-?-?-?-?-?-?-?- 33w 1d 169 lb 15.622 oz (+6 lb 15.622 oz) 115/67 98/53 99/55 Negative mg/dl (Nega tive) -?-?-?-?-?-?-?-?-?-?-?-?- -?-?-?-?-?-?-?-?-?-?-?-?- 10/02/21 -?-?-?-?-?-?-?-?-?-?-?-?- 33w 6d 163 lb 6 oz (+6 oz) 118/66 Negative -?-?-?-?-?-?-?-?-?--?-?-?- Negative 153 34 -?-?-?-?-?-?-?-?-?-?-?-?- MH-No Vb, LOF. G ood FM. States all BS readings WNL. Has not seen endo yet(10/05). Will call in readings. 10/09/21 -?-?-?-?-?-?-?-?-?-?-?-?- 34w 6d 165 lb (+2 lb) 90/58 Negative -?-?-?-?-?-?-?-?-?-?-?-?- Negative 150 35 -?-?-?-?-?-?-?-?-?-?-?-?- SM- no vb lof go od fm no regular ctx SM- no vb lof good fm no reg ular ctx BS controlled with diet 10/16/21 -?-?-?-?-?-?-?-?-?-?-?-?- 35w 6d 168 lb (+5 lb) 126/82 Negative -?-?-?-?-?-?-?-?-?-?-?-?- Negative 150 36 -?-?-?-?-?-?-?-?-?-?-?-?- SM- no vb lof go od fm no regular ctx BS controlled 10/26/21 -?-?-?-?-?-?-?-?-?-?-?-?- 37w 2d 169 lb (+6 lb) 122/82 Negative -?-?-?-?-?-?-?-?-?-?-?-?- Negative 135 37 Cephalic 2 -?-?-?-?-?-?-?-?-?-?-?-?- 60 -2 SM- no vb lof good fm nor egualr ctx SM- no vb lof good fm nor eg ualr ctx. BS controlled reviewed US 11/02/21 -?-?-?-?-?-?-?-?-?-?-?-?- 38w 2d 169 lb (+6 lb) 120/84 Negative -?-?-?-?-?-?-?-?-?-?-?-?- Negative 145 37 Cephalic 2 -?-?-?-?-?-?-?-?-?-?-?-?- 60 -2 JV- labor precautions discussed. no complaints today. 11/06/21 -?-?-?-?-?-?-?-?-?-?-?-?- 38w 6d 170 lb (+7 lb) 122/88 -?-?-?-?-?-?-?-?-?-?-?-?- 140 38 Cephalic 3 -?-?-?-?-?-?-?-?-?-?-?-?- 70 -1 SM_ no vb lof good fm irregular ctx membranes swept BS controlled discussed IOL saturday if no labor 11/06/21 -?-?-?-?-?-?-?-?-?-?-?-?- 38w 6d 171 lb (+8 lb) 126/82 120/63 133/74 139/75 131/71 120/65 125/65 114/63 112/65 116/59 118/65 131/69 120/75 117/68 106/59 -?-?-?-?-?-?-?-?-?-?-?-?- -?-?-?-?-?-?-?-?-?-?-?-?- NST FHR Rate Baby A Baseline: 140 Variability:: Moderate Accelerations:: 15 x 15 Decelerations:: None NST Reactive:: Yes FHR Category:: Category I Uterine Activity:: q3-5 ROS Constitutional Constitutional: Reports systems reviewed and no addt'l complaints, except as documented ENT HEENT: Reports systems reviewed and no addt'l complaints, except as documented Cardiovascular Cardiovascular: Reports systems reviewed and no addt'l complaints, except as documented Respiratory/Chest Respiratory/Chest: Reports systems reviewed and no addt'l complaints, except as documented Gastrointestinal Gastrointestinal: Reports systems reviewed and no addt'l complaints, except as documented and nausea; Denies abdominal pain Genitourinary Genitourinary: Reports systems reviewed and no addt'l complaints, except as documented, contractions Details: present and frequency (regular ) and movement Details: present Musculoskeletal Musculoskeletal: Reports systems reviewed and no addt'l complaints, except as documented Integumentary Integumentary: Reports as per HPI Neurologic Neurologic: Reports systems reviewed and no addt'l complaints, except as documented Endocrine Endocrinology: Reports systems reviewed and no addt'l complaints, except as documented Vital Signs Vital Signs Vital Signs: 11/06/21 22:16 11/06/21 22:17 11/06/21 22:18 Temperature 97.7 F L Temperature Source Temporal Pulse Rate 103 H 109 H Blood Pressure 126/82 H BP Systolic 126 BP Diastolic 82 Pulse Ox 96 93 11/07/21 00:22 11/07/21 00:27 11/07/21 00:32 Temperature Temperature Source Pulse Rate 98 97 Blood Pressure 120/63 BP Systolic 120 BP Diastolic 63 Pulse Ox 99 96 100 11/07/21 00:33 11/07/21 00:37 11/07/21 00:42 Temperature Temperature Source Pulse Rate 94 112 H 104 H Blood Pressure 133/74 H 139/75 H 131/71 H BP Systolic 133 139 131 BP Diastolic 74 75 71 Pulse Ox 99 99 11/07/21 00:47 11/07/21 00:48 11/07/21 00:52 Temperature Temperature Source Pulse Rate 93 106 H Blood Pressure 120/65 BP Systolic 120 BP Diastolic 65 Pulse Ox 98 99 11/07/21 00:53 11/07/21 00:57 11/07/21 01:02 Temperature Temperature Source Pulse Rate 105 H 100 103 H Blood Pressure 125/65 H 114/63 112/65 BP Systolic 125 114 112 BP Diastolic 65 63 65 Pulse Ox 98 98 11/07/21 01:07 11/07/21 01:11 11/07/21 01:42 Temperature Temperature Source Pulse Rate 116 H 111 H 93 Blood Pressure 116/59 L 118/65 131/69 H BP Systolic 116 118 131 BP Diastolic 59 65 69 Pulse Ox 99 11/07/21 02:06 11/07/21 02:11 11/07/21 02:55 Temperature 97.1 F L Temperature Source Temporal Pulse Rate 106 H 90 90 Blood Pressure 120/75 BP Systolic 120 BP Diastolic 75 Pulse Ox 98 95 11/07/21 02:57 11/07/21 03:48 Temperature Temperature Source Pulse Rate 86 101 H Blood Pressure 117/68 106/59 L BP Systolic 117 106 BP Diastolic 68 59 Pulse Ox 97 Weight Weight: 171 lb Body Mass Index (BMI) 34.5 Physical Exam Const alert, oriented x3 and healthy appearing Constitutional Narrative: uncomfortable with contractions HEENT normocephalic and moist oral mucous membranes Head and Scalp: atraumatic Neck full ROM, no lymphadenopathy, supple and thyroid normal General: trachea midline Thyroid: thyroid normal Lymph Lymphatic: no lymphadenopathy noted Chest inspection of chest normal Resp normal respiratory effort Cardio regular rate GI normal to inspection, nondistended, normoactive bowel sounds, soft to palpation and non-tender Inspection: gravid external exam normal Bimanual Exam - Vag & Uterus: uterus non-tender Manual OB Exam: estimated gestational size appropriate, presentation cephalic, dilated, effaced and station Extremity normal to inspection General Extremity: Negative for edema Skin no rashes or lesions noted Neuro deep tendon reflexes 2+ bilaterally Motor Exam: strength 5/5 throughout and clonus absent Psych mental status grossly normal Labs Labs Labs: Blood Type O POSITIVE Antibody Screen NEGATIVE Hct 31.2 % (37-47) L Hgb 10.3 g/dL (12.0-15.0) L Obstetrics US Syphilis Total Ab Non-reactive Rubella IgG Antibody Reactive (Nonreactive) Hep Bs Antigen Non-Reactive (Nonreactive) Chlamydia DNA (KAIN) Negative (Negative) Neisseria gonorrhoeae DNA (KAIN) Negative (Negative) HIV 1&2 Antibody Non-Reactive (Nonreactive) Glucose 1 Hr 50 gm 205 mg/dL (70-140) H Group B Strep DNA Negative (Negative) Rhogam given: No Assessment & Plan (1) History of drug abuse in remission: COMMENT: remission since 2012 *Tox screen negative 09/12/17* in recovery 3 years from heroin. recommend random drug screening. 07/17/21: (2) Anxiety with depression: COMMENT: Intensive Outpatient Therapy initial appt. 06/08. 07/17 stable (3) : QUALIFIERS: Weeks of gestation: 38 weeks Qualified Code(s): Z3A.38 - 38 weeks gestation of COMMENT: GBS Negative; anatomy nl, low risk genetic and carrier0 neg (4) Supervision of high risk , antepartum: COMMENT: PRR DARCIE: PC: Lorenzo Galicia BF: Shimon (5) Tobacco smoking affecting : QUALIFIERS: Trimester: second trimester Qualified Code(s): O99.332 - Smoking (tobacco) complicating , second trimester COMMENT: Smokes 3 cigarettes per week (6) History of stillbirth: COMMENT: SOPHIE Robins had a baby who was still born full term (7) UTI in : QUALIFIERS: Trimester: first trimester Qualified Code(s): O23.41 - Unspecified infection of urinary tract in , first trimester COMMENT: repeat negative (8) Gestational diabetes mellitus: QUALIFIERS: Gestational diabetes mellitus control: diet-controlled Trimester: second trimester Qualified Code(s): O24.410 - Gestational diabetes mellitus in , diet controlled COMMENT: ref dietitian and Dr Snyder. Growth US 32 and 36wk. 09/21 growth norm. US 10/19 (9) Anemia in preg-unspec: QUALIFIERS: Trimester: second trimester Qualified Code(s): O99.012 - Anemia complicating , second trimester COMMENT: Fe (10) PTSD (post-traumatic stress disorder): COMMENT: childhood trauma (11) Active labor at term: PLAN: Patient presents IAL, plan expectant management for , pitocin/AROM PRN if needed. Pain management: plans epidural. GBS neg. Management of any complications: monitor BS throughtout labor I have reviewed the [facility] and made any clinically relevant updates.
--- NOTE | 2021-11-07 04:11 | OP.PCM_ITS ---
Assessment & Plan (1) PTSD (post-traumatic stress disorder): COMMENT: childhood trauma (2) Anemia in preg-unspec: QUALIFIERS: Trimester: second trimester Qualified Code(s): O99.012 - Anemia complicating , second trimester COMMENT: Fe (3) Gestational diabetes mellitus: QUALIFIERS: Gestational diabetes mellitus control: diet-controlled Trimester: second trimester Qualified Code(s): O24.410 - Gestational diabetes mellitus in , diet controlled COMMENT: ref dietitian and Dr Snyder. Growth US 32 and 36wk. 09/21 growth norm. US 10/19 (4) UTI in : QUALIFIERS: Trimester: first trimester Qualified Code(s): O23.41 - Unspecified infection of urinary tract in , first trimester COMMENT: repeat negative (5) History of stillbirth: COMMENT: SOPHIE Robins had a baby who was still born full term (6) Tobacco smoking affecting : QUALIFIERS: Trimester: second trimester Qualified Code(s): O99.332 - Smoking (tobacco) complicating , second trimester COMMENT: Smokes 3 cigarettes per week (7) Supervision of high risk , antepartum: COMMENT: PRR DARCIE: PC: Lorenzo Galicia BF: Shimon (8) Anxiety with depression: COMMENT: Intensive Outpatient Therapy initial appt. 06/08. 07/17 stable (9) : QUALIFIERS: Weeks of gestation: 38 weeks Qualified Code(s): Z3A.38 - 38 weeks gestation of COMMENT: GBS Negative; anatomy nl, low risk genetic and carrier0 neg (10) History of drug abuse in remission: COMMENT: remission since 2012 *Tox screen negative 09/12/17* in recovery 3 years from heroin. recommend random drug screening. 07/17/21: (11) Active labor at term: (12) Vaginal delivery: COMMENT: SM 39 GDMA1 (13) Rash: COMMENT: fungal/steroid topical cream ordered Maternal Data Information DARCIE Calculator Estimated Delivery Date Method Current WG Current Estimate 11/14/21 LMP (Certain) 39w 0d Vaginal Delivery Operative Information Date of Procedure: 11/07/21 Pre-Operative Diagnosis: IAL Post-Operative Diagnosis: same Surgery / Procedure Performed: Spontaneous Vaginal Delivery Type of Anesthesia: Epidural Special Medications: none Estimated Blood Loss: 100 Fluids Replaced: crystalloid Findings Description of Procedure: Patient began pushing and delivered the head in the DAYANA presentation. The head was delivered atraumatically . The anterior and posterior shoulders delivered without complication followed by the rest of the and the infant was placed on the maternal abdomen. Delayed cord clamping was employed for approximately 60 seconds. Cord was clamped and cut and gentle traction was applied to the cord and the placenta delivered spontaneously immediately following it was noted to be intact with three-vessel cord. The perineum and vagina were inspected and noted to have no laceration. EBL was 100 cc. Patient and tolerated delivery well. Presentation: DAYANA Amniotic Membrane Rupture Type: Artificial Amniotic Fluid Description: Clear Placental Delivery Description: Spontaneous Placenta Disposition: [facility] Cord Vessel Description: 3 Vessels Cord Entanglement: None Delayed Cord Clamping: Yes Post Vaginal Delivery Medications Given After Delivery: IV Pitocin Episiotomy Description: None Laceration: None Complication Complications: None Procedures Urinary/Genital [id number]: [id number] Vaginal Delivery+ Care([facility])
--- NOTE | 2021-11-07 04:12 | PCM.DC ---
Discharge Instructions Diet Discharge Diet: No restrictions Activity Discharge Activity: Return to Normal Activity, May Not Drive (while taking narcotic pain medications.) and May Shower May resume sexual activity in: 4-6 weeks Dressing / Incision Call your doctor if your incision/area has: Continuous Slow Oozing, Sudden Increased Bleeding, Increased Pain/ Swelling, Increased Redness and Foul Smelling Discharge Follow Up Care Please Follow Up With: Padmini Cain MD When: Call [phone] to make an appointment with your doctor in 6 weeks. If you had elevated blood pressure or 4th degree laceration, you will need to be seen in 2 weeks. Test Results: Test results from this visit will be discussed in further detail at your follow-up appointment, if applicable. Discharge Plan Admission Admit Date/Time: 11/06/21 22:35 Attending Provider: Padmini Cain Primary Care Provider: Care PhysicianLori Primary Discharge Orders/Prescriptions Prescriptions: No Action hydroxyzine pamoate [Vistaril] 50 mg capsule 50 mg PO TID-QID PRN (Reason: anxiety) Qty: 60 RF: 4 (DME) blood-glucose meter [[employer] Blood Glucose System] Kit See Rx Instructions .ROUTE .MEDSUPPLY Qty: 1 RF: 0 (DME) [employer] Test Strip See Rx Instructions .ROUTE .MEDSUPPLY Qty: 100 RF: 4 iron 50 mg iron Tablet 1 tab PO DAILY RF: 0 Referrals / Follow Up: Care Physician,No Primary [Primary Care Provider] - Disposition Disposition (needs filled in before D/C Order can be placed): Home, Self Care
[2021-11-07 04:16] LABS: Bedside Glucose 95 mg/dL (74-106)
[2021-11-07] MEDS: Oxytocin 30 units/NS 500 ml 30 UNITS/500 ML IV.SOLN 334 UNITS IV (04:26)
[2021-11-07 05:46] LABS: Bedside Glucose 119 mg/dL (74-106)
--- NOTE | 2021-11-07 09:21 | NURSING ---
Opsite on left breast. New dressing applied 11/06/21 per manufacturing shift supervisor nurse. Drsg dry and intact.
[2021-11-07] MEDS: Nystatin/Triamcin Cream Tube 1 APPLIC TOPICAL ×2 (10:26→22:07)
[2021-11-07] MEDS: Naproxen 500 MG Tablet PO (17:47)
[2021-11-08 01:02] VITALS: BP 111/56; PULSE 81; RESP 18; TEMP 36.8
--- NOTE | 2021-11-08 07:16 | PCM.PN.OB ---
Subjective Subjective Patient doing well without complaints. Tolerating PO. Ambulating and voiding without difficulty. feeding well. Denies chest pain, shortness of breath, calf pain/swelling, fevers, chills, lightheadedness. Objective Data Objective Data Vital Signs: Vital Signs Temp Pulse Resp BP Pulse Ox 98.2 F 81 18 111/56 L 96 11/08/21 01:02 11/08/21 01:02 11/08/21 01:02 11/08/21 01:02 11/07/21 06:27 Oxygen Delivery Method Room Air Weight: 171 lb Body Mass Index (BMI) 34.5 Intake & Output: Intake and Output for Last 24 Hours 11/06/21 11/07/21 11/08/21 23:59 23:59 23:59 Intake Total 42.5 / 42.5 2260.00 / 2260.00 Output Total 1000 / 1000 Balance 42.5 / 42.5 1260.00 / 1260.00 Lab / Micro Data Result Diagrams: 11/06/21 22:55 Micro: Microbiology 11/06/21 Unknown Nasal Secretion SARS-CoV-2 Antigen (Rapid) - Final ROS Constitutional Constitutional: Reports systems reviewed and no addt'l complaints, except as documented Cardiovascular Cardiovascular: Reports systems reviewed and no addt'l complaints, except as documented Respiratory/Chest Respiratory/Chest: Reports systems reviewed and no addt'l complaints, except as documented Gastrointestinal Gastrointestinal: Reports systems reviewed and no addt'l complaints, except as documented Physical Exam Const alert, oriented x3 and no apparent distress HEENT Head and Scalp: atraumatic Resp normal respiratory effort GI soft to palpation and non-tender Bimanual Exam - Vag & Uterus: uterus non-tender Uterus Palpation: uterus fundus firm (below Umbilicus) Assessment & Plan (1) Rash: COMMENT: fungal/steroid topical cream ordered (2) Vaginal delivery: COMMENT: SM 39 GDMA1 PLAN: s/p PPD # 1 1. routine post delivery care 2. breast feeding- support given 3. rh positive 4. rubella immune (3) History of drug abuse in remission: COMMENT: remission since 2012 *Tox screen negative 09/12/17* in recovery 3 years from heroin. recommend random drug screening. 07/17/21: (4) Anxiety with depression: COMMENT: Intensive Outpatient Therapy initial appt. 06/08. 07/17 stable (5) Gestational diabetes mellitus: QUALIFIERS: Gestational diabetes mellitus control: diet-controlled Trimester: second trimester Qualified Code(s): O24.410 - Gestational diabetes mellitus in , diet controlled COMMENT: ref dietitian and Dr Snyder. Growth US 32 and 36wk. 09/21 growth norm. US 10/19
[2021-11-08 07:51] LABS: Bedside Glucose 124 mg/dL (74-106)
[2021-11-08 08:41] VITALS: BP 118/59; PULSE 79; RESP 16; TEMP 36.2; O2SAT 98
--- NOTE | 2021-11-08 10:30 | CASEMGMT ---
Social Work Labor and Delivery Consult received for maternal history of depression, anxiety, PTSD, and former substance abuse. Chart reviewed including prior social work assessments. Presented to patient's room to find the patient/mother of baby (MOB) sleeping. FOB awake. Introduced to self and checked in when the parents planned to leave today. FOB reported that may not discharge today. MOB remained asleep during this conversation. This advertising writer agreed to come back later today as time allows, or tomorrow to touch base on resources and depression. FOB agreed and asked this advertising writer about insurance questions. Answered questions as able. Plan: Will follow up with family later today as time allows, or tomorrow 11.09.2021. -DUC Boateng, SSN/SSBN [employer] EQUIPMENT OPERATOR
[2021-11-08 12:48] VITALS: BP 117/62; PULSE 80; RESP 16; TEMP 36.2
[2021-11-08] MEDS: Nystatin/Triamcin Cream Tube 1 APPLIC TOPICAL ×2 (12:59→22:28)
[2021-11-08 21:05] VITALS: BP 123/86; PULSE 91; RESP 16; TEMP 36.2
[2021-11-08] MEDS: Naproxen 500 MG Tablet PO (21:05)
[2021-11-09 02:30] VITALS: BP 106/54; PULSE 81; RESP 16; TEMP 36.9
[2021-11-09 08:24] VITALS: BP 118/77; PULSE 77; RESP 16; TEMP 36.2
[2021-11-09] MEDS: Nystatin/Triamcin Cream Tube 1 APPLIC TOPICAL (10:00)
[2021-11-09 12:28] VITALS: BP 124/79; PULSE 87; RESP 16; TEMP 36.4
--- NOTE | 2021-11-09 13:14 | PCM.PN.OB ---
Subjective Subjective Patient doing well without complaints. Tolerating PO. Ambulating and voiding without difficulty. feeding well. Denies chest pain, shortness of breath, calf pain/swelling, fevers, chills, lightheadedness. Objective Data Objective Data Vital Signs: Vital Signs Temp Pulse Resp BP Pulse Ox 97.6 F L 87 16 124/79 H 98 11/09/21 12:28 11/09/21 12:28 11/09/21 12:28 11/09/21 12:28 11/08/21 08:41 Oxygen Delivery Method Room Air Weight: 171 lb Body Mass Index (BMI) 34.5 Intake & Output: Intake and Output for Last 24 Hours 11/07/21 11/08/21 11/09/21 23:59 23:59 23:59 Intake Total 2260.00 / 2260.00 Output Total 1000 / 1000 Balance 1260.00 / 1260.00 Lab / Micro Data Result Diagrams: 11/06/21 22:55 Micro: Microbiology 11/06/21 Unknown Nasal Secretion SARS-CoV-2 Antigen (Rapid) - Final ROS Constitutional Constitutional: Reports systems reviewed and no addt'l complaints, except as documented Cardiovascular Cardiovascular: Reports systems reviewed and no addt'l complaints, except as documented Respiratory/Chest Respiratory/Chest: Reports systems reviewed and no addt'l complaints, except as documented Gastrointestinal Gastrointestinal: Reports systems reviewed and no addt'l complaints, except as documented Physical Exam Const alert, oriented x3 and no apparent distress HEENT Head and Scalp: atraumatic Resp normal respiratory effort GI soft to palpation and non-tender Bimanual Exam - Vag & Uterus: uterus non-tender Uterus Palpation: uterus fundus firm (below Umbilicus) Assessment & Plan (1) Vaginal delivery: COMMENT: 39 GDMA1 PLAN: Plan s/p PPD # 2 1. routine post delivery care 2. breast feeding- support given 3. rh positive 4. rubella immune
== END 2021-11-09 15:00 | disposition home or self-care (01) | DRG 560 ==
LOC: WP 11-07 04:12 → WPOUT 11-08 08:45
PROVIDERS: Admitting Provider Obstetrics & Gynecology; Visit Provider Obstetrics & Gynecology
DX: O99.344 Other mental disorders complicating childbirth (principal); Z37.0 Single live birth; F33.2 Major depressive disorder, recurrent severe without psychotic features; F41.9 Anxiety disorder, unspecified; F17.210 Nicotine dependence, cigarettes, uncomplicated; F10.11 Alcohol abuse, in remission; Y90.9 Presence of alcohol in blood, level not specified; O99.314 Alcohol use complicating childbirth; O99.334 Smoking (tobacco) complicating childbirth; O99.02 Anemia complicating childbirth; O24.420 Gestational diabetes mellitus in childbirth, diet controlled; O99.892 Other specified diseases and conditions complicating childbirth; R21 Rash and other nonspecific skin eruption; Z3A.39 39 weeks gestation of pregnancy; F43.10 Post-traumatic stress disorder, unspecified; Z28.310 Unvaccinated for COVID-19; Z28.21 Immunization not carried out because of patient refusal
CPT/HCPCS: 59025; 59050; 80307; 82962; 85025; 86850; 86900; 86901; 87426; 99218; 99406; J7120; A4216; G0378; J2405

== ENCOUNTER → 2022-02-12 | Outpatient (CLI) | payer MEDICAID, SELFPAY | END | disposition home or self-care (01) | LOC: LABSPEC 02-13 06:19 | PROVIDERS: Visit Provider Nurse Practitioner Women's Health | DX: N89.8 Other specified noninflammatory disorders of vagina (principal) | CPT/HCPCS: 87070; 87205 ==

== ENCOUNTER → 2023-05-30 | Outpatient (CLI) | payer MEDICAID, SELFPAY ==
--- NOTE | 2023-05-30 12:24 | US_ITS ---
INDICATION: IUD placement EXAMINATION: Ultrasound US Transvaginal Non-OB TECHNIQUE: Transvaginal (for optimal evaluation of the adnexa) pelvic ultrasound was performed. Grayscale, spectral waveform, and color flow Doppler evaluation of the adnexa. COMPARISON: FINDINGS: UTERUS: Anteverted. The uterus measures 8.1 x 6.4 x 4.2 cm. There is no uterine mass. Nabothian cyst. The endometrial stripe measures 3 mm with an IUD is noted in place . RIGHT OVARY: 1.9 x 1.9 x 1.7 cm. Non-enlarged, normal echogenicity. There is normal arterial inflow and venous outflow present in the right ovary. LEFT OVARY: 3.3 x 2.5 x 2.4 cm. There is a 1.8 cm cyst. There is normal arterial inflow and venous outflow present in the left ovary. FREE FLUID: Mild. US/Transvaginal Non- IMPRESSION: Left ovarian cyst. IUD in place. Nabothian cyst. Mild pelvic fluid. Electronically Signed: Dre Rodriges DO at 16:18 EST Reading Location ID and State: [facility] / [place] Tel [phone], Service support ,
== END | disposition home or self-care (01) ==
LOC: OPUS 12:23
PROVIDERS: Referring Provider Nurse Practitioner Women's Health; Visit Provider Nurse Practitioner Women's Health
DX: N93.9 Abnormal uterine and vaginal bleeding, unspecified (principal); Z30.431 Encounter for routine checking of intrauterine contraceptive device
CPT/HCPCS: 76830